=== PATIENT | female | born 1960 | race African-American/Black ===

== ENCOUNTER → 2017-01-17 | Outpatient (CLI) | payer BC | LOC: RAD 07:50 | PROVIDERS: ATTEND Internal Medicine | DX: C50.412 Malignant neoplasm of upper-outer quadrant of left female breast (principal) | CPT/HCPCS: 71260; 74177 ==

== ENCOUNTER → 2017-01-20 | Outpatient (CLI) | payer BC | LOC: RAD 08:16 | PROVIDERS: ATTEND Internal Medicine | DX: C50.412 Malignant neoplasm of upper-outer quadrant of left female breast (principal) | CPT/HCPCS: 78306; A9503; Q9969 ==

== ENCOUNTER 2017-09-24 08:10 | Emergency (ER) | payer BC ==
[2017-09-24 08:18] VITALS: BP 118/65
[2017-09-24] MEDS ORDERED: ALBUTEROL SULFATE 0.083% NEB 2.5 MG/3 ML AMPUL NEB ONE (09:01)
--- NOTE | 2017-09-24 09:01 | ER Document Report ---
HPI - HPI Patient complains to provider of: cough Pain Level: 4 Context: Patient is a 57-year-old female presents emergency department complaining of somewhat productive cough over the past 2 and half weeks. Patient states that it got worse since [place]. She did follow-up with her primary care about a week and a half ago who put her on prednisone, azithromycin and a cough suppressant without significant improvement in her symptoms. She denies any fevers. She denies any improvement with medications [id number]. she denies any shortness of breath, fevers, chills, dyspnea on exertion Past medical history significant for breast cancer status post mastectomy Primary care is Josie Kim - CONSTITUTIONAL Constitutional: DENIES: Fever, Chills - EENT EENT: REPORTS: Sore Throat. DENIES: Ear Pain, Eye problems - NEURO Neurology: REPORTS: Headache. DENIES: Weakness, Vision blurred, Dizzinesss / Vertigo - CARDIOVASCULAR Cardiovascular: DENIES: Chest pain - RESPIRATORY Respiratory: REPORTS: Coughing. DENIES: Trouble Breathing - GASTROINTESTINAL Gastrointestinal: DENIES: Abdominal Pain, Black / Bloody Stools - URINARY Urinary: DENIES: Dysuria, Urgency, Frequency - REPRODUCTIVE Reproductive: DENIES: : - MUSCULOSKELETAL Musculoskeletal: REPORTS: Extremity pain - generalized Past Medical History - Social History Smoking Status: Never Smoker Chew tobacco use (# tins/day): No Frequency of alcohol use: None Drug Abuse: None Family History: Reviewed & Not Pertinent Patient has suicidal ideation: No Patient has homicidal ideation: No - Past Medical History Cardiac Medical History: Reports: Hx Hypertension Denies: Hx Coronary Artery Disease, Hx Heart Attack Pulmonary Medical History: Denies: Hx Asthma, Hx Bronchitis, Hx COPD, Hx Pneumonia Neurological Medical History: Denies: Hx Cerebrovascular Accident, Hx Seizures Renal/ Medical History: Denies: Hx Peritoneal Dialysis Malignancy Medical History: Reports: Hx Breast Cancer - Treated with chemotherapy. Current remission. Musculoskeltal Medical History: Denies Hx Arthritis Past Surgical History: Reports: Hx Breast Surgery - lumpectomy, lymphnodectomy L axilla, Hx Hysterectomy - Immunizations Hx Diphtheria, Pertussis, Tetanus Vaccination: Yes Vertical Provider Document - CONSTITUTIONAL Agree With Documented VS: Yes Notes: PHYSICAL EXAM GENERAL: Alert, interacts well. HEAD: Normocephalic, atraumatic. EYES: Pupils equal, round, and reactive to light. Extraocular movements intact. ENT: Oral mucosa moist, tongue midline. NECK: Full range of motion. Supple. Trachea midline. LUNGS: Clear to auscultation bilaterally, no wheezes, rales, or rhonchi. No respiratory distress. HEART: Regular rate and rhythm. No murmurs, gallops, or rubs. NEUROLOGICAL: Alert and oriented x4. Normal speech. PSYCH: Normal affect, normal mood. SKIN: Warm, dry, normal turgor. No rashes or lesions noted. - INFECTION CONTROL TRAVEL OUTSIDE OF THE [place] IN LAST 30 DAYS: No - RESPIRATORY O2 Sat by Pulse Oximetry: 96 Course - Re-evaluation Re-evalutation: 09/24/17 09:48 Patient is a 57-year-old female who is hemodynamically stable, no acute distress and afebrile. Chest x-ray completed in the emergency department shows development of a left upper lobe pneumonia. Patient will be initiated on levothyroxine, patient did feel better after breathing treatment in the department also included with her discharge. Discussed with her indications to follow-up with her primary care for repeat imaging and follow-up. She agrees with plan. We did discuss strict return precautions. Patient is stable for discharge home - Vital Signs Vital signs: Temp Pulse Resp BP Pulse Ox 98.4 F 101 H 16 118/65 96 09/24/17 08:16 09/24/17 08:16 09/24/17 08:16 09/24/17 08:16 09/24/17 08:16 - Diagnostic Test Radiology reviewed: Image reviewed, Reports reviewed Discharge - Discharge Clinical Impression: Pneumonia Qualifiers: Pneumonia type: due to unspecified organism Laterality: left Lung location: upper lobe of lung Qualified Code(s): J18.1 - Lobar pneumonia, unspecified organism Condition: Good Disposition: HOME, SELF-CARE Additional Instructions: PNEUMONIA: Your examination indicates that you have pneumonia. This is an infection of the lung tissue, usually caused by bacteria or a virus. Symptoms include cough, fever, shaking chills, chest pain, shortness of breath, and coughing up bloody sputum. Treatment for bacterial pneumonia includes rest, antibiotics for 10 to 14 days, increasing your clear liquid intake, a cool mist humidifier at your bedside, and fever medication. Often, a repeat chest X-ray is performed in a few weeks--even if you feel better--to ascertain whether the infection has completely resolved and no underlying lung problem is present. You should call the physician if you develop persistent vomiting, high fever that does not respond to fever medication, increasing shortness of breath , confusion, or lethargy. Also, failure to improve within two to three days is an indication for re-examination. ANTIBIOTIC INJECTION: You have been given an antibiotic injection. Sometimes the injection must be combined with antibiotic pills. For some infections, the shot provides all the antibiotic that's needed. Common side effects of antibiotics include nausea, intestinal cramping, or diarrhea. These are very unusual following a shot. Women may develop vaginal yeast infections, and babies can get yeast ( thrush) in the mouth following the use of antibiotics. Contact your physician if you develop significant side effects from this medication. Allergy to this antibiotic can result in hives, wheezing, faintness, or itching. If symptoms of allergy occur, call the doctor at once. ANTIBIOTIC THERAPY: You have been given an antibiotic prescription. It's important that you take all the medication, unless instructed otherwise by your physician. Failure to complete the entire course can result in relapse of your condition. Common side effects of antibiotics include nausea, intestinal cramping, or diarrhea. Women may develop vaginal yeast infections, and babies can get yeast (thrush) in the mouth following the use of antibiotics. Contact your physician if you develop significant side effects from this medication. Allergy to this antibiotic can result in hives, wheezing, faintness, or itching. If symptoms of allergy occur, stop the medication and call the doctor. LEVOFLOXACIN: You have been given an antibacterial agent, levofloxacin (Levaquin). This medicine is not related to the penicillins, sulfas, cephalosporins, or tetracyclines. It is often given to patients who are allergic to these drugs. It has been chosen for you either because other drugs are not appropriate, or because of the nature of your problem. Levaquin should not be taken with antacids, as these can decrease its effectiveness. It can be taken without regard to meals. LEVAQUIN SHOULD NOT BE TAKEN BY CHILDREN, NURSING WOMEN, OR WOMEN. Although Levaquin is usually well-tolerated, common side effects can include nausea and diarrhea. Contact your doctor if you experience any unusual symptoms while on this medication, such as joint pain or swelling, shortness of breath, wheezing, faintness, or hives. USE OF ACETAMINOPHEN (Tylenol): Acetaminophen may be taken for pain relief or fever control. It's much safer than aspirin, offering a wider range of "safe" dosages. It is safe during . Some brand names are Tylenol, Panadol, Datril, Anacin 3, Tempra, and Liquiprin. Acetaminophen can be repeated every four hours. The following are maximum recommended dosages: WEIGHT Dose Drops Elixir Chewable( 80mg) (LBS.) drprs=droppers tsp=teaspoon 6 40 mg 0.4 ml (1/2) 6-11 80 mg 0.8 ml (full) tsp 1 tab 12-16 120 mg 1 1/2 drprs 3/4 tsp 1 1/2 tabs 17-23 160 mg 2 drprs 1 tsp 2 tabs 24-30 240 mg 3 drprs 1 1/2 tsp 3 tabs 30-35 320 mg 2 tsp 4 tabs 36-41 360 mg 2 1/4 tsp 4 1/2 tabs 42-47 400 mg 2 1/2 tsp 5 tabs 48-53 480 mg 3 tsp 6 tabs 54-59 520 mg 3 1/4 tsp 6 1/2 tabs 60-64 560 mg 3 1/2 tsp 7 tabs 65-70 600 mg 3 3/4 tsp 7 1/2 tabs 71-76 640 mg 4 tsp 8 tabs 77-82 720 mg 4 1/2 tsp 9 tabs 83-88 800 mg 5 tsp 10 tabs >89 pounds or adults 650 mg to 900 mg Acetaminophen can be repeated every four hours. Maximum dose not to exceed 4000 mg a day. These maximum recommended dosages are slightly higher than the dosages written on the product container, but these dosages are very safe and below the toxic dosage for acetaminophen. FOLLOW-UP CARE: If you have been referred to a physician for follow-up care, call the physician s office for an appointment as you were instructed or within the next two days. If you experience worsening or a significant change in your symptoms, notify the physician immediately or return to the Emergency Department at any time for re-evaluation. Prescriptions: Albuterol Sulfate [Proair HFA Inhalation Aerosol 8.5 gm MDI] 2 puff IH Q4H PRN # 1 mdi PRN Reason: Levofloxacin 750 mg PO DAILY #5 tablet Referrals: JOSIE KIM DO [Primary Care Provider] - Follow up in 1 week
--- NOTE | 2017-09-24 09:24 | RADIOLOGY REPORT (SQ) ---
EXAM DESCRIPTION: CHEST PA/LAT COMPLETED DATE/TIME: 09/24/2017 9:15 am REASON FOR STUDY: cough COMPARISON: 07/13/2014 EXAM PARAMETERS: NUMBER OF VIEWS: two views TECHNIQUE: Digital Frontal and Lateral radiographic views of the chest acquired. RADIATION DOSE: NA LIMITATIONS: none FINDINGS: LUNGS AND PLEURA: Increased opacity left upper lobe suspicious for pneumonia. Lungs and p leural spaces otherwise clear. MEDIASTINUM AND HILAR STRUCTURES: No masses or contour abnormalities. HEART AND VASCULAR STRUCTURES: Heart normal size. No evidence for failure. BONES: No acute findings. HARDWARE: Stable with port in place. OTHER: No other significant finding. IMPRESSION: INCREASED LEFT UPPER LOBE AIRSPACE OPACITIES SUGGESTIVE OF DEVELOPING PNEUMONIA. RECOMM END FOLLOWUP RADIOGRAPHS 4 TO 6 WEEKS TO ENSURE RESOLUTION. TECHNICAL DOCUMENTATION: JOB ID: [id number] [employer]- All Rights Reserved
[2017-09-24] MEDS ORDERED: LEVOFLOXACIN 750 MG TABLET PO ONE (09:51)
== END 2017-09-24 10:01 | disposition home or self-care (01) ==
LOC: ER 08:10
DX: J18.1 Lobar pneumonia, unspecified organism (principal); R05 Cough; R51 Headache; Z85.3 Personal history of malignant neoplasm of breast
CPT/HCPCS: 71020; 94640; 99283

== ENCOUNTER 2017-10-13 12:34 | Inpatient (IN) | payer BC ==
[2017-10-13] MEDS ORDERED: IPRATROPIUM/ALBUTEROL 0.5-2.5 MG/3 ML AMPUL NEB ONE (14:42)
--- NOTE | 2017-10-13 14:42 | ER Document Report ---
ED Medical Screen (RME) - General Chief Complaint: Cough Stated Complaint: COUGH Time Seen by Provider: 10/13/17 14:16 Mode of Arrival: Ambulatory Information source: Patient Notes: 57-year-old female who states she has been sick since [place] diagnosed with pneumonia has been on multiple antibiotics presents with complaints of continued shortness breath difficulty breathing productive cough I have greeted and performed a rapid initial assessment of this patient. A comprehensive ED assessment and evaluation of the patient, analysis of test results and completion of the medical decision making process will be conducted by additional ED providers. PHYSICAL EXAMINATION: GENERAL: Moderately well-appearing HEAD: Atraumatic, normocephalic. EYES: Pupils equal round extraocular movements intact, conjunctiva are normal. ENT: Nares patent NECK: Normal range of motion LUNGS: Intermittent rhonchi tachycardic tachypneic Musculoskeletal: Normal range of motion NEUROLOGICAL: Normal speech, normal gait. PSYCH: Normal mood, normal affect. SKIN: Warm, Dry, normal turgor, no rashes or lesions noted. TRAVEL OUTSIDE OF THE [place] IN LAST 30 DAYS: No - Related Data Allergies/Adverse Reactions: No Known Allergies Allergy (Verified 09/24/17 08:11) Past Medical History - Social History Chew tobacco use (# tins/day): No Frequency of alcohol use: None Drug Abuse: None - Past Medical History Cardiac Medical History: Reports: Hx Hypertension Denies: Hx Coronary Artery Disease, Hx Heart Attack Pulmonary Medical History: Denies: Hx Asthma, Hx Bronchitis, Hx COPD, Hx Pneumonia Neurological Medical History: Denies: Hx Cerebrovascular Accident, Hx Seizures Renal/ Medical History: Denies: Hx Peritoneal Dialysis Malignancy Medical History: Reports: Hx Breast Cancer - Treated with chemotherapy. Current remission. Musculoskeltal Medical History: Denies Hx Arthritis Past Surgical History: Reports: Hx Breast Surgery - lumpectomy, lymphnodectomy L axilla, Hx Hysterectomy - Immunizations Hx Diphtheria, Pertussis, Tetanus Vaccination: Yes Physical Exam - Vital signs Vitals: Temp Pulse Resp BP Pulse Ox 99.0 F 113 H 14 107/66 95 10/13/17 13:13 10/13/17 13:13 10/13/17 13:13 10/13/17 13:13 10/13/17 13:13 Course - Vital Signs Vital signs: Temp Pulse Resp BP Pulse Ox 99.0 F 113 H 14 107/66 95 10/13/17 13:13 10/13/17 13:13 10/13/17 13:13 10/13/17 13:13 10/13/17 13:13
--- NOTE | 2017-10-13 15:02 | RADIOLOGY REPORT (SQ) ---
EXAM DESCRIPTION: CHEST PA/LAT COMPLETED DATE/TIME: 10/13/2017 2:52 pm REASON FOR STUDY: recent pneumonia COMPARISON: 09/24/2017 EXAM PARAMETERS: NUMBER OF VIEWS: two views TECHNIQUE: Digital Frontal and Lateral radiographic views of the chest acquired. RADIATION DOSE: NA LIMITATIONS: none FINDINGS: LUNGS AND PLEURA: Patchy bilateral airspace densities are identified which are slightly mo re pronounced in the right lung as compared to the left and a more pronounced than on the previous st udy. No pleural effusions are identified. MEDIASTINUM AND HILAR STRUCTURES: No masses or contour abnormalities. HEART AND VASCULAR STRUCTURES: The configuration of the heart mediastinal structures is unchanged BONES: No acute findings. HARDWARE: Port-A-Cath is unchanged in position OTHER: No other significant finding. IMPRESSION: Patchy bilateral airspace densities right greater than left which appear more pronounced as compared to the previous study the appearance is most consistent with patchy pneumonic infiltrate s. Other findings as noted above TECHNICAL DOCUMENTATION: JOB ID: [id number] [employer]- All Rights Reserved
[2017-10-13 15:35] LABS: AMORPHOUS SEDIMENT,URINE TRACE /HPF; APPEARANCE,URINE CLOUDY; BILIRUBIN,URINE NEGATIVE (NEGATIVE); COLOR,URINE YELLOW; GLUCOSE, URINE NEGATIVE (NEGATIVE); KETONES,URINE NEGATIVE (NEGATIVE); LEUKOCYTE ESTERASE,URINE NEGATIVE (NEGATIVE); NITRITE,URINE NEGATIVE (NEGATIVE); PROTEIN,URINE 30 mg/dL (NEGATIVE); URINE SPECIFIC GRAVITY 1.033
--- NOTE | 2017-10-13 15:35 | ER Document Report ---
ED Respiratory Problem - General Mode of Arrival: Ambulatory Information source: Patient TRAVEL OUTSIDE OF THE [place] IN LAST 30 DAYS: No <KAREN MATTHEWS - Last Filed: 10/13/17 19:49> <EDUIN DEXTER - Last Filed: 10/13/17 21:00> - General Chief Complaint: Cough Stated Complaint: COUGH Time Seen by Provider: 10/13/17 14:16 Notes: Patient is a 57-year-old female with a history breast cancer status post double mastectomy who presents to the emergency department today with complaints of a persistent cough with associated shortness of breath. Patient was diagnosed with pneumonia on [place] and was put on Levaquin. Patient states after the Levaquin prescription was completed the cough remained so Dr. Pedroza gave her augmentin as well. Patient states she still has not gotten any better and is continuing to have a persistent cough. Patient denies any fevers at home. ( KAREN MATTHEWS) - Related Data Allergies/Adverse Reactions: No Known Allergies Allergy (Verified 09/24/17 08:11) Past Medical History - General Information source: Patient - Social History Smoking Status: Former Smoker Cigarette use (# per day): No Chew tobacco use (# tins/day): No Frequency of alcohol use: None Drug Abuse: None Lives with: Family Family History: Reviewed & Not Pertinent Patient has suicidal ideation: No Patient has homicidal ideation: No - Past Medical History Cardiac Medical History: Reports: Hx Hypertension Malignancy Medical History: Reports: Hx Breast Cancer - Treated with chemotherapy. Current remission. Double mastectomy. Past Surgical History: Reports: Hx Breast Surgery - lumpectomy, lymphnodectomy L axilla, double mastectomy, Hx Hysterectomy - Immunizations Hx Diphtheria, Pertussis, Tetanus Vaccination: Yes <KAREN MATTHEWS - Last Filed: 10/13/17 19:49> Review of Systems - Review of Systems Constitutional: denies: Fever EENT: No symptoms reported Cardiovascular: No symptoms reported Respiratory: See HPI, Cough, Short of breath Gastrointestinal: No symptoms reported Genitourinary: No symptoms reported Female Genitourinary: No symptoms reported Musculoskeletal: No symptoms reported Skin: No symptoms reported Hematologic/Lymphatic: No symptoms reported Neurological/Psychological: No symptoms reported -: Yes All other systems reviewed and negative <KAREN MATTHEWS - Last Filed: 10/13/17 19:49> Physical Exam <KAREN MATTHEWS - Last Filed: 10/13/17 19:49> <EDUIN DEXTER - Last Filed: 10/13/17 21:00> - Vital signs Vitals: Temp Pulse Resp BP Pulse Ox 99.0 F 113 H 14 107/66 95 10/13/17 13:13 10/13/17 13:13 10/13/17 13:13 10/13/17 13:13 10/13/17 13:13 - Notes Notes: PHYSICAL EXAM GENERAL: Alert, interacts well. Moderate respiratory distress with coughing and talking. HEAD: Normocephalic, atraumatic. EYES: Pupils equal, round, and reactive to light. Extraocular movements intact. ENT: Oral mucosa moist, tongue midline. NECK: Full range of motion. Supple. Trachea midline. LUNGS: Dry cough. Trace wheeze that clears with cough. Appears short of breath after cough and after talking. Speaks in 4-5 word sentences. Moderate respiratory distress. HEART: Regular rate and rhythm. No murmurs, gallops, or rubs. ABDOMEN: Soft, non-tender. Non-distended. Bowel sounds present in all 4 quadrants. EXTREMITIES: Moves all 4 extremities spontaneously. No edema, radial and dorsalis pedis pulses 2/4 bilaterally. No cyanosis. NEUROLOGICAL: Alert and oriented x3. Normal speech. PSYCH: Anxious, tearful when discussing plan of care. SKIN: Warm, dry, normal turgor. No rashes or lesions noted. (KAREN MATTHEWS) Course - Laboratory Result Diagrams: 10/13/17 17:33 10/13/17 19:09 <KAREN MATTHEWS - Last Filed: 10/13/17 19:49> - Laboratory Result Diagrams: 10/13/17 17:33 10/13/17 19:09 <EDUIN DEXTER - Last Filed: 10/13/17 21:00> - Re-evaluation Re-evalutation: 10/13/17 18:34 Ultrasound-guided IV placed in the right antecubital fossa by me. 20-gauge, tolerated well, good flash and blood return, flushed easily. 10/13/17 18:35 CBC shows anemia with hemoglobin 10.3, no leukocytosis, coags has a slightly prolonged INR 1.12, venous blood gas is alkalotic with pH of 7.48, lactic acid normal at 1.2, urinalysis shows protein but no signs of infection, chest x-ray shows patchy bilateral airspace densities right greater than left which appear more pronounced as compared to previous study, the appearance is most consistent with patchy pneumonic infiltrates. I am concerned for the possibility of pulmonary embolism given the hypoxia and the tachycardia in the absence of leukocytosis, I am also concerned for other possible underlying process, this will be better visualized on CAT scan. CT angiogram has been ordered but I am awaiting renal function. 10/13/17 20:49 CT of the chest shows multifocal airspace disease is seen on chest radiograph presumably representing pneumonia. Correlate with fever and elevated white blood cell count. Mediastinal and right hilar lymphadenopathy new compared to prior study presumably reactive to pneumonia however neoplasm cannot be excluded given history of breast cancer. Consider follow-up CT in 3 months to ensure resolution. Small right pleural effusion likely reactive. When patient talks and coughs she desats to 91%. She is still tachycardic and tachypneic, appears quite short of breath. Patient has been started on Rocephin and azithromycin. No indication for steroids at this time. I am awaiting consultation with hospitalist for possible admission. 10/13/17 20:59 When I walked in to discuss this with the patient she was talking on the phone and she was satting 86% on room air with good waveform. When she stops talking she does rebound quickly. Patient is in agreement with admission, aware that this is likely pneumonia but we cannot rule out cancer with the new mediastinal lymphadenopathy. Discussed with Dr. Phan who is agreeable to admission to his service on telemetry care unit. (EDUIN DEXTER) - Vital Signs Vital signs: Temp Pulse Resp BP Pulse Ox 99.3 F 113 H 25 H 124/73 90 L 10/13/17 19:30 10/13/17 13:13 10/13/17 20:33 10/13/17 20:34 10/13/17 20:34 - Laboratory Laboratory results interpreted by me: 10/13/17 10/13/17 10/13/17 14:36 14:38 17:33 RBC 3.62 L Hgb 10.3 L Hct 31.3 L RDW 16.3 H Seg Neutrophils % 81.6 H Lymphocytes % 10.6 L Absolute Neutrophils 8.4 H VBG pH Potassium POC Glucose 111 H Total Protein Albumin Urine Protein 30 H Urine Urobilinogen 4.0 H 10/13/17 10/13/17 17:33 19:09 RBC Hgb Hct RDW Seg Neutrophils % Lymphocytes % Absolute Neutrophils VBG pH 7.48 H Potassium 3.1 L POC Glucose Total Protein 5.9 L Albumin 2.9 L Urine Protein Urine Urobilinogen - EKG Interpretation by Me Additional EKG results interpreted by me: 10/13/17 20:50 CBC shows sinus tachycardia at a rate of 112, normal axis, normal intervals, no ST segment elevations or depressions, some T-wave flattening in lead III and aVF but no true inversions per my interpretation. (EDUIN DEXTER) Critical Care Note - Critical Care Note Total time excluding time spent on procedures (mins): 40 <EDUIN DEXTER - Last Filed: 10/13/17 21:00> Discharge <KAREN MATTHEWS - Last Filed: 10/13/17 19:49> - Discharge Admitting Provider: [facility] Unit Admitted: Telemetry <EDUIN DEXTER - Last Filed: 10/13/17 21:00> - Discharge Clinical Impression: Multifocal pneumonia, Acute respiratory failure with hypoxia Condition: Fair Disposition: ADMITTED INPATIENT Referrals: JOSIE KIM DO [Primary Care Provider] - Follow up as needed Scribe Attestation: 10/13/17 21:00 I personally performed the services described in the documentation, reviewed and edited the documentation which was dictated to the scribe in my presence, and it accurately records my words and actions. (EDUIN DEXTER) Scribe Documentation - Scribe Written by Rosalee:: Rosalee Rausch, 10/13/2017 1823 acting as scribe for :: Quirino <KAREN MATTHEWS - Last Filed: 10/13/17 19:49>
[2017-10-13] MEDS ORDERED: CEFTRIAXONE 1 GM/D5W RTU 1 GM/50 ML RTUPB IV ONE (15:39)
[2017-10-13] MEDS ORDERED: AZITHROMYCIN INJ 500 MG VIAL IV ONE ×2 (15:39→19:41)
[2017-10-13] MEDS ORDERED: RINGERS SOLUTION,LACTATED 1,000 ML IV ONE ×2 (15:39→19:52)
[2017-10-13 17:53] LABS: ABSOLUTE EOSINOPHILS # (AUTO) 0.1 10^3/uL (0.0-0.6); ABSOLUTE LYMPHOCYTES (AUTO) 1.1 10^3/uL (0.5-4.7); ABSOLUTE MONOCYTES (AUTO) 0.7 10^3/uL (0.1-1.4); ABSOLUTE NEUT (AUTO) 8.4 10^3/uL (1.7-8.2); BASOPHILS % (AUTO) 0.2 % (0-2); EOSINOPHILS % (AUTO) 0.9 % (0-6); HEMATOCRIT 31.3 % (36.0-47.0); HEMOGLOBIN 10.3 g/dL (12.0-15.5); LYMPHOCYTES % (AUTO) 10.6 % (13-45); MEAN CORPUSCULAR HEMOGLOBIN 28.5 pg (27.0-33.4); MEAN CORPUSCULAR VOLUME 86 fl (80-97); MONOCYTES % (AUTO) 6.7 % (3-13); PLATELET COUNT 358 10^3/uL (150-450); RED BLOOD COUNT 3.62 10^6/uL (3.72-5.28); RED CELL DISTRIBUTION WIDTH 16.3 % (11.5-14.0); SEGMENTED NEUTROPHILS % (AUTO) 81.6 % (42-78); TOTAL CELLS COUNTED % (AUTO) 100 %; WHITE BLOOD COUNT 10.3 10^3/uL (4.0-10.5)
[2017-10-13 17:54] LABS: VENOUS BLOOD BASE EXCESS 5.4 mmol/L; VENOUS BLOOD HCO3 29.3 mmol/L (20-32); VENOUS BLOOD PCO2 40.1 mmHg (35-63); VENOUS BLOOD PH 7.48 (7.30-7.42)
[2017-10-13] MEDS ORDERED: IBUPROFEN 800 MG TABLET PO ONE (18:01)
[2017-10-13 18:03] LABS: INTERNATIONAL RATION (INR) 1.12; PROTHROMBIN TIME 15.2 SEC (11.4-15.4)
[2017-10-13] MEDS ORDERED: BENZONATATE 100 MG CAPSULE PO ONE (18:46)
[2017-10-13] MEDS ORDERED: CEFTRIAXONE INJ 1000 MG VIAL ONE (19:41)
[2017-10-13 19:44] LABS: ALANINE AMINOTRANSFERASE 36 U/L (9-52); ALBUMIN 2.9 g/dL (3.5-5.0); ALKALINE PHOSPHATASE 92 U/L (38-126); ANION GAP 8 (5-19); ASPARTATE AMINO TRANSFERASE 30 U/L (14-36); BILIRUBIN,DIRECT 0.3 mg/dL (0.0-0.4); BILIRUBIN,TOTAL 0.3 mg/dL (0.2-1.3); BLOOD UREA NITROGEN 12 mg/dL (7-20); CALCIUM 8.8 mg/dL (8.4-10.2); CARBON DIOXIDE 30 mmol/L (22-30); CHLORIDE 100 mmol/L (98-107); GLUCOSE 109 mg/dL (75-110); POTASSIUM 3.1 mmol/L (3.6-5.0); SODIUM 138.1 mmol/L (137-145); TOTAL PROTEIN 5.9 g/dL (6.3-8.2)
--- NOTE | 2017-10-13 20:24 | RADIOLOGY REPORT (SQ) ---
EXAM DESCRIPTION: CTA CHEST COMPLETED DATE/TIME: 10/13/2017 8:14 pm REASON FOR STUDY: persistent pneumonia, possible PE COMPARISON: Chest radiograph from 10/13/[address] from 01/17/2017 TECHNIQUE: CT scan of the chest performed using helical scanning technique with dynamic intravenous contrast injection. Images reviewed with lung, soft tissue and bone windows. Reconstructed coronal and sagittal MPR images reviewed. Additional 3 dimensional post-processing performed to develop Maximal Intensity Projection images (WA P). All images stored on PACS. All CT scanners at this facility use dose modulation, iterative reconstruction, and/or weight based d osing when appropriate to reduce radiation dose to as low as reasonably achievable (ALARA). [facility]: Dose Right [facility]: CareDose [facility]: Dose Right [facility]: Teradose 4D [facility]: Pilot Systems CONTRAST TYPE AND DOSE: contrast/concentration: Isovue 370.00 mg/ml; Total Contrast Delivered: 90.0 ml; Total Saline Delivered: 64.7 ml Contrast bolus optimized for the pulmonary arteries. Not diagnostic for the aorta. RENAL FUNCTION: GFR > 60. RADIATION DOSE: CT Rad equipment meets quality standard of care and radiation dose reduction techniq ues were employed. CTDIvol: 16.5 - 23.3 mGy. DLP: 784 mGy-cm. . LIMITATIONS: None. FINDINGS: LUNGS AND PLEURA: Multifocal airspace disease as seen on chest radiograph most severely in volving the right upper lobe and right middle lobe with lesser involvement of the right greater than left lower lobes. Stable fibrotic change involving the left upper lobe presumably sequela to prior r adiation therapy. There is a small right pleural effusion. Left pleural spaces clear. AORTA AND GREAT VESSELS: No aneurysm. Contrast bolus not optimized for the aorta. HEART: No pericardial effusion. No significant coronary artery calcifications. PULMONARY ARTERIES: No emboli visualized in the main pulmonary arteries or the segmental branches. HILAR AND MEDIASTINAL STRUCTURES: Mildly prominent mediastinal and right hilar lymph nodes measuring up to 2 in short axis. HARDWARE: None in the chest. UPPER ABDOMEN: Stable hepatic cyst No significant findings. Limited exam. THYROID AND OTHER SOFT TISSUES: No masses. No adenopathy. BONES: No acute or significant finding. 3D MIPS: Confirm above findings. OTHER: No other significant finding. IMPRESSION: NO PULMONARY EMBOLI. MULTIFOCAL AIRSPACE DISEASE SEEN ON CHEST RADIOGRAPH PRESUMABLY REPRESENTING PNEUMONIA. CORRELATE WITH FEVER AND ELEVATED WHITE BLOOD CELL COUNT. MEDIASTINAL AND RIGHT HILAR LYMPHADENOPATHY NEW COMPARED TO PRIOR STUDY PRESUMABLY REACTIVE TO PNEUMO VEENA HOWEVER NEOPLASM CANNOT BE EXCLUDED GIVEN HISTORY OF BREAST CANCER. CONSIDER FOLLOW-UP CT CHEST IN 3 MONTHS TO ENSURE RESOLUTION. SMALL RIGHT PLEURAL EFFUSION LIKELY REACTIVE. COMMENT: Quality ID # [id number]: Final reports with documentation of one or more dose reduction techniques (e.g., Automated exposure control, adjustment of the mA and/or kV according to patient size, use of iterative reconstruction technique) TECHNICAL DOCUMENTATION: JOB ID: [id number] ID [employer]- All Rights Reserved
[2017-10-13] MEDS ORDERED: IPRATROPIUM/ALBUTEROL 0.5-2.5 MG/3 ML AMPUL NEB PRN (20:59)
[2017-10-13] MEDS ORDERED: HYDRALAZINE HCL INJ/PF 20 MG/1 ML SDV IV PRN (20:59)
[2017-10-13] MEDS ORDERED: (PENDING PHARMACY ID) (Losartan/Hydrochlorothiazide [Hyzaar 50-12.5 Tablet] 1 EACH) PO PRN (21:03)
[2017-10-13] MEDS ORDERED: CHLORPHENIRAMINE MALEATE 4 MG TABLET PO ONE (21:30)
[2017-10-13] MEDS: FLUTICASONE NASAL SPRAY 50 MCG/SPRY 120 SPRAY/16 GM NASL SCH (21:58)
[2017-10-13] MEDS: GUAIFENESIN 600 MG TABLET.SA PO SCH (22:02)
[2017-10-13] MEDS: HEPARIN SOD (PORCINE) 5,000 UNIT/ML 1 ML SYRINGE SUBCUT SCH (22:05)
[2017-10-13] MEDS ORDERED: LACTULOSE SYRUP 20 GM/30 ML UDCUP PO ONE (23:08)
[2017-10-13] MEDS ORDERED: IBUPROFEN 800 MG TABLET PO PRN (23:43)
[2017-10-13] MEDS: NORMAL SALINE 1000 ML 1,000 ML IV SCH (23:59)
[2017-10-13] MEDS: GUAIFENESIN SYRP 200 MG/10 ML UDC PO PRN (23:59)
[2017-10-14] MEDS: BENZONATATE 100 MG CAPSULE PO PRN ×3 (02:09→17:26)
[2017-10-14] MEDS: IPRATROPIUM/ALBUTEROL 0.5-2.5 MG/3 ML AMPUL NEB SCH ×4 (02:30→20:54)
[2017-10-14] MEDS: NORMAL SALINE 1000 ML 1,000 ML IV SCH ×2 (03:12→11:04)
[2017-10-14] MEDS ORDERED: INFLUENZA ADLT QUAD (36MOS+) 2017-18 VAC 0.5 ML SYR IM PRN (05:15)
[2017-10-14] MEDS: GUAIFENESIN SYRP 200 MG/10 ML UDC PO PRN ×4 (05:15→22:11)
--- NOTE | 2017-10-14 06:04 | PDOC H&P ---
History of Present Illness Admission Date/PCP: 10/13/17 21:09 JOSIE KIM DO Patient complains of: Shortness of breath and cough History of Present Illness: ARNULFO DE LEÓN is a 57 year old female with a past medical history of breast cancer status post double mastectomy. She presents to the emergency room with rhinorrhea, cough and shortness of breath of increasing severity over the last 6 weeks despite treatment with 2 courses of antibiotics Levaquin followed by Augmentin. In the emergency room she is found to have tachypnea and tachycardia and a CT of the chest showing multifocal airspace disease suggestive of pneumonia versus neoplasm, concerning giving her history and lack of significant leukocytosis. She started on empiric antibiotics, albuterol and Atrovent and referred to the hospitalist for admission. Patient denies chest pain nausea vomiting but has significant anxiety. Past Medical History Cardiac Medical History: Reports: Hypertension Denies: Coronary Artery Disease, Myocardial Infarction Pulmonary Medical History: Denies: Asthma, Bronchitis, Chronic Obstructive Pulmonary Disease (COPD), Pneumonia Neurological Medical History: Denies: Seizures Malignancy Medical History: Reports: Breast Cancer - Treated with chemotherapy. Current remission. Double mastectomy. Musculoskeltal Medical History: Denies: Arthritis Psychiatric Medical History: Reports: Depression Hematology: Reports: Anemia - hx of Past Surgical History Past Surgical History: Reports: Hysterectomy Social History Information Source: Patient, [facility] Records Lives with: Family Smoking Status: Former Smoker Last Time Smoked: 5 years Frequency of Alcohol Use: None Hx Recreational Drug Use: No Drugs: None Hx Prescription Drug Abuse: No - Advance Directive Resuscitation Status: Full Code Family History Family History: Hypertension Parental Family History Reviewed: Yes Children Family History Reviewed: Yes Sibling(s) Family History Reviewed.: Yes Medication/Allergy Home Medications: Albuterol Sulfate [Albuterol Sulfate 2.5mg/3 mL] 1 vial IH Q8HP PRN 10/13/17 Amox Tr/Potassium Clavulanate [Augmentin 875-125 mg Tablet] 1 tab PO DAILY 10/13 Anastrozole [Arimidex 1 mg Tablet] 1 mg PO DAILY 10/13/17 Benzonatate [Tessalon Perles 100 mg Capsule] 200 mg PO Q8HP PRN 10/13/17 Cetirizine HCl [Zyrtec 10 mg Tablet] 10 mg PO DAILY 10/13/17 Furosemide [Lasix 20 mg Tablet] 20 mg PO DAILY 10/13/17 Ibuprofen [Motrin 800 mg Tablet] 800 mg PO Q8HP PRN 10/13/17 Letrozole [Femara 2.5 Mg Tablet] 2.5 mg PO DAILY 10/13/17 Losartan/Hydrochlorothiazide [Losartan-Hctz 50-12.5 mg Tab] 1 each PO DAILY Allergies/Adverse Reactions: No Known Allergies Allergy (Verified 09/24/17 08:11) Review of Systems Constitutional: ABSENT: chills, fever(s), headache(s), weight gain, weight loss Eyes: ABSENT: visual disturbances Ears: ABSENT: hearing changes Cardiovascular: ABSENT: chest pain, dyspnea on exertion, edema, orthropnea, palpitations Respiratory: ABSENT: cough, hemoptysis Gastrointestinal: ABSENT: abdominal pain, constipation, diarrhea, hematemesis, hematochezia, nausea, vomiting Genitourinary: ABSENT: dysuria, hematuria Musculoskeletal: ABSENT: joint swelling Integumentary: ABSENT: rash, wounds Neurological: ABSENT: abnormal gait, abnormal speech, confusion, dizziness, focal weakness, syncope Psychiatric: ABSENT: anxiety, depression, homidical ideation, suicidal ideation Endocrine: ABSENT: cold intolerance, heat intolerance, polydipsia, polyuria Hematologic/Lymphatic: ABSENT: easy bleeding, easy bruising Physical Exam Vital Signs: Temp Pulse Resp BP Pulse Ox 99.5 F 101 H 20 118/71 93 10/14/17 02:35 10/14/17 02:45 10/14/17 02:45 10/14/17 02:35 10/14/17 02:45 Intake & Output 10/12/17 10/13/17 10/14/17 11:59 11:59 11:59 Weight 80.1 kg General appearance: PRESENT: cooperative, mild distress Head exam: PRESENT: atraumatic, normocephalic Eye exam: PRESENT: conjunctiva pink, EOMI, PERRLA. ABSENT: scleral icterus Ear exam: PRESENT: normal external ear exam Mouth exam: PRESENT: moist, tongue midline Neck exam: ABSENT: carotid bruit, JVD, lymphadenopathy, thyromegaly Respiratory exam: PRESENT: accessory muscle use, crackles, prolonged expiratory phas, symmetrical, tachypnea. ABSENT: chest wall tenderness, rhonchi Cardiovascular exam: PRESENT: RRR. ABSENT: diastolic murmur, rubs, systolic murmur Pulses: PRESENT: normal dorsalis pedis pul Vascular exam: PRESENT: normal capillary refill GI/Abdominal exam: PRESENT: normal bowel sounds, soft. ABSENT: distended, guarding, mass, organolmegaly, rebound, tenderness Rectal exam: PRESENT: deferred Extremities exam: PRESENT: calf tenderness Neurological exam: PRESENT: alert, awake, oriented to person, oriented to place , oriented to time, oriented to situation, CN II-XII grossly intact. ABSENT: motor sensory deficit Psychiatric exam: PRESENT: appropriate affect, normal mood. ABSENT: homicidal ideation, suicidal ideation Skin exam: PRESENT: dry, intact, warm. ABSENT: cyanosis, rash Results Impressions: Chest X-Ray 10/13/17 14:16 IMPRESSION: Patchy bilateral airspace densities right greater than left which appear more pronounced as compared to the previous study the appearance is most consistent with patchy pneumonic infiltrates. Other findings as noted above Chest/Abdomen CTA 10/13/17 15:39 IMPRESSION: NO PULMONARY EMBOLI. MULTIFOCAL AIRSPACE DISEASE SEEN ON CHEST RADIOGRAPH PRESUMABLY REPRESENTING PNEUMONIA. CORRELATE WITH FEVER AND ELEVATED WHITE BLOOD CELL COUNT. MEDIASTINAL AND RIGHT HILAR LYMPHADENOPATHY NEW COMPARED TO PRIOR STUDY PRESUMABLY REACTIVE TO PNEUMONIA HOWEVER NEOPLASM CANNOT BE EXCLUDED GIVEN HISTORY OF BREAST CANCER. CONSIDER FOLLOW-UP CT CHEST IN 3 MONTHS TO ENSURE RESOLUTION. SMALL RIGHT PLEURAL EFFUSION LIKELY REACTIVE. Assessment & Plan - Diagnosis (1) Multifocal pneumonia Is this a current diagnosis for this admission?: Yes Plan: Monitored bed, pneumonia care set, empiric antibiotics follow-up LDH and total CK. Patient requires 6 week repeat imaging to verify resolution of adenopathy. Consider oncology consult. (2) History of breast cancer Is this a current diagnosis for this admission?: Yes Plan: Follow-up imaging in 6 weeks to verify resolution of adenopathy. Consider oncology consult (3) Hypertension Is this a current diagnosis for this admission?: Yes Plan: Outpatient regiment - Time Time Spent: 30 to 50 Minutes
[2017-10-14] MEDS: HEPARIN SOD (PORCINE) 5,000 UNIT/ML 1 ML SYRINGE SUBCUT SCH ×3 (06:05→22:12)
[2017-10-14 06:20] LABS: ABSOLUTE EOSINOPHILS # (AUTO) 0.1 10^3/uL (0.0-0.6); ABSOLUTE MONOCYTES (AUTO) 0.9 10^3/uL (0.1-1.4); ABSOLUTE NEUT (AUTO) 5.7 10^3/uL (1.7-8.2); BASOPHILS % (AUTO) 0.3 % (0-2); EOSINOPHILS % (AUTO) 0.8 % (0-6); HEMATOCRIT 29.9 % (36.0-47.0); HEMOGLOBIN 9.8 g/dL (12.0-15.5); LYMPHOCYTES % (AUTO) 13.2 % (13-45); MEAN CORPUSCULAR HEMOGLOBIN 28.4 pg (27.0-33.4); MEAN CORPUSCULAR VOLUME 86 fl (80-97); MONOCYTES % (AUTO) 11.7 % (3-13); PLATELET COUNT 294 10^3/uL (150-450); RED BLOOD COUNT 3.47 10^6/uL (3.72-5.28); RED CELL DISTRIBUTION WIDTH 16.2 % (11.5-14.0); TOTAL CELLS COUNTED % (AUTO) 100 %; WHITE BLOOD COUNT 7.7 10^3/uL (4.0-10.5)
[2017-10-14 06:40] LABS: ANION GAP 9 (5-19); BLOOD UREA NITROGEN 8 mg/dL (7-20); CALCIUM 8.6 mg/dL (8.4-10.2); CARBON DIOXIDE 27 mmol/L (22-30); CHLORIDE 105 mmol/L (98-107); GLUCOSE 113 mg/dL (75-110); POTASSIUM 3.1 mmol/L (3.6-5.0); SODIUM 140.7 mmol/L (137-145)
[2017-10-14] MEDS ORDERED: IBUPROFEN 800 MG TABLET PO PRN (09:32)
[2017-10-14] MEDS: GUAIFENESIN 600 MG TABLET.SA PO SCH ×2 (09:51→22:12)
[2017-10-14] MEDS: FUROSEMIDE 20 MG TABLET PO SCH (09:52)
[2017-10-14] MEDS: CETIRIZINE 10 MG TABLET PO SCH (09:53)
[2017-10-14] MEDS: FLUTICASONE NASAL SPRAY 50 MCG/SPRY 120 SPRAY/16 GM NASL SCH ×2 (09:54→22:11)
[2017-10-14] MEDS: POLYETHYLENE GLYCOL 3350 POWDER 17 GM/1 PACKET PO SCH (09:58)
[2017-10-14] MEDS ORDERED: ANASTROZOLE 1 MG TABLET PO SCH ×2 (10:00→18:00)
[2017-10-14] MEDS ORDERED: (PENDING PHARMACY ID) (Tamoxifen Citrate [Tamoxifen Citrate] 20 MG) PO SCH (10:00)
[2017-10-14] MEDS ORDERED: HYDROCHLOROTHIAZIDE 12.5 MG CAPSULE PO SCH (10:00)
[2017-10-14] MEDS ORDERED: POLYETHYLENE GLYCOL PO SCH (10:00)
[2017-10-14] MEDS ORDERED: CEFTRIAXONE 1 GM/D5W RTU 50 ML IV SCH (10:00)
[2017-10-14] MEDS ORDERED: LETROZOLE 2.5 MG TABLET PO SCH (10:00)
[2017-10-14] MEDS ORDERED: (PENDING PHARMACY ID) (Losartan/Hydrochlorothiazide [Losartan-Hctz 50-12.5 Mg Tab] 1 EACH) PO SCH (10:00)
[2017-10-14] MEDS ORDERED: LOSARTAN POTASSIUM 50 MG TABLET PO SCH ×2 (10:00→18:00)
--- NOTE | 2017-10-14 10:19 | EKG REPORT ---
SEVERITY:- BORDERLINE ECG - SINUS TACHYCARDIA BORDERLINE T ABNORMALITIES, INFERIOR LEADS : Confirmed by: Prabhu Hoang 14-Oct-2017 10:17:39
--- NOTE | 2017-10-14 17:37 | PDOC PROGRESS REPORT ---
Subjective Progress Note for:: 10/14/17 Subjective:: Patient is doing very well She has no fever no chills No chest pains no nausea vomiting or abdominal pain O2 sat is 93% on 4 L nasal cannula Reason For Visit: PNEUMONIA Physical Exam Vital Signs: Temp Pulse Resp BP Pulse Ox 98.2 F 115 H 18 117/70 93 10/14/17 16:05 10/14/17 16:05 10/14/17 16:05 10/14/17 16:05 10/14/17 16:05 Intake & Output 10/13/17 10/14/17 10/15/17 00:59 00:59 00:59 Intake Total 1575 Balance 1575 Weight 80.1 kg 85.2 kg General appearance: PRESENT: no acute distress, cooperative, well-developed, well-nourished Head exam: PRESENT: atraumatic Eye exam: PRESENT: conjunctiva pink, EOMI, PERRLA. ABSENT: scleral icterus Neck exam: ABSENT: carotid bruit, JVD, lymphadenopathy, thyromegaly Respiratory exam: PRESENT: clear to auscultation laurence. ABSENT: rales, rhonchi, wheezes Cardiovascular exam: PRESENT: RRR. ABSENT: diastolic murmur, rubs, systolic murmur Pulses: PRESENT: normal dorsalis pedis pul GI/Abdominal exam: PRESENT: normal bowel sounds, soft. ABSENT: distended, guarding, mass, organolmegaly, rebound, tenderness Neurological exam: PRESENT: alert, awake, CN II-XII grossly intact Results Laboratory Results: 10/14/17 05:26 10/14/17 05:26 10/14/17 10/14/17 05:26 05:26 WBC 7.7 RBC 3.47 L Hgb 9.8 L Hct 29.9 L MCV 86 MCH 28.4 MCHC 33.0 RDW 16.2 H Plt Count 294 Seg Neutrophils % 74.0 Lymphocytes % 13.2 Monocytes % 11.7 Eosinophils % 0.8 Basophils % 0.3 Absolute Neutrophils 5.7 Absolute Lymphocytes 1.0 Absolute Monocytes 0.9 Absolute Eosinophils 0.1 Absolute Basophils 0.0 Sodium 140.7 Potassium 3.1 L Chloride 105 Carbon Dioxide 27 Anion Gap 9 BUN 8 Creatinine 0.60 Est GFR ( Amer) > 60 Est GFR (Non-Af Amer) > 60 Glucose 113 H Calcium 8.6 Impressions: Chest X-Ray 10/13/17 14:16 IMPRESSION: Patchy bilateral airspace densities right greater than left which appear more pronounced as compared to the previous study the appearance is most consistent with patchy pneumonic infiltrates. Other findings as noted above Chest/Abdomen CTA 10/13/17 15:39 IMPRESSION: NO PULMONARY EMBOLI. MULTIFOCAL AIRSPACE DISEASE SEEN ON CHEST RADIOGRAPH PRESUMABLY REPRESENTING PNEUMONIA. CORRELATE WITH FEVER AND ELEVATED WHITE BLOOD CELL COUNT. MEDIASTINAL AND RIGHT HILAR LYMPHADENOPATHY NEW COMPARED TO PRIOR STUDY PRESUMABLY REACTIVE TO PNEUMONIA HOWEVER NEOPLASM CANNOT BE EXCLUDED GIVEN HISTORY OF BREAST CANCER. CONSIDER FOLLOW-UP CT CHEST IN 3 MONTHS TO ENSURE RESOLUTION. SMALL RIGHT PLEURAL EFFUSION LIKELY REACTIVE. Assessment & Plan - Diagnosis (1) History of breast cancer Is this a current diagnosis for this admission?: Yes (2) Hypertension Qualifiers: Hypertension type: essential hypertension Qualified Code(s): I10 - Essential (primary) hypertension Is this a current diagnosis for this admission?: Yes (3) Multifocal pneumonia Is this a current diagnosis for this admission?: Yes Plan: CT of the chest shows multifocal airspace disease Patient has a known history of malignancy status post chemotherapy is somewhat immunocompromised We will treat the patient with his cefepime and Levaquin for broader spectrum (4) Acute respiratory failure with hypoxia Is this a current diagnosis for this admission?: Yes Plan: Secondary to pneumonia Continue O2 supplementation (5) DVT prophylaxis Is this a current diagnosis for this admission?: Yes - Time Time Spent with patient: 25-34 minutes
[2017-10-14] MEDS ORDERED: AZITHROMYCIN 500 MG in DEXTROSE 5%-WATER 250 ML IV SCH (18:00)
[2017-10-14] MEDS ORDERED: POTASSIUM CHLORIDE 20 MEQ/15 ML UDCUP PO ONE (21:30)
[2017-10-14] MEDS ORDERED: CEFEPIME 2 GM/D5W RTU 2 GM/50 ML RTUPB IV SCH (22:00)
[2017-10-14] MEDS ORDERED: CEFTRIAXONE SODIUM 1,000 MG in DEXTROSE 5%-WATER 50 ML IV SCH (22:00)
[2017-10-14] MEDS: ANASTROZOLE 1 MG TABLET PO SCH (22:12)
[2017-10-14] MEDS: LOSARTAN POTASSIUM 50 MG TABLET PO SCH (22:12)
[2017-10-14] MEDS ORDERED: CEFEPIME 2 GM/D5W RTU 2 GM/50 ML RTUPB IV ONE (22:15)
[2017-10-15] MEDS: LEVALBUTEROL HCL NEB 1.25 MG/3 ML AMPUL NEB SCH ×4 (02:22→20:37)
[2017-10-15] MEDS: IPRATROPIUM BROMIDE 0.02% NEB 0.5 MG/2.5 ML AMPUL NEB SCH ×4 (02:22→20:37)
[2017-10-15] MEDS: BENZONATATE 100 MG CAPSULE PO PRN ×2 (04:01→17:22)
[2017-10-15] MEDS: GUAIFENESIN SYRP 200 MG/10 ML UDC PO PRN ×2 (04:01→20:17)
[2017-10-15] MEDS: HEPARIN SOD (PORCINE) 5,000 UNIT/ML 1 ML SYRINGE SUBCUT SCH ×3 (05:32→22:25)
[2017-10-15] MEDS: LANSOPRAZOLE 30 MG TAB.RAP.DR PO SCH (05:34)
[2017-10-15 06:21] LABS: ABSOLUTE EOSINOPHILS # (AUTO) 0.1 10^3/uL (0.0-0.6); ABSOLUTE LYMPHOCYTES (AUTO) 0.8 10^3/uL (0.5-4.7); ABSOLUTE MONOCYTES (AUTO) 0.9 10^3/uL (0.1-1.4); ABSOLUTE NEUT (AUTO) 6.3 10^3/uL (1.7-8.2); BASOPHILS % (AUTO) 0.1 % (0-2); EOSINOPHILS % (AUTO) 1.3 % (0-6); HEMOGLOBIN 9.2 g/dL (12.0-15.5); MEAN CORPUSCULAR HEMOGLOBIN 28.2 pg (27.0-33.4); MEAN CORPUSCULAR HGB CONC 32.7 g/dL (32.0-36.0); MEAN CORPUSCULAR VOLUME 86 fl (80-97); MONOCYTES % (AUTO) 11.3 % (3-13); PLATELET COUNT 297 10^3/uL (150-450); RED BLOOD COUNT 3.25 10^6/uL (3.72-5.28); RED CELL DISTRIBUTION WIDTH 16.1 % (11.5-14.0); SEGMENTED NEUTROPHILS % (AUTO) 77.3 % (42-78); TOTAL CELLS COUNTED % (AUTO) 100 %; WHITE BLOOD COUNT 8.2 10^3/uL (4.0-10.5)
[2017-10-15 06:48] LABS: ANION GAP 7 (5-19); BLOOD UREA NITROGEN 10 mg/dL (7-20); CALCIUM 8.8 mg/dL (8.4-10.2); CARBON DIOXIDE 24 mmol/L (22-30); CHLORIDE 108 mmol/L (98-107); GLUCOSE 109 mg/dL (75-110); SODIUM 139.4 mmol/L (137-145)
[2017-10-15] MEDS: MAGNESIUM OXIDE 400 MG TABLET PO SCH ×2 (10:47→17:22)
[2017-10-15] MEDS: LEVOFLOXACIN 750 MG/D5W RTU 750 MG/150 ML RTUPB IV SCH (10:47)
[2017-10-15] MEDS: GUAIFENESIN 600 MG TABLET.SA PO SCH ×2 (10:47→22:26)
[2017-10-15] MEDS: FUROSEMIDE 20 MG TABLET PO SCH (10:47)
[2017-10-15] MEDS: POTASSIUM CHLORIDE 20 MEQ/15 ML UDCUP PO SCH (10:47)
[2017-10-15] MEDS: CETIRIZINE 10 MG TABLET PO SCH (10:48)
[2017-10-15] MEDS: FLUTICASONE NASAL SPRAY 50 MCG/SPRY 120 SPRAY/16 GM NASL SCH ×2 (10:48→22:26)
[2017-10-15] MEDS: POLYETHYLENE GLYCOL 3350 POWDER 17 GM/1 PACKET PO SCH (10:50)
[2017-10-15] MEDS ORDERED: ONDANSETRON HCL INJ/PF 4 MG/2 ML SDV IV PRN ×2 (12:00→12:28)
[2017-10-15] MEDS: CEFEPIME HCL 2 GM in DEXTROSE 5%-WATER 50 ML IV SCH ×2 (12:31→22:25)
--- NOTE | 2017-10-15 16:23 | PDOC PROGRESS REPORT ---
Subjective Progress Note for:: 10/15/17 Subjective:: The patient is resting in her bed. Overall she states that she is feeling a little bit better. She has been weaned off of oxygen at this point. She is quite anxious that I let Dr. Pedroza that she is in the hospital. Apparently she was told that her CT scan of her chest was abnormal with some prominent lymph nodes. She is worried as she seems to be in remission from her cancer. She is requesting that I consult him so that he can look at the scan and advised. Otherwise she states that she is feeling better. She states that she gets nauseated when she receives the Levaquin. She is requesting some nausea medication. She has had no vomiting. No fever or chills. No chest pain or heart palpitations. Her cough and shortness of breath are improving. No abdominal pain. No dysuria, frequency or hematuria. Reason For Visit: PNEUMONIA Physical Exam Vital Signs: Temp Pulse Resp BP Pulse Ox 98.7 F 113 H 18 112/68 93 10/15/17 12:02 10/15/17 12:02 10/15/17 12:02 10/15/17 12:02 10/15/17 12:02 Intake & Output 10/14/17 10/15/17 10/16/17 06:59 06:59 06:59 Intake Total 1575 3612 Balance 1575 3612 Weight 85.2 kg 81.9 kg General appearance: PRESENT: no acute distress, well-developed, well-nourished Head exam: PRESENT: atraumatic, normocephalic Mouth exam: PRESENT: moist, tongue midline Respiratory exam: PRESENT: rhonchi Cardiovascular exam: PRESENT: RRR. ABSENT: diastolic murmur, rubs, systolic murmur GI/Abdominal exam: PRESENT: normal bowel sounds, soft. ABSENT: distended, guarding, mass, organolmegaly, rebound, tenderness Rectal exam: PRESENT: deferred Extremities exam: PRESENT: full ROM. ABSENT: calf tenderness, clubbing, pedal edema Neurological exam: PRESENT: alert, awake, oriented to person, oriented to place , oriented to time, oriented to situation, CN II-XII grossly intact. ABSENT: motor sensory deficit Psychiatric exam: PRESENT: appropriate affect, normal mood. ABSENT: homicidal ideation, suicidal ideation Skin exam: PRESENT: dry, intact, warm. ABSENT: cyanosis, rash Results Laboratory Results: 10/15/17 05:45 10/15/17 05:45 10/14/17 10/15/17 10/15/17 05:26 05:45 05:45 WBC 8.2 RBC 3.25 L Hgb 9.2 L Hct 28.0 L MCV 86 MCH 28.2 MCHC 32.7 RDW 16.1 H Plt Count 297 Seg Neutrophils % 77.3 Lymphocytes % 10.0 L Monocytes % 11.3 Eosinophils % 1.3 Basophils % 0.1 Absolute Neutrophils 6.3 Absolute Lymphocytes 0.8 Absolute Monocytes 0.9 Absolute Eosinophils 0.1 Absolute Basophils 0.0 Sodium 139.4 Potassium 4.0 Chloride 108 H Carbon Dioxide 24 Anion Gap 7 BUN 10 Creatinine 0.60 Est GFR ( Amer) > 60 Est GFR (Non-Af Amer) > 60 Glucose 109 Calcium 8.8 Magnesium 2.0 Impressions: Chest X-Ray 10/13/17 14:16 IMPRESSION: Patchy bilateral airspace densities right greater than left which appear more pronounced as compared to the previous study the appearance is most consistent with patchy pneumonic infiltrates. Other findings as noted above Chest/Abdomen CTA 10/13/17 15:39 IMPRESSION: NO PULMONARY EMBOLI. MULTIFOCAL AIRSPACE DISEASE SEEN ON CHEST RADIOGRAPH PRESUMABLY REPRESENTING PNEUMONIA. CORRELATE WITH FEVER AND ELEVATED WHITE BLOOD CELL COUNT. MEDIASTINAL AND RIGHT HILAR LYMPHADENOPATHY NEW COMPARED TO PRIOR STUDY PRESUMABLY REACTIVE TO PNEUMONIA HOWEVER NEOPLASM CANNOT BE EXCLUDED GIVEN HISTORY OF BREAST CANCER. CONSIDER FOLLOW-UP CT CHEST IN 3 MONTHS TO ENSURE RESOLUTION. SMALL RIGHT PLEURAL EFFUSION LIKELY REACTIVE. Assessment & Plan - Diagnosis (1) Acute respiratory failure with hypoxia Is this a current diagnosis for this admission?: Yes Plan: Secondary to multifocal pneumonia. Resolved. She has been weaned off of oxygen at this point and is doing quite well (2) Multifocal pneumonia Is this a current diagnosis for this admission?: Yes Plan: Concerns for community-acquired pathogen such as gram positives and atypicals. She has not been receiving any chemotherapy recently. She has been started on IV Levaquin. She will continue this for now and we will add Zofran for her nausea. (3) Breast cancer Is this a current diagnosis for this admission?: Yes Plan: Currently in remission. I will consult her oncologist at the patient's request. She likely will need a repeat CT scan in several weeks to document clearing. The changes noted are likely related to her underlying pneumonia but we will have Dr. Pedroza take a look at her scan while she is here. (4) Hypertension Qualifiers: Hypertension type: essential hypertension Qualified Code(s): I10 - Essential (primary) hypertension Is this a current diagnosis for this admission?: Yes Plan: Continue losartan (5) Anemia Is this a current diagnosis for this admission?: Yes Plan: This is an anemia of chronic disease likely related to her underlying malignancy. Her hemoglobin is stable. (6) Hypokalemia Is this a current diagnosis for this admission?: Yes Plan: Repleted and resolved - Time Time Spent with patient: 25-34 minutes - Inpatient Certification Medical Necessity: Other - Inpatient hospitalization remains necessary. The patient has multifocal pneumonia requiring parenteral antibiotics. She is improving. We will get her oncologist to take a look at her tomorrow. I suspect she may be stable for discharge in the next 24-48 hours as she has been weaned off of her oxygen at this point.
[2017-10-15] MEDS: LOSARTAN POTASSIUM 50 MG TABLET PO SCH (22:26)
[2017-10-15] MEDS: ANASTROZOLE 1 MG TABLET PO SCH (22:26)
[2017-10-16] MEDS: IPRATROPIUM BROMIDE 0.02% NEB 0.5 MG/2.5 ML AMPUL NEB SCH ×4 (02:24→20:05)
[2017-10-16] MEDS: LEVALBUTEROL HCL NEB 1.25 MG/3 ML AMPUL NEB SCH ×4 (02:24→20:05)
[2017-10-16 06:21] LABS: ABSOLUTE EOSINOPHILS # (AUTO) 0.1 10^3/uL (0.0-0.6); ABSOLUTE LYMPHOCYTES (AUTO) 0.7 10^3/uL (0.5-4.7); ABSOLUTE MONOCYTES (AUTO) 0.9 10^3/uL (0.1-1.4); ABSOLUTE NEUT (AUTO) 6.7 10^3/uL (1.7-8.2); BASOPHILS % (AUTO) 0.3 % (0-2); EOSINOPHILS % (AUTO) 1.1 % (0-6); HEMATOCRIT 27.4 % (36.0-47.0); HEMOGLOBIN 9.1 g/dL (12.0-15.5); LYMPHOCYTES % (AUTO) 8.7 % (13-45); MEAN CORPUSCULAR HEMOGLOBIN 28.4 pg (27.0-33.4); MEAN CORPUSCULAR HGB CONC 33.1 g/dL (32.0-36.0); MEAN CORPUSCULAR VOLUME 86 fl (80-97); MONOCYTES % (AUTO) 11.1 % (3-13); PLATELET COUNT 290 10^3/uL (150-450); SEGMENTED NEUTROPHILS % (AUTO) 78.8 % (42-78); TOTAL CELLS COUNTED % (AUTO) 100 %; WHITE BLOOD COUNT 8.5 10^3/uL (4.0-10.5)
[2017-10-16] MEDS: HEPARIN SOD (PORCINE) 5,000 UNIT/ML 1 ML SYRINGE SUBCUT SCH ×3 (06:39→22:22)
[2017-10-16] MEDS: LANSOPRAZOLE 30 MG TAB.RAP.DR PO SCH (06:39)
[2017-10-16 06:41] LABS: ANION GAP 6 (5-19); BLOOD UREA NITROGEN 10 mg/dL (7-20); CALCIUM 9.1 mg/dL (8.4-10.2); CARBON DIOXIDE 25 mmol/L (22-30); CHLORIDE 108 mmol/L (98-107); GLUCOSE 126 mg/dL (75-110); POTASSIUM 4.4 mmol/L (3.6-5.0); SODIUM 139.1 mmol/L (137-145)
[2017-10-16] MEDS: GUAIFENESIN SYRP 200 MG/10 ML UDC PO PRN ×4 (06:41→22:21)
--- NOTE | 2017-10-16 08:52 | PDOC CONSULTATION ---
Consultation Consult Date: 10/16/17 Attending physician:: ENIO RUELAS Consult reason:: Aspiration pneumonia, history of stage III breast cancer History of Present Illness Admission Date/PCP: 10/13/17 21:09 JOSIE KIM DO Patient complains of: Cough, shortness of breath, pneumonia History of Present Illness: 57-year-old female with admission for aspiration pneumonia, she originally remembers eating something and then actually coughing about 6 weeks ago, about 8 days after having that aspiration episode she began having severe cough congestion shortness of breath, initially went to her PCP and was treated with 2 courses of Levaquin, she called her office as well and we gave her a course of Augmentin. Unfortunately, she worsened and she presented to the ED. Upon presentation she had CT of the chest that indicated consolidation in the right upper lobe consistent with an aspiration type pattern, also right hilar adenopathy and small right pleural effusion. She does have history of stage III breast cancer, initially treated with adjuvant chemotherapy, had a chest wall recurrence and we treated again with adjuvant chemotherapy earlier last year. Of note we fully staged her when she had a recurrence in the chest wall in December of last year and there is no evidence of distant disease. Past Medical History Cardiac Medical History: Reports: Hypertension Denies: Coronary Artery Disease, Myocardial Infarction Pulmonary Medical History: Denies: Asthma, Bronchitis, Chronic Obstructive Pulmonary Disease (COPD), Pneumonia Neurological Medical History: Denies: Seizures Malignancy Medical History: Reports: Breast Cancer - Treated with chemotherapy. Current remission. Double mastectomy. Musculoskeltal Medical History: Denies: Arthritis Psychiatric Medical History: Reports: Depression Hematology: Reports: Anemia - hx of Past Surgical History Past Surgical History: Reports: Hysterectomy, Other - Bilateral mastectomy Social History Information Source: Patient Lives with: Family Smoking Status: Former Smoker Last Time Smoked: 5 years Frequency of Alcohol Use: None Hx Recreational Drug Use: No Drugs: None Hx Prescription Drug Abuse: No - Advance Directive Resuscitation Status: Full Code Family History Family History: Hypertension Parental Family History Reviewed: Yes Children Family History Reviewed: Yes Sibling(s) Family History Reviewed.: Yes Medication/Allergy Home Medications: Albuterol Sulfate [Albuterol Sulfate 2.5mg/3 mL] 1 vial IH Q8HP PRN 10/13/17 Amox Tr/Potassium Clavulanate [Augmentin 875-125 mg Tablet] 1 tab PO DAILY 10/13 Anastrozole [Arimidex 1 mg Tablet] 1 mg PO QPM 10/13/17 Benzonatate [Tessalon Perles 100 mg Capsule] 200 mg PO Q8HP PRN 10/13/17 Cetirizine HCl [Zyrtec 10 mg Tablet] 10 mg PO DAILY 10/13/17 Furosemide [Lasix 20 mg Tablet] 20 mg PO DAILY 10/13/17 Ibuprofen [Motrin 800 mg Tablet] 800 mg PO Q3HWA 10/13/17 Losartan/Hydrochlorothiazide [Losartan-Hctz 50-12.5 mg Tab] 1 each PO QPM Allergies/Adverse Reactions: No Known Allergies Allergy (Verified 09/24/17 08:11) Review of Systems Constitutional: PRESENT: anorexia, chills, fatigue, fever(s), weakness Cardiovascular: PRESENT: dyspnea on exertion Respiratory: PRESENT: cough, sputum Gastrointestinal: ABSENT: abdominal pain, constipation, diarrhea, hematemesis, hematochezia, nausea, vomiting Integumentary: PRESENT: diaphoresis Neurological: ABSENT: abnormal gait, abnormal speech, confusion, dizziness, focal weakness, syncope Endocrine: ABSENT: cold intolerance, heat intolerance, polydipsia, polyuria Physical Exam Vital Signs: Temp Pulse Resp BP Pulse Ox 98.4 F 109 H 20 139/90 H 92 10/16/17 08:00 10/16/17 08:00 10/16/17 08:00 10/16/17 08:00 10/16/17 08:00 Intake & Output 10/15/17 10/16/17 10/17/17 06:59 06:59 06:59 Intake Total 3612 2716 Balance 3612 2716 Weight 81.9 kg 81.8 kg General appearance: PRESENT: no acute distress, well-developed, well-nourished Head exam: PRESENT: atraumatic, normocephalic Eye exam: PRESENT: conjunctiva pink, EOMI, PERRLA. ABSENT: scleral icterus Ear exam: PRESENT: normal external ear exam Mouth exam: PRESENT: moist, tongue midline Neck exam: ABSENT: carotid bruit, JVD, lymphadenopathy, thyromegaly Respiratory exam: PRESENT: crackles, rhonchi, tachypnea Cardiovascular exam: PRESENT: tachycardia Pulses: PRESENT: normal dorsalis pedis pul Vascular exam: PRESENT: normal capillary refill GI/Abdominal exam: PRESENT: normal bowel sounds, soft. ABSENT: distended, guarding, mass, organolmegaly, rebound, tenderness Rectal exam: PRESENT: deferred Extremities exam: PRESENT: full ROM. ABSENT: calf tenderness, clubbing, pedal edema Neurological exam: PRESENT: alert, awake, oriented to person, oriented to place , oriented to time, oriented to situation, CN II-XII grossly intact. ABSENT: motor sensory deficit Psychiatric exam: PRESENT: appropriate affect, normal mood. ABSENT: homicidal ideation, suicidal ideation Skin exam: PRESENT: dry, intact, warm. ABSENT: cyanosis, rash Results Laboratory Results: 10/16/17 05:54 10/16/17 05:54 10/16/17 10/16/17 05:54 05:54 WBC 8.5 RBC 3.20 L Hgb 9.1 L Hct 27.4 L MCV 86 MCH 28.4 MCHC 33.1 RDW 16.0 H Plt Count 290 Seg Neutrophils % 78.8 H Lymphocytes % 8.7 L Monocytes % 11.1 Eosinophils % 1.1 Basophils % 0.3 Absolute Neutrophils 6.7 Absolute Lymphocytes 0.7 Absolute Monocytes 0.9 Absolute Eosinophils 0.1 Absolute Basophils 0.0 Sodium 139.1 Potassium 4.4 Chloride 108 H Carbon Dioxide 25 Anion Gap 6 BUN 10 Creatinine 0.61 Est GFR ( Amer) > 60 Est GFR (Non-Af Amer) > 60 Glucose 126 H Calcium 9.1 Magnesium 1.8 Impressions: Chest X-Ray 10/13/17 14:16 IMPRESSION: Patchy bilateral airspace densities right greater than left which appear more pronounced as compared to the previous study the appearance is most consistent with patchy pneumonic infiltrates. Other findings as noted above Chest/Abdomen CTA 10/13/17 15:39 IMPRESSION: NO PULMONARY EMBOLI. MULTIFOCAL AIRSPACE DISEASE SEEN ON CHEST RADIOGRAPH PRESUMABLY REPRESENTING PNEUMONIA. CORRELATE WITH FEVER AND ELEVATED WHITE BLOOD CELL COUNT. MEDIASTINAL AND RIGHT HILAR LYMPHADENOPATHY NEW COMPARED TO PRIOR STUDY PRESUMABLY REACTIVE TO PNEUMONIA HOWEVER NEOPLASM CANNOT BE EXCLUDED GIVEN HISTORY OF BREAST CANCER. CONSIDER FOLLOW-UP CT CHEST IN 3 MONTHS TO ENSURE RESOLUTION. SMALL RIGHT PLEURAL EFFUSION LIKELY REACTIVE. Status: Image reviewed by me Assessment & Plan - Diagnosis (1) Hilar adenopathy Is this a current diagnosis for this admission?: Yes Plan: Patient with hilar adenopathy and mediastinal adenopathy, but this is likely reactive to the infectious process, I reviewed the images and do not believe that this is a breast cancer recurrence. I discussed that with the patient and reassured her, we will however need to repeat CT in 3 months. (3) Aspiration pneumonia due to food (regurgitated) Qualifiers: Laterality: right Lung location: upper lobe of lung Qualified Code(s): J69.0 - Pneumonitis due to inhalation of food and vomit Is this a current diagnosis for this admission?: Yes Plan: Aspiration pneumonia, treat with continued broad-spectrum antibiotics for the next 24-48 hours as we wait for cultures, she will need strong anaerobic coverage continued however. We did treat her with both Levaquin as well as Augmentin so she did have some anaerobic coverage with the Augmentin. Continue per hospitalist team. - Time Time Spent: Greater than 70 Minutes - Inpatient Certification Based on my medical assessment, after consideration of the patient's comorbidities, presenting symptoms, or acuity I expect that the services needed warrant INPATIENT care.: Yes I certify that my determination is in accordance with my understanding of Medicare's requirements for reasonable and necessary INPATIENT services [42 CFR 412.3e].: Yes Medical Necessity: Need For Continuous Telemetry Monitoring, Need for IV Antibiotics
[2017-10-16] MEDS: MAGNESIUM OXIDE 400 MG TABLET PO SCH ×2 (09:55→17:38)
[2017-10-16] MEDS: FUROSEMIDE 20 MG TABLET PO SCH (09:55)
[2017-10-16] MEDS: GUAIFENESIN 600 MG TABLET.SA PO SCH ×2 (09:55→22:21)
[2017-10-16] MEDS: CEFEPIME HCL 2 GM in DEXTROSE 5%-WATER 50 ML IV SCH (09:56)
[2017-10-16] MEDS: CETIRIZINE 10 MG TABLET PO SCH (09:56)
[2017-10-16] MEDS: POTASSIUM CHLORIDE 20 MEQ/15 ML UDCUP PO SCH (09:56)
[2017-10-16] MEDS: POLYETHYLENE GLYCOL 3350 POWDER 17 GM/1 PACKET PO SCH (09:59)
[2017-10-16] MEDS: FLUTICASONE NASAL SPRAY 50 MCG/SPRY 120 SPRAY/16 GM NASL SCH ×2 (09:59→22:22)
[2017-10-16] MEDS: LEVOFLOXACIN 750 MG/D5W RTU 750 MG/150 ML RTUPB IV SCH (11:15)
--- NOTE | 2017-10-16 11:57 | PDOC PROGRESS REPORT ---
Subjective Progress Note for:: 10/16/17 Subjective:: The patient is an extremely pleasant 57-year-old -[place] female with a past medical history significant for recurrent breast cancer, currently in remission. She follows with . the patient was admitted to the emergency room with increased shortness of breath and cough and was found to have pneumonia. Yovany. She was placed on broad-spectrum antibiotics with IV cefepime and Levaquin. She was seen by oncology this morning who stated that she had been treated as an outpatient for this with Levaquin and Augmentin after having an aspiration event at home. Overnight the patient spiked a fever. This morning she is still requiring oxygen and continues to have a cough. She states that she is feeling better than when she came into the hospital but still feels quite poorly. Dr Pedroza has reassured her that he does not think that her abnormal chest CT is a recurrence of her cancer. He will repeat her CT scan in 3 months to document clearing but he thinks that this is all related to her pneumonia. The patient is tolerating her diet does not have much of an appetite. She denies fever at the time of my visit. She continues to have nausea anytime she gets the Levaquin. It is adequately controlled with Zofran. She has had no episodes of vomiting. She states she has some abdominal pain when she takes the Levaquin as well. She is not having diarrhea. She has no voiding complaints. Reason For Visit: PNEUMONIA Physical Exam Vital Signs: Temp Pulse Resp BP Pulse Ox 98.4 F 109 H 20 139/90 H 92 10/16/17 08:00 10/16/17 08:00 10/16/17 08:00 10/16/17 08:00 10/16/17 08:00 Intake & Output 10/15/17 10/16/17 10/17/17 06:59 06:59 06:59 Intake Total 3612 2716 Balance 3612 2716 Weight 81.9 kg 81.8 kg General appearance: PRESENT: no acute distress, well-developed, well-nourished Head exam: PRESENT: atraumatic, normocephalic Mouth exam: PRESENT: moist, tongue midline Respiratory exam: PRESENT: rhonchi Cardiovascular exam: PRESENT: RRR. ABSENT: diastolic murmur, rubs, systolic murmur GI/Abdominal exam: PRESENT: normal bowel sounds, soft. ABSENT: distended, guarding, mass, organolmegaly, rebound, tenderness Rectal exam: PRESENT: deferred Extremities exam: PRESENT: full ROM. ABSENT: calf tenderness, clubbing, pedal edema Neurological exam: PRESENT: alert, awake, oriented to person, oriented to place , oriented to time, oriented to situation, CN II-XII grossly intact. ABSENT: motor sensory deficit Psychiatric exam: PRESENT: appropriate affect, normal mood. ABSENT: homicidal ideation, suicidal ideation Skin exam: PRESENT: dry, intact, warm. ABSENT: cyanosis, rash Results Laboratory Results: 10/16/17 05:54 10/16/17 05:54 10/16/17 10/16/17 05:54 05:54 WBC 8.5 RBC 3.20 L Hgb 9.1 L Hct 27.4 L MCV 86 MCH 28.4 MCHC 33.1 RDW 16.0 H Plt Count 290 Seg Neutrophils % 78.8 H Lymphocytes % 8.7 L Monocytes % 11.1 Eosinophils % 1.1 Basophils % 0.3 Absolute Neutrophils 6.7 Absolute Lymphocytes 0.7 Absolute Monocytes 0.9 Absolute Eosinophils 0.1 Absolute Basophils 0.0 Sodium 139.1 Potassium 4.4 Chloride 108 H Carbon Dioxide 25 Anion Gap 6 BUN 10 Creatinine 0.61 Est GFR ( Amer) > 60 Est GFR (Non-Af Amer) > 60 Glucose 126 H Calcium 9.1 Magnesium 1.8 Impressions: Chest X-Ray 10/13/17 14:16 IMPRESSION: Patchy bilateral airspace densities right greater than left which appear more pronounced as compared to the previous study the appearance is most consistent with patchy pneumonic infiltrates. Other findings as noted above Chest/Abdomen CTA 10/13/17 15:39 IMPRESSION: NO PULMONARY EMBOLI. MULTIFOCAL AIRSPACE DISEASE SEEN ON CHEST RADIOGRAPH PRESUMABLY REPRESENTING PNEUMONIA. CORRELATE WITH FEVER AND ELEVATED WHITE BLOOD CELL COUNT. MEDIASTINAL AND RIGHT HILAR LYMPHADENOPATHY NEW COMPARED TO PRIOR STUDY PRESUMABLY REACTIVE TO PNEUMONIA HOWEVER NEOPLASM CANNOT BE EXCLUDED GIVEN HISTORY OF BREAST CANCER. CONSIDER FOLLOW-UP CT CHEST IN 3 MONTHS TO ENSURE RESOLUTION. SMALL RIGHT PLEURAL EFFUSION LIKELY REACTIVE. Assessment & Plan - Diagnosis (1) Acute respiratory failure with hypoxia Is this a current diagnosis for this admission?: Yes Plan: The patient continues to require oxygen this morning. She also is febrile. I am going to change her antibiotic coverage. Treatment will be outlined below (2) Multifocal pneumonia Is this a current diagnosis for this admission?: Yes Plan: Initially it was documented that the concerns for for community-acquired pathogens such as gram positives for atypicals although gram negatives cannot be ruled out. Dr. Pedroza was able to provide further history that she had had an aspiration event and that this is likely an aspiration pneumonia that will require strong anaerobic coverage. I am going to change the patient's antibiotics today as she is now febrile which is a new problem. I am going to stop her IV cefepime and Levaquin and place the patient on IV meropenem today. Hopefully she will tolerate this better than the Levaquin in regards to the nausea. This will be the first day of treatment with IV meropenem. (3) Breast cancer Is this a current diagnosis for this admission?: Yes Plan: Oncology is seen the patient today. She will require repeat CT scan in 3 months as she did have hilar and mediastinal adenopathy noted on the scan. He feels as if this is reactive to her severe pneumonia. (4) Hilar adenopathy Is this a current diagnosis for this admission?: Yes Plan: With mediastinal adenopathy as well. Oncology does not believe this is related to her underlying malignancy. Plan as above (5) Hypertension Qualifiers: Hypertension type: essential hypertension Qualified Code(s): I10 - Essential (primary) hypertension Is this a current diagnosis for this admission?: Yes Plan: Continue losartan (6) Anemia Is this a current diagnosis for this admission?: Yes Plan: This is an anemia of chronic disease likely related to her underlying malignancy. Her hemoglobin is stable. (7) Hypokalemia Is this a current diagnosis for this admission?: Yes Plan: Repleted and resolved - Time Time Spent with patient: 25-34 minutes - Inpatient Certification Medical Necessity: Other - Inpatient hospitalization remains necessary. The patient continues to be hypoxic requiring oxygen and now has developed a new fever. I am going to have to broaden her antibiotic coverage today. She is requiring parenteral therapies here in the hospital and has failed outpatient treatment with both Levaquin and Augmentin. Clearly further hospitalization is necessary.
[2017-10-16] MEDS: MEROPENEM 1 GM in NORMAL SALINE 50 ML IV SCH ×2 (15:15→22:20)
[2017-10-16] MEDS: BENZONATATE 100 MG CAPSULE PO PRN (19:52)
[2017-10-16] MEDS: ANASTROZOLE 1 MG TABLET PO SCH (22:20)
[2017-10-16] MEDS: LOSARTAN POTASSIUM 50 MG TABLET PO SCH (22:28)
[2017-10-17] MEDS: LORAZEPAM 0.5 MG TABLET PO PRN (00:24)
[2017-10-17] MEDS: IPRATROPIUM BROMIDE 0.02% NEB 0.5 MG/2.5 ML AMPUL NEB SCH ×3 (02:03→13:44)
[2017-10-17] MEDS: LEVALBUTEROL HCL NEB 1.25 MG/3 ML AMPUL NEB SCH ×3 (02:03→13:44)
[2017-10-17] MEDS: GUAIFENESIN SYRP 200 MG/10 ML UDC PO PRN (05:47)
[2017-10-17] MEDS: LANSOPRAZOLE 30 MG TAB.RAP.DR PO SCH (05:48)
[2017-10-17] MEDS: MEROPENEM 1 GM in NORMAL SALINE 50 ML IV SCH (05:48)
[2017-10-17] MEDS: HEPARIN SOD (PORCINE) 5,000 UNIT/ML 1 ML SYRINGE SUBCUT SCH ×3 (05:48→23:05)
[2017-10-17 06:03] LABS: ABSOLUTE EOSINOPHILS # (AUTO) 0.1 10^3/uL (0.0-0.6); ABSOLUTE LYMPHOCYTES (AUTO) 0.8 10^3/uL (0.5-4.7); ABSOLUTE MONOCYTES (AUTO) 0.9 10^3/uL (0.1-1.4); ABSOLUTE NEUT (AUTO) 7.6 10^3/uL (1.7-8.2); BASOPHILS % (AUTO) 0.3 % (0-2); EOSINOPHILS % (AUTO) 0.9 % (0-6); HEMATOCRIT 27.8 % (36.0-47.0); HEMOGLOBIN 9.2 g/dL (12.0-15.5); LYMPHOCYTES % (AUTO) 8.1 % (13-45); MEAN CORPUSCULAR HEMOGLOBIN 28.5 pg (27.0-33.4); MEAN CORPUSCULAR HGB CONC 32.9 g/dL (32.0-36.0); MEAN CORPUSCULAR VOLUME 87 fl (80-97); MONOCYTES % (AUTO) 9.5 % (3-13); PLATELET COUNT 281 10^3/uL (150-450); RED BLOOD COUNT 3.21 10^6/uL (3.72-5.28); RED CELL DISTRIBUTION WIDTH 15.9 % (11.5-14.0); SEGMENTED NEUTROPHILS % (AUTO) 81.2 % (42-78); TOTAL CELLS COUNTED % (AUTO) 100 %; WHITE BLOOD COUNT 9.3 10^3/uL (4.0-10.5)
[2017-10-17 06:24] LABS: ALANINE AMINOTRANSFERASE 39 U/L (9-52); ALBUMIN 2.7 g/dL (3.5-5.0); ALKALINE PHOSPHATASE 77 U/L (38-126); ANION GAP 8 (5-19); ASPARTATE AMINO TRANSFERASE 26 U/L (14-36); BILIRUBIN,DIRECT 0.2 mg/dL (0.0-0.4); BILIRUBIN,TOTAL 0.3 mg/dL (0.2-1.3); BLOOD UREA NITROGEN 9 mg/dL (7-20); CALCIUM 8.9 mg/dL (8.4-10.2); CARBON DIOXIDE 22 mmol/L (22-30); CHLORIDE 107 mmol/L (98-107); GLUCOSE 103 mg/dL (75-110); POTASSIUM 4.7 mmol/L (3.6-5.0); SODIUM 136.5 mmol/L (137-145); TOTAL PROTEIN 5.5 g/dL (6.3-8.2)
[2017-10-17] MEDS: FUROSEMIDE 20 MG TABLET PO SCH (10:40)
[2017-10-17] MEDS: MAGNESIUM OXIDE 400 MG TABLET PO SCH ×2 (10:40→18:10)
[2017-10-17] MEDS: CETIRIZINE 10 MG TABLET PO SCH (10:41)
[2017-10-17] MEDS: FLUTICASONE NASAL SPRAY 50 MCG/SPRY 120 SPRAY/16 GM NASL SCH ×2 (10:41→22:59)
[2017-10-17] MEDS: GUAIFENESIN 600 MG TABLET.SA PO SCH ×2 (10:41→22:56)
[2017-10-17] MEDS: POLYETHYLENE GLYCOL 3350 POWDER 17 GM/1 PACKET PO SCH (10:42)
[2017-10-17] MEDS: POTASSIUM CHLORIDE 20 MEQ/15 ML UDCUP PO SCH (10:42)
[2017-10-17] MEDS: HYDROCODONE BIT/HOMATROPINE 5-1.5 MG TABLET PO PRN ×2 (14:19→20:25)
[2017-10-17] MEDS: ACETAMINOPHEN 325 MG TABLET PO PRN ×2 (14:21→23:09)
--- NOTE | 2017-10-17 16:31 | PDOC PROGRESS REPORT ---
Subjective Progress Note for:: 10/17/17 Subjective:: Relates that is better but is having cough which is worse at night Review of systems All organ systems evaluated and negative except as in subjective All significant laboratories and diagnostics have been reviewed Reason For Visit: PNEUMONIA Physical Exam Vital Signs: Temp Pulse Resp BP Pulse Ox 99.0 F 117 H 19 101/48 L 91 L 10/16/17 19:45 10/17/17 02:04 10/17/17 02:04 10/16/17 19:45 10/17/17 02:04 Intake & Output 10/16/17 10/17/17 10/18/17 06:59 06:59 06:59 Intake Total 2716 1220 Output Total 400 Balance 2716 820 Weight 81.8 kg 85.8 kg General appearance: PRESENT: no acute distress, cooperative, well-developed, well-nourished Head exam: PRESENT: atraumatic, normocephalic Eye exam: PRESENT: conjunctiva pink, EOMI, PERRLA Ear exam: PRESENT: normal external ear exam Mouth exam: PRESENT: moist, neck supple Neck exam: PRESENT: full ROM. ABSENT: JVD, lymphadenopathy, tenderness Respiratory exam: PRESENT: clear to auscultation laurence Cardiovascular exam: PRESENT: RRR. ABSENT: diastolic murmur, systolic murmur Vascular exam: PRESENT: normal capillary refill GI/Abdominal exam: PRESENT: normal bowel sounds, soft. ABSENT: tenderness Extremities exam: PRESENT: full ROM, joint swelling, pedal edema Musculoskeletal exam: PRESENT: ambulatory Neurological exam: PRESENT: alert, awake, oriented to person, oriented to place , oriented to time, oriented to situation, CN II-XII grossly intact Psychiatric exam: PRESENT: appropriate affect, normal mood Skin exam: PRESENT: intact, normal color Results Laboratory Results: 10/17/17 05:40 10/17/17 05:40 10/17/17 10/17/17 05:40 05:40 WBC 9.3 RBC 3.21 L Hgb 9.2 L Hct 27.8 L MCV 87 MCH 28.5 MCHC 32.9 RDW 15.9 H Plt Count 281 Seg Neutrophils % 81.2 H Lymphocytes % 8.1 L Monocytes % 9.5 Eosinophils % 0.9 Basophils % 0.3 Absolute Neutrophils 7.6 Absolute Lymphocytes 0.8 Absolute Monocytes 0.9 Absolute Eosinophils 0.1 Absolute Basophils 0.0 Sodium 136.5 L Potassium 4.7 Chloride 107 Carbon Dioxide 22 Anion Gap 8 BUN 9 Creatinine 0.59 Est GFR ( Amer) > 60 Est GFR (Non-Af Amer) > 60 Glucose 103 Calcium 8.9 Magnesium 1.8 Total Bilirubin 0.3 AST 26 ALT 39 Alkaline Phosphatase 77 Total Protein 5.5 L Albumin 2.7 L Impressions: Chest X-Ray 10/13/17 14:16 IMPRESSION: Patchy bilateral airspace densities right greater than left which appear more pronounced as compared to the previous study the appearance is most consistent with patchy pneumonic infiltrates. Other findings as noted above Chest/Abdomen CTA 10/13/17 15:39 IMPRESSION: NO PULMONARY EMBOLI. MULTIFOCAL AIRSPACE DISEASE SEEN ON CHEST RADIOGRAPH PRESUMABLY REPRESENTING PNEUMONIA. CORRELATE WITH FEVER AND ELEVATED WHITE BLOOD CELL COUNT. MEDIASTINAL AND RIGHT HILAR LYMPHADENOPATHY NEW COMPARED TO PRIOR STUDY PRESUMABLY REACTIVE TO PNEUMONIA HOWEVER NEOPLASM CANNOT BE EXCLUDED GIVEN HISTORY OF BREAST CANCER. CONSIDER FOLLOW-UP CT CHEST IN 3 MONTHS TO ENSURE RESOLUTION. SMALL RIGHT PLEURAL EFFUSION LIKELY REACTIVE. Assessment & Plan - Diagnosis (1) Acute respiratory failure with hypoxia Is this a current diagnosis for this admission?: Yes Plan: Will wean off oxygen as tolerated (2) Anemia Qualifiers: Anemia type: unspecified type Qualified Code(s): D64.9 - Anemia, unspecified Is this a current diagnosis for this admission?: Yes Plan: Likely due to chronic disease. Stable (3) Aspiration pneumonia Qualifiers: Aspiration pneumonia type: due to vomit Laterality: bilateral Lung location: unspecified part of lung Qualified Code(s): J69.0 - Pneumonitis due to inhalation of food and vomit Is this a current diagnosis for this admission?: Yes Plan: To place on clindamycin and Levaquin in anticipation to discharge and add cough suppressant medication (4) Hilar adenopathy Is this a current diagnosis for this admission?: Yes Plan: Likely due to infectious process. Will be followed by oncology - Time Time Spent with patient: 15-24 minutes Anticipated discharge: Home Within: within 24 hours - Inpatient Certification Based on my medical assessment, after consideration of the patient's comorbidities, presenting symptoms, or acuity I expect that the services needed warrant INPATIENT care.: Yes I certify that my determination is in accordance with my understanding of Medicare's requirements for reasonable and necessary INPATIENT services [42 CFR 412.3e].: Yes Medical Necessity: Significant Comorbidiites Make Outpatient Treatment Too Risky
[2017-10-17] MEDS: LEVOFLOXACIN 750 MG TABLET PO SCH (18:12)
[2017-10-17] MEDS ORDERED: ONDANSETRON 4 MG TAB.RAPDIS PO PRN (18:36)
[2017-10-17] MEDS: PROMETHAZINE HCL 25 MG TABLET PO PRN (19:03)
[2017-10-17] MEDS ORDERED: AMOXICILLIN TR/POT CLAVULANATE 500-125 MG TAB PO SCH (22:00)
[2017-10-17] MEDS: CLINDAMYCIN HCL 150 MG CAPSULE PO SCH (22:56)
[2017-10-17] MEDS: LOSARTAN POTASSIUM 50 MG TABLET PO SCH (22:57)
[2017-10-17] MEDS: ANASTROZOLE 1 MG TABLET PO SCH (23:04)
[2017-10-17] MEDS: BENZONATATE 100 MG CAPSULE PO PRN (23:08)
[2017-10-18] MEDS: LANSOPRAZOLE 30 MG TAB.RAP.DR PO SCH (05:59)
[2017-10-18] MEDS: CLINDAMYCIN HCL 150 MG CAPSULE PO SCH ×3 (05:59→21:29)
[2017-10-18] MEDS: HEPARIN SOD (PORCINE) 5,000 UNIT/ML 1 ML SYRINGE SUBCUT SCH ×3 (05:59→21:36)
[2017-10-18] MEDS: HYDROCODONE BIT/HOMATROPINE 5-1.5 MG TABLET PO PRN ×3 (06:03→16:36)
[2017-10-18] MEDS: BENZONATATE 100 MG CAPSULE PO PRN (09:24)
[2017-10-18] MEDS: MAGNESIUM OXIDE 400 MG TABLET PO SCH ×2 (09:24→17:56)
[2017-10-18] MEDS: GUAIFENESIN 600 MG TABLET.SA PO SCH ×2 (09:24→21:29)
[2017-10-18] MEDS: POLYETHYLENE GLYCOL 3350 POWDER 17 GM/1 PACKET PO SCH ×2 (09:24→10:20)
[2017-10-18] MEDS: CETIRIZINE 10 MG TABLET PO SCH (09:25)
[2017-10-18] MEDS: FLUTICASONE NASAL SPRAY 50 MCG/SPRY 120 SPRAY/16 GM NASL SCH ×2 (09:27→21:32)
[2017-10-18] MEDS: FUROSEMIDE 20 MG TABLET PO SCH (14:15)
[2017-10-18] MEDS: LACTULOSE SYRUP 20 GM/30 ML UDCUP PO SCH (14:19)
--- NOTE | 2017-10-18 15:35 | PDOC PROGRESS REPORT ---
Subjective Progress Note for:: 10/18/17 Subjective:: Patient states that cough improved with medication given. Nurse reports that patient's oxygen had to be restarted since it dropped down to the upper 80s during the night Review of systems All organ systems evaluated and negative except as in subjective All significant laboratories and diagnostics have been reviewed Reason For Visit: PNEUMONIA Physical Exam Vital Signs: Temp Pulse Resp BP Pulse Ox 98.4 F 110 H 18 86/62 L 94 10/18/17 07:52 10/18/17 07:52 10/18/17 07:52 10/18/17 07:52 10/18/17 07:52 Intake & Output 10/17/17 10/18/17 10/19/17 06:59 06:59 06:59 Intake Total 1220 960 Output Total 400 400 Balance 820 560 Weight 85.8 kg 84.6 kg General appearance: PRESENT: no acute distress, cooperative, well-developed, well-nourished Head exam: PRESENT: atraumatic, normocephalic Eye exam: PRESENT: conjunctiva pink, EOMI Ear exam: PRESENT: normal external ear exam, TM's normal bilaterally Mouth exam: PRESENT: moist, neck supple Neck exam: PRESENT: JVD, thyromegaly. ABSENT: full ROM, tenderness Respiratory exam: PRESENT: clear to auscultation laurence Cardiovascular exam: PRESENT: RRR. ABSENT: diastolic murmur, systolic murmur Vascular exam: PRESENT: normal capillary refill GI/Abdominal exam: PRESENT: soft. ABSENT: tenderness Extremities exam: PRESENT: full ROM. ABSENT: clubbing, joint swelling, pedal edema Musculoskeletal exam: PRESENT: ambulatory Neurological exam: PRESENT: alert, oriented to person, oriented to place, oriented to time, oriented to situation, CN II-XII grossly intact Psychiatric exam: PRESENT: appropriate affect, normal mood Skin exam: PRESENT: intact, normal color Results Laboratory Results: 10/17/17 05:40 10/17/17 05:40 Impressions: Chest X-Ray 10/13/17 14:16 IMPRESSION: Patchy bilateral airspace densities right greater than left which appear more pronounced as compared to the previous study the appearance is most consistent with patchy pneumonic infiltrates. Other findings as noted above Chest/Abdomen CTA 10/13/17 15:39 IMPRESSION: NO PULMONARY EMBOLI. MULTIFOCAL AIRSPACE DISEASE SEEN ON CHEST RADIOGRAPH PRESUMABLY REPRESENTING PNEUMONIA. CORRELATE WITH FEVER AND ELEVATED WHITE BLOOD CELL COUNT. MEDIASTINAL AND RIGHT HILAR LYMPHADENOPATHY NEW COMPARED TO PRIOR STUDY PRESUMABLY REACTIVE TO PNEUMONIA HOWEVER NEOPLASM CANNOT BE EXCLUDED GIVEN HISTORY OF BREAST CANCER. CONSIDER FOLLOW-UP CT CHEST IN 3 MONTHS TO ENSURE RESOLUTION. SMALL RIGHT PLEURAL EFFUSION LIKELY REACTIVE. Assessment & Plan - Diagnosis (1) Acute respiratory failure with hypoxia Is this a current diagnosis for this admission?: Yes Plan: Will wean off oxygen as tolerated. Persisting (2) Anemia Qualifiers: Anemia type: unspecified type Qualified Code(s): D64.9 - Anemia, unspecified Is this a current diagnosis for this admission?: Yes Plan: Likely due to chronic disease. Stable (3) Aspiration pneumonia Qualifiers: Aspiration pneumonia type: due to vomit Laterality: bilateral Lung location: unspecified part of lung Qualified Code(s): J69.0 - Pneumonitis due to inhalation of food and vomit Is this a current diagnosis for this admission?: Yes Plan: Continue clindamycin and Levaquin until company with antiemetic. (4) Hilar adenopathy Is this a current diagnosis for this admission?: Yes Plan: Likely due to infectious process. Will be followed by oncology - Time Time Spent with patient: 15-24 minutes Medications reviewed and adjusted accordingly: Yes Anticipated discharge: Home Within: within 48 hours - Inpatient Certification Based on my medical assessment, after consideration of the patient's comorbidities, presenting symptoms, or acuity I expect that the services needed warrant INPATIENT care.: Yes I certify that my determination is in accordance with my understanding of Medicare's requirements for reasonable and necessary INPATIENT services [42 CFR 412.3e].: Yes Medical Necessity: Need Close Monitoring Due to Risk of Patient Decompensation
[2017-10-18] MEDS: ACETAMINOPHEN 325 MG TABLET PO PRN ×2 (16:38→21:30)
[2017-10-18] MEDS: PROMETHAZINE HCL 25 MG TABLET PO PRN (17:56)
[2017-10-18] MEDS: LEVOFLOXACIN 750 MG TABLET PO SCH (17:56)
[2017-10-18] MEDS: LOSARTAN POTASSIUM 50 MG TABLET PO SCH (21:30)
[2017-10-18] MEDS: ANASTROZOLE 1 MG TABLET PO SCH (21:31)
[2017-10-19] MEDS: LANSOPRAZOLE 30 MG TAB.RAP.DR PO SCH (06:45)
[2017-10-19] MEDS: CLINDAMYCIN HCL 150 MG CAPSULE PO SCH ×3 (06:45→21:55)
[2017-10-19] MEDS: BENZONATATE 100 MG CAPSULE PO PRN ×2 (06:48→17:25)
[2017-10-19] MEDS: ACETAMINOPHEN 325 MG TABLET PO PRN ×2 (06:48→17:26)
[2017-10-19] MEDS: HEPARIN SOD (PORCINE) 5,000 UNIT/ML 1 ML SYRINGE SUBCUT SCH ×3 (06:49→22:02)
[2017-10-19] MEDS: LACTULOSE SYRUP 20 GM/30 ML UDCUP PO SCH ×3 (06:54→17:24)
[2017-10-19] MEDS: POLYETHYLENE GLYCOL 3350 POWDER 17 GM/1 PACKET PO SCH ×3 (06:54→17:24)
[2017-10-19] MEDS: FLUTICASONE NASAL SPRAY 50 MCG/SPRY 120 SPRAY/16 GM NASL SCH ×2 (09:24→21:55)
[2017-10-19] MEDS: GUAIFENESIN 600 MG TABLET.SA PO SCH ×2 (09:24→21:58)
[2017-10-19] MEDS: FUROSEMIDE 20 MG TABLET PO SCH (09:25)
[2017-10-19] MEDS: MAGNESIUM OXIDE 400 MG TABLET PO SCH ×2 (09:25→17:26)
[2017-10-19] MEDS: CETIRIZINE 10 MG TABLET PO SCH (09:25)
[2017-10-19] MEDS ORDERED: OXYMETAZOLINE HCL 0.05% NASAL SPRAY 15 ML BOTTLE NASL ONE (11:30)
--- NOTE | 2017-10-19 13:58 | PDOC PROGRESS REPORT ---
Subjective Progress Note for:: 10/19/17 Subjective:: Patient reports nose congestion and postnasal discharge since his pain in the hospital. Cough is back Review of systems All organ systems evaluated and negative except as in subjective All significant laboratories and diagnostics have been reviewed Reason For Visit: PNEUMONIA Physical Exam Vital Signs: Temp Pulse Resp BP Pulse Ox 97.7 F 114 H 16 90/51 L 95 10/19/17 11:42 10/19/17 11:42 10/19/17 11:42 10/19/17 11:42 10/19/17 11:42 Intake & Output 10/18/17 10/19/17 10/20/17 06:59 06:59 06:59 Intake Total 960 1315 Output Total 400 Balance 560 1315 Weight 84.6 kg 84.6 kg General appearance: PRESENT: no acute distress, cooperative, well-developed, well-nourished Head exam: PRESENT: atraumatic, normocephalic Eye exam: PRESENT: conjunctiva pink, EOMI, PERRLA Ear exam: PRESENT: normal external ear exam Mouth exam: PRESENT: moist Neck exam: PRESENT: full ROM, JVD, tenderness Respiratory exam: PRESENT: clear to auscultation laurence Cardiovascular exam: PRESENT: RRR. ABSENT: diastolic murmur, systolic murmur Vascular exam: PRESENT: normal capillary refill GI/Abdominal exam: PRESENT: normal bowel sounds, soft. ABSENT: tenderness Extremities exam: PRESENT: full ROM. ABSENT: clubbing, joint swelling Musculoskeletal exam: PRESENT: ambulatory, full ROM Neurological exam: PRESENT: alert, awake, oriented to person, oriented to place , oriented to time, oriented to situation, CN II-XII grossly intact Psychiatric exam: PRESENT: appropriate affect, normal mood Skin exam: PRESENT: intact, normal color Results Laboratory Results: 10/17/17 05:40 10/17/17 05:40 Impressions: Chest X-Ray 10/13/17 14:16 IMPRESSION: Patchy bilateral airspace densities right greater than left which appear more pronounced as compared to the previous study the appearance is most consistent with patchy pneumonic infiltrates. Other findings as noted above Chest/Abdomen CTA 10/13/17 15:39 IMPRESSION: NO PULMONARY EMBOLI. MULTIFOCAL AIRSPACE DISEASE SEEN ON CHEST RADIOGRAPH PRESUMABLY REPRESENTING PNEUMONIA. CORRELATE WITH FEVER AND ELEVATED WHITE BLOOD CELL COUNT. MEDIASTINAL AND RIGHT HILAR LYMPHADENOPATHY NEW COMPARED TO PRIOR STUDY PRESUMABLY REACTIVE TO PNEUMONIA HOWEVER NEOPLASM CANNOT BE EXCLUDED GIVEN HISTORY OF BREAST CANCER. CONSIDER FOLLOW-UP CT CHEST IN 3 MONTHS TO ENSURE RESOLUTION. SMALL RIGHT PLEURAL EFFUSION LIKELY REACTIVE. Assessment & Plan - Diagnosis (1) Acute respiratory failure with hypoxia Is this a current diagnosis for this admission?: Yes Plan: Improving and continue weaning off oxygen (2) Anemia Qualifiers: Anemia type: unspecified type Qualified Code(s): D64.9 - Anemia, unspecified Is this a current diagnosis for this admission?: Yes Plan: Likely due to chronic disease. Stable (3) Aspiration pneumonia Qualifiers: Aspiration pneumonia type: due to vomit Laterality: bilateral Lung location: unspecified part of lung Qualified Code(s): J69.0 - Pneumonitis due to inhalation of food and vomit Is this a current diagnosis for this admission?: Yes Plan: Continue clindamycin and Discontinue Levaquin. Repeat chest x-ray (4) Hilar adenopathy Is this a current diagnosis for this admission?: Yes Plan: Likely due to infectious process. Will be followed by oncology - Time Time Spent with patient: 15-24 minutes Medications reviewed and adjusted accordingly: Yes Anticipated discharge: Home Within: within 24 hours - Inpatient Certification Based on my medical assessment, after consideration of the patient's comorbidities, presenting symptoms, or acuity I expect that the services needed warrant INPATIENT care.: Yes I certify that my determination is in accordance with my understanding of Medicare's requirements for reasonable and necessary INPATIENT services [42 CFR 412.3e].: Yes Medical Necessity: Need Close Monitoring Due to Risk of Patient Decompensation
[2017-10-19] MEDS: HYDROCODONE BIT/HOMATROPINE 5-1.5 MG TABLET PO PRN ×2 (14:21→19:54)
[2017-10-19] MEDS: OXYMETAZOLINE HCL 0.05% NASAL SPRAY 15 ML BOTTLE NASL SCH (21:54)
[2017-10-19] MEDS: LORAZEPAM 0.5 MG TABLET PO PRN (21:57)
[2017-10-19] MEDS: ANASTROZOLE 1 MG TABLET PO SCH (22:04)
[2017-10-19] MEDS: LOSARTAN POTASSIUM 50 MG TABLET PO SCH (22:05)
[2017-10-20] MEDS: ACETAMINOPHEN 325 MG TABLET PO PRN ×3 (05:57→17:26)
[2017-10-20] MEDS: CLINDAMYCIN HCL 150 MG CAPSULE PO SCH (05:58)
[2017-10-20] MEDS: HYDROCODONE BIT/HOMATROPINE 5-1.5 MG TABLET PO PRN ×3 (05:59→22:45)
[2017-10-20] MEDS: LANSOPRAZOLE 30 MG TAB.RAP.DR PO SCH (05:59)
[2017-10-20] MEDS: HEPARIN SOD (PORCINE) 5,000 UNIT/ML 1 ML SYRINGE SUBCUT SCH ×3 (05:59→22:32)
--- NOTE | 2017-10-20 08:31 | PDOC PROGRESS REPORT ---
Subjective Progress Note for:: 10/20/17 Subjective:: Pt seems a bit better from breathing and cough standpoint, cxr stable to improve per my view, no official read yet, today had long discussion w/ pt about how long pneumonia can take to improve and what to expect whenever pt is ready for d/c She will require work off note x 2 weeks most likely, pt has physically and mentally strenous job. Reason For Visit: PNEUMONIA Physical Exam Vital Signs: Temp Pulse Resp BP Pulse Ox 98.5 F 120 H 19 102/49 L 90 L 10/20/17 04:02 10/20/17 07:00 10/20/17 04:02 10/20/17 04:02 10/20/17 04:02 Intake & Output 10/19/17 10/20/17 10/21/17 06:59 06:59 06:59 Intake Total 1315 2160 Output Total 700 Balance 1315 1460 Weight 84.6 kg 83.2 kg General appearance: PRESENT: no acute distress, well-developed, well-nourished Head exam: PRESENT: atraumatic, normocephalic Eye exam: PRESENT: conjunctiva pink, EOMI, PERRLA. ABSENT: scleral icterus Ear exam: PRESENT: normal external ear exam Mouth exam: PRESENT: moist, tongue midline Neck exam: ABSENT: carotid bruit, JVD, lymphadenopathy, thyromegaly Respiratory exam: PRESENT: clear to auscultation laurence. ABSENT: rales, rhonchi, wheezes Cardiovascular exam: PRESENT: RRR. ABSENT: diastolic murmur, rubs, systolic murmur Pulses: PRESENT: normal dorsalis pedis pul Vascular exam: PRESENT: normal capillary refill GI/Abdominal exam: PRESENT: normal bowel sounds, soft. ABSENT: distended, guarding, mass, organolmegaly, rebound, tenderness Rectal exam: PRESENT: deferred Extremities exam: PRESENT: full ROM. ABSENT: calf tenderness, clubbing, pedal edema Neurological exam: PRESENT: alert, awake, oriented to person, oriented to place , oriented to time, oriented to situation, CN II-XII grossly intact. ABSENT: motor sensory deficit Psychiatric exam: PRESENT: appropriate affect, normal mood. ABSENT: homicidal ideation, suicidal ideation Skin exam: PRESENT: dry, intact, warm. ABSENT: cyanosis, rash Results Laboratory Results: 10/17/17 05:40 10/17/17 05:40 Impressions: Chest/Abdomen CTA 10/13/17 15:39 IMPRESSION: NO PULMONARY EMBOLI. MULTIFOCAL AIRSPACE DISEASE SEEN ON CHEST RADIOGRAPH PRESUMABLY REPRESENTING PNEUMONIA. CORRELATE WITH FEVER AND ELEVATED WHITE BLOOD CELL COUNT. MEDIASTINAL AND RIGHT HILAR LYMPHADENOPATHY NEW COMPARED TO PRIOR STUDY PRESUMABLY REACTIVE TO PNEUMONIA HOWEVER NEOPLASM CANNOT BE EXCLUDED GIVEN HISTORY OF BREAST CANCER. CONSIDER FOLLOW-UP CT CHEST IN 3 MONTHS TO ENSURE RESOLUTION. SMALL RIGHT PLEURAL EFFUSION LIKELY REACTIVE. Assessment & Plan - Diagnosis (1) Hilar adenopathy Is this a current diagnosis for this admission?: Yes Plan: reactive, will repeat imaging most likely 8-12 weeks post d/c (2) Aspiration pneumonia Qualifiers: Aspiration pneumonia type: due to vomit Laterality: bilateral Lung location: unspecified part of lung Qualified Code(s): J69.0 - Pneumonitis due to inhalation of food and vomit Is this a current diagnosis for this admission?: Yes Plan: cont atbx per hospitalist team (3) Aspiration pneumonia due to food (regurgitated) Qualifiers: Laterality: right Lung location: upper lobe of lung Qualified Code(s): J69.0 - Pneumonitis due to inhalation of food and vomit Is this a current diagnosis for this admission?: Yes - Time Time Spent with patient: 35 or more minutes - Inpatient Certification Based on my medical assessment, after consideration of the patient's comorbidities, presenting symptoms, or acuity I expect that the services needed warrant INPATIENT care.: Yes I certify that my determination is in accordance with my understanding of Medicare's requirements for reasonable and necessary INPATIENT services [42 CFR 412.3e].: Yes Medical Necessity: Need for IV Antibiotics
--- NOTE | 2017-10-20 08:42 | RADIOLOGY REPORT (SQ) ---
EXAM DESCRIPTION: CHEST SINGLE VIEW COMPLETED DATE/TIME: 10/19/2017 7:26 pm REASON FOR STUDY: follow up [facility] COMPARISON: 10/13/2017. EXAM PARAMETERS: NUMBER OF VIEWS: One view. TECHNIQUE: Single frontal radiographic view of the chest acquired. RADIATION DOSE: NA LIMITATIONS: None. FINDINGS: LUNGS AND PLEURA: Extensive infiltrate in the right lung unchanged. Improved aeration in the left lung. Possible right pleural effusion. MEDIASTINUM AND HILAR STRUCTURES: No masses. Contour normal. HEART AND VASCULAR STRUCTURES: Heart normal in size. Normal vasculature. BONES: No acute findings. HARDWARE: Vascular access port. Surgical clips in the soft tissues. OTHER: No other significant finding. IMPRESSION: NO SIGNIFICANT CHANGE IN THE EXTENSIVE RIGHT LUNG INFILTRATE AND POSSIBLE RIGHT PLEURAL EFFUSION. IMPROVED AERATION IN THE LEFT LUNG. TECHNICAL DOCUMENTATION: JOB ID: [id number] [employer]- All Rights Reserved
[2017-10-20] MEDS: CETIRIZINE 10 MG TABLET PO SCH (10:08)
[2017-10-20] MEDS: FLUTICASONE NASAL SPRAY 50 MCG/SPRY 120 SPRAY/16 GM NASL SCH ×2 (10:09→22:32)
[2017-10-20] MEDS: FUROSEMIDE 20 MG TABLET PO SCH (10:11)
[2017-10-20] MEDS: GUAIFENESIN 600 MG TABLET.SA PO SCH ×2 (10:12→22:32)
[2017-10-20] MEDS: MAGNESIUM OXIDE 400 MG TABLET PO SCH ×2 (10:13→17:26)
[2017-10-20] MEDS: OXYMETAZOLINE HCL 0.05% NASAL SPRAY 15 ML BOTTLE NASL SCH ×2 (10:14→22:32)
[2017-10-20] MEDS: BENZONATATE 100 MG CAPSULE PO PRN (10:17)
[2017-10-20] MEDS: POLYETHYLENE GLYCOL 3350 POWDER 17 GM/1 PACKET PO SCH ×2 (10:19→17:17)
[2017-10-20] MEDS: LACTULOSE SYRUP 20 GM/30 ML UDCUP PO SCH ×2 (10:19→17:17)
[2017-10-20] MEDS: PIPERACILLIN SODIUM/TAZOBACTAM 3.375 GM in NORMAL SALINE 100 ML IV SCH ×2 (14:47→17:27)
[2017-10-20] MEDS: METHYLPREDNISOLONE INJ 40 MG/1 ML SDV IV SCH ×2 (14:52→22:32)
--- NOTE | 2017-10-20 14:55 | RADIOLOGY REPORT (SQ) ---
EXAM DESCRIPTION: CT CHEST WITH COMPLETED DATE/TIME: 10/20/2017 2:35 pm REASON FOR STUDY: eval for empyema COMPARISON: 10/13/2017 and 01/17/2017. TECHNIQUE: CT scan of the chest performed using helical scanning technique with dynamic intravenous contrast injection. Images reviewed with lung, soft tissue and bone windows. Reconstructed coronal and sagittal MPR images reviewed. All images stored on PACS. All CT scanners at this facility use dose modulation, iterative reconstruction, and/or weight based d osing when appropriate to reduce radiation dose to as low as reasonably achievable (ALARA). [facility]: Dose Right [facility]: CareDose [facility]: Dose Right [facility]: Teradose 4D [facility]: MobilePaks CONTRAST TYPE AND DOSE: contrast/concentration: Isovue 370.00 mg/ml; Total Contrast Delivered: 59.1 ml; Total Saline Delivered: 20.0 ml RENAL FUNCTION: BUN 9 creatinine 0.59. RADIATION DOSE: CT Rad equipment meets quality standard of care and radiation dose reduction techniq ues were employed. CTDIvol: 14.4 mGy. DLP: 482 mGy-cm. . LIMITATIONS: None. FINDINGS: LUNGS AND PLEURA: Again seen is extensive airspace disease in the right lung. Patchy pare nchymal densities in the left upper lobe. 4 mm nodule in the right lung (series 4, image 55). Bilat eral pleural effusions, right greater than left. Both pleural effusions have increased in size since the prior study. HILAR AND MEDIASTINAL STRUCTURES: Again seen is mediastinal adenopathy. Lymph bones ranging in size from 1.5 to 2 cm in the subcarinal space, right paratracheal region, and adjacent to the aortic arch. HEART AND VASCULAR STRUCTURES: No aneurysm or dissection. No central pulmonary emboli. No pericardi al effusion. HARDWARE: Vascular access port. Breast implants. UPPER ABDOMEN: No significant findings. Stable hepatic cysts. Limited exam. THYROID AND OTHER SOFT TISSUES: No masses. No adenopathy. BONES: No significant finding. OTHER: No other significant finding. IMPRESSION: 1. EXTENSIVE INFILTRATE IN THE RIGHT LUNG PRESUMABLY DUE TO PNEUMONIA. PATCHY ATELECTASIS/INFILTRATE IN THE LEFT APEX. 2. BILATERAL PLEURAL EFFUSIONS, RIGHT GREATER THAN LEFT, HAVE INCREASED IN SIZE. 3. MEDIASTINAL ADENOPATHY. THESE MAY BE RELATED TO ACUTE INFLAMMATION/INFECTION ALTHOUGH IN THE SETT ING OF BREAST CANCER METASTASES ALSO NEEDS TO BE CONSIDERED. 4. STABLE CYSTS IN THE LIVER. TECHNICAL DOCUMENTATION: JOB ID: [id number] Quality ID # [id number]: Final reports with documentation of one or more dose reduction techniques (e.g., Au tomated exposure control, adjustment of the mA and/or kV according to patient size, use of iterative reconstruction technique) 2010 [employer]- All Rights Reserved
[2017-10-20] MEDS ORDERED: VANCOMYCIN HCL 0 MG in DEXTROSE 5%-WATER 250 ML IV NR (18:30)
--- NOTE | 2017-10-20 18:31 | PDOC PROGRESS REPORT ---
Subjective Progress Note for:: 10/20/17 Subjective:: Patient reports Still having cough. Patient reports that she is concerned that she may be having cancer because of enlarged lymph nodes. Nurse reported that patient desaturated once taking her off oxygen Review of systems All organ systems evaluated and negative except as in subjective All significant laboratories and diagnostics have been reviewed Reason For Visit: PNEUMONIA Physical Exam Vital Signs: Temp Pulse Resp BP Pulse Ox 99.1 F 118 H 16 109/66 98 10/20/17 15:05 10/20/17 15:05 10/20/17 15:05 10/20/17 15:05 10/20/17 16:38 Intake & Output 10/19/17 10/20/17 10/21/17 06:59 06:59 06:59 Intake Total 1315 2160 600 Output Total 700 Balance 1315 1460 600 Weight 84.6 kg 83.2 kg General appearance: PRESENT: no acute distress, cooperative Head exam: PRESENT: atraumatic, normocephalic Eye exam: PRESENT: EOMI, PERRLA Ear exam: PRESENT: normal external ear exam Mouth exam: PRESENT: moist Neck exam: PRESENT: full ROM. ABSENT: JVD, lymphadenopathy, tenderness - Adequate movement of air left-sided with scattered crackles. There is mildly decreased movement of air right-sided with crackles heard throughout Respiratory exam: PRESENT: other Cardiovascular exam: PRESENT: RRR. ABSENT: systolic murmur Vascular exam: PRESENT: normal capillary refill GI/Abdominal exam: PRESENT: normal bowel sounds, soft. ABSENT: tenderness Extremities exam: PRESENT: full ROM. ABSENT: joint swelling, pedal edema Musculoskeletal exam: PRESENT: ambulatory, full ROM Neurological exam: PRESENT: alert, awake, oriented to person, oriented to place , oriented to time, oriented to situation, CN II-XII grossly intact Psychiatric exam: PRESENT: appropriate affect, normal mood Skin exam: PRESENT: intact, normal color Results Laboratory Results: 10/17/17 05:40 10/17/17 05:40 Impressions: Chest/Abdomen CTA 10/13/17 15:39 IMPRESSION: NO PULMONARY EMBOLI. MULTIFOCAL AIRSPACE DISEASE SEEN ON CHEST RADIOGRAPH PRESUMABLY REPRESENTING PNEUMONIA. CORRELATE WITH FEVER AND ELEVATED WHITE BLOOD CELL COUNT. MEDIASTINAL AND RIGHT HILAR LYMPHADENOPATHY NEW COMPARED TO PRIOR STUDY PRESUMABLY REACTIVE TO PNEUMONIA HOWEVER NEOPLASM CANNOT BE EXCLUDED GIVEN HISTORY OF BREAST CANCER. CONSIDER FOLLOW-UP CT CHEST IN 3 MONTHS TO ENSURE RESOLUTION. SMALL RIGHT PLEURAL EFFUSION LIKELY REACTIVE. Chest X-Ray 10/19/17 18:00 IMPRESSION: NO SIGNIFICANT CHANGE IN THE EXTENSIVE RIGHT LUNG INFILTRATE AND POSSIBLE RIGHT PLEURAL EFFUSION. IMPROVED AERATION IN THE LEFT LUNG. Chest CT 10/20/17 00:00 IMPRESSION: 1. EXTENSIVE INFILTRATE IN THE RIGHT LUNG PRESUMABLY DUE TO PNEUMONIA. PATCHY ATELECTASIS/INFILTRATE IN THE LEFT APEX. 2. BILATERAL PLEURAL EFFUSIONS, RIGHT GREATER THAN LEFT, HAVE INCREASED IN SIZE. 3. MEDIASTINAL ADENOPATHY. THESE MAY BE RELATED TO ACUTE INFLAMMATION/ INFECTION ALTHOUGH IN THE SETTING OF BREAST CANCER METASTASES ALSO NEEDS TO BE CONSIDERED. 4. STABLE CYSTS IN THE LIVER. Assessment & Plan - Diagnosis (1) Acute respiratory failure with hypoxia Is this a current diagnosis for this admission?: Yes Plan: Continue oxygen supplementation. (2) Anemia Qualifiers: Anemia type: unspecified type Qualified Code(s): D64.9 - Anemia, unspecified Is this a current diagnosis for this admission?: Yes Plan: Likely due to chronic disease. Stable (3) Aspiration pneumonia Qualifiers: Aspiration pneumonia type: due to vomit Laterality: bilateral Lung location: unspecified part of lung Qualified Code(s): J69.0 - Pneumonitis due to inhalation of food and vomit Is this a current diagnosis for this admission?: Yes Plan: Requested CT scan of the chest and shows pleural effusions. To place patient on Zosyn and vancomycin and request thoracentesis (4) Hilar adenopathy Is this a current diagnosis for this admission?: Yes Plan: Likely due to infectious process. Will be followed by oncology - Time Time Spent with patient: 15-24 minutes Medications reviewed and adjusted accordingly: Yes Anticipated discharge: Home Within: within 72 hours - Inpatient Certification Based on my medical assessment, after consideration of the patient's comorbidities, presenting symptoms, or acuity I expect that the services needed warrant INPATIENT care.: Yes I certify that my determination is in accordance with my understanding of Medicare's requirements for reasonable and necessary INPATIENT services [42 CFR 412.3e].: Yes Medical Necessity: Need Close Monitoring Due to Risk of Patient Decompensation, Need for IV Antibiotics
[2017-10-20 19:47] LABS: INTERNATIONAL RATION (INR) 1.09; PROTHROMBIN TIME 14.8 SEC (11.4-15.4)
[2017-10-20 19:48] LABS: PARTIAL THROMBOPLASTIN TIME 45.6 SEC (23.5-35.8)
[2017-10-20] MEDS ORDERED: VANCOMYCIN HCL 1,250 MG in DEXTROSE 5%-WATER 250 ML IV ONE (21:00)
[2017-10-20] MEDS: ANASTROZOLE 1 MG TABLET PO SCH (22:32)
[2017-10-20] MEDS: LOSARTAN POTASSIUM 50 MG TABLET PO SCH (22:32)
[2017-10-20] MEDS: PROMETHAZINE HCL 25 MG TABLET PO PRN (22:32)
[2017-10-21] MEDS: PIPERACILLIN SODIUM/TAZOBACTAM 3.375 GM in NORMAL SALINE 100 ML IV SCH ×4 (00:52→18:23)
[2017-10-21] MEDS: LANSOPRAZOLE 30 MG TAB.RAP.DR PO SCH (05:46)
[2017-10-21] MEDS: HEPARIN SOD (PORCINE) 5,000 UNIT/ML 1 ML SYRINGE SUBCUT SCH (05:46)
[2017-10-21] MEDS: METHYLPREDNISOLONE INJ 40 MG/1 ML SDV IV SCH ×3 (05:46→22:46)
[2017-10-21] MEDS: HYDROCODONE BIT/HOMATROPINE 5-1.5 MG TABLET PO PRN ×3 (08:27→18:30)
[2017-10-21] MEDS: ACETAMINOPHEN 325 MG TABLET PO PRN (08:28)
[2017-10-21] MEDS: GUAIFENESIN 600 MG TABLET.SA PO SCH ×2 (09:51→22:46)
[2017-10-21] MEDS: OXYMETAZOLINE HCL 0.05% NASAL SPRAY 15 ML BOTTLE NASL SCH ×2 (09:51→22:47)
[2017-10-21] MEDS: MAGNESIUM OXIDE 400 MG TABLET PO SCH ×2 (09:51→17:10)
[2017-10-21] MEDS: FLUTICASONE NASAL SPRAY 50 MCG/SPRY 120 SPRAY/16 GM NASL SCH ×2 (09:51→22:47)
[2017-10-21] MEDS: CETIRIZINE 10 MG TABLET PO SCH (09:52)
[2017-10-21] MEDS: FUROSEMIDE 20 MG TABLET PO SCH (09:52)
[2017-10-21] MEDS: LACTULOSE SYRUP 20 GM/30 ML UDCUP PO SCH ×2 (09:54→17:06)
[2017-10-21] MEDS: POLYETHYLENE GLYCOL 3350 POWDER 17 GM/1 PACKET PO SCH ×2 (09:54→17:06)
[2017-10-21] MEDS: VANCOMYCIN HCL 1,250 MG in DEXTROSE 5%-WATER 250 ML IV SCH ×2 (09:58→22:47)
--- NOTE | 2017-10-21 12:28 | PDOC PROGRESS REPORT ---
Subjective Progress Note for:: 10/21/17 Subjective:: Patient still having shortness of breath and cough. is at bedside. Discussed repeat CT scan results. Made aware that we will proceed with thoracentesis on Monday for the purpose to send it for multiple tests including bacteriology fungal and cytology patient became very tearful as she continues being afraid that it may be cancerous since she had been treated for a while on antibiotic and nothing is happening Review of systems All organ systems evaluated and negative except as in subjective All significant laboratories and diagnostics have been reviewed Reason For Visit: PNEUMONIA Physical Exam Vital Signs: Temp Pulse Resp BP Pulse Ox 97.7 F 96 18 115/61 94 10/21/17 04:35 10/21/17 04:35 10/21/17 04:35 10/21/17 04:35 10/21/17 04:35 Intake & Output 10/20/17 10/21/17 10/22/17 06:59 06:59 06:59 Intake Total 2160 1770 Output Total 700 Balance 1460 1770 Weight 83.2 kg 83.7 kg General appearance: PRESENT: no acute distress, cooperative, well-developed, well-nourished Head exam: PRESENT: atraumatic, normocephalic Eye exam: PRESENT: conjunctiva pink, EOMI, PERRLA Ear exam: PRESENT: normal external ear exam Mouth exam: PRESENT: moist, neck supple Neck exam: PRESENT: full ROM, tenderness. ABSENT: JVD, lymphadenopathy Respiratory exam: PRESENT: crackles, wheezes Cardiovascular exam: PRESENT: RRR. ABSENT: diastolic murmur, systolic murmur Vascular exam: PRESENT: normal capillary refill GI/Abdominal exam: PRESENT: normal bowel sounds, soft. ABSENT: tenderness Extremities exam: ABSENT: clubbing, full ROM, joint swelling, pedal edema Musculoskeletal exam: PRESENT: ambulatory, full ROM Neurological exam: PRESENT: alert, awake, oriented to person, oriented to place , oriented to time, oriented to situation, CN II-XII grossly intact Psychiatric exam: PRESENT: depressed Skin exam: PRESENT: dry, normal color Results Laboratory Results: 10/17/17 05:40 10/17/17 05:40 Impressions: Chest/Abdomen CTA 10/13/17 15:39 IMPRESSION: NO PULMONARY EMBOLI. MULTIFOCAL AIRSPACE DISEASE SEEN ON CHEST RADIOGRAPH PRESUMABLY REPRESENTING PNEUMONIA. CORRELATE WITH FEVER AND ELEVATED WHITE BLOOD CELL COUNT. MEDIASTINAL AND RIGHT HILAR LYMPHADENOPATHY NEW COMPARED TO PRIOR STUDY PRESUMABLY REACTIVE TO PNEUMONIA HOWEVER NEOPLASM CANNOT BE EXCLUDED GIVEN HISTORY OF BREAST CANCER. CONSIDER FOLLOW-UP CT CHEST IN 3 MONTHS TO ENSURE RESOLUTION. SMALL RIGHT PLEURAL EFFUSION LIKELY REACTIVE. Chest X-Ray 10/19/17 18:00 IMPRESSION: NO SIGNIFICANT CHANGE IN THE EXTENSIVE RIGHT LUNG INFILTRATE AND POSSIBLE RIGHT PLEURAL EFFUSION. IMPROVED AERATION IN THE LEFT LUNG. Chest CT 10/20/17 00:00 IMPRESSION: 1. EXTENSIVE INFILTRATE IN THE RIGHT LUNG PRESUMABLY DUE TO PNEUMONIA. PATCHY ATELECTASIS/INFILTRATE IN THE LEFT APEX. 2. BILATERAL PLEURAL EFFUSIONS, RIGHT GREATER THAN LEFT, HAVE INCREASED IN SIZE. 3. MEDIASTINAL ADENOPATHY. THESE MAY BE RELATED TO ACUTE INFLAMMATION/ INFECTION ALTHOUGH IN THE SETTING OF BREAST CANCER METASTASES ALSO NEEDS TO BE CONSIDERED. 4. STABLE CYSTS IN THE LIVER. Assessment & Plan - Diagnosis (1) Acute respiratory failure with hypoxia Is this a current diagnosis for this admission?: Yes Plan: Continue oxygen supplementation. (2) Anemia Qualifiers: Anemia type: unspecified type Qualified Code(s): D64.9 - Anemia, unspecified Is this a current diagnosis for this admission?: Yes Plan: Likely due to chronic disease. Stable (3) Aspiration pneumonia Qualifiers: Aspiration pneumonia type: due to vomit Laterality: bilateral Lung location: unspecified part of lung Qualified Code(s): J69.0 - Pneumonitis due to inhalation of food and vomit Is this a current diagnosis for this admission?: Yes Plan: Requested CT scan of the chest and shows pleural effusions. Continue Zosyn and vancomycin. Thoracentesis will be scheduled as soon as possible. To send for cytology too. (4) Hilar adenopathy Is this a current diagnosis for this admission?: Yes Plan: Likely due to infectious process. Will be followed by oncology (5) Bilateral pleural effusion Is this a current diagnosis for this admission?: Yes Plan: For thoracentesis. To order echocardiogram - Time Time Spent with patient: 15-24 minutes Medications reviewed and adjusted accordingly: Yes Anticipated discharge: Home Within: within 72 hours - Inpatient Certification Based on my medical assessment, after consideration of the patient's comorbidities, presenting symptoms, or acuity I expect that the services needed warrant INPATIENT care.: Yes I certify that my determination is in accordance with my understanding of Medicare's requirements for reasonable and necessary INPATIENT services [42 CFR 412.3e].: Yes Medical Necessity: Need Close Monitoring Due to Risk of Patient Decompensation, Need for IV Antibiotics
[2017-10-21] MEDS ORDERED: LIDOCAINE 2% JELLY 30 ML TUBE MM ONE (19:15)
[2017-10-21] MEDS ORDERED: LIDOCAINE 2% JELLY 30 ML TUBE ONE (21:12)
[2017-10-21] MEDS: LOSARTAN POTASSIUM 50 MG TABLET PO SCH (22:46)
[2017-10-21] MEDS: PROMETHAZINE HCL 25 MG TABLET PO PRN (22:47)
[2017-10-21] MEDS: ANASTROZOLE 1 MG TABLET PO SCH (22:47)
[2017-10-21] MEDS: BENZONATATE 100 MG CAPSULE PO PRN (22:59)
[2017-10-22] MEDS ORDERED: LORAZEPAM 1 MG TABLET PO ONE (00:15)
[2017-10-22] MEDS: PIPERACILLIN SODIUM/TAZOBACTAM 3.375 GM in NORMAL SALINE 100 ML IV SCH ×3 (00:41→12:47)
[2017-10-22] MEDS: ACETAMINOPHEN 325 MG TABLET PO PRN ×2 (00:45→14:39)
[2017-10-22 04:57] LABS: HEMATOCRIT 28.5 % (36.0-47.0); HEMOGLOBIN 9.2 g/dL (12.0-15.5); MEAN CORPUSCULAR HEMOGLOBIN 27.5 pg (27.0-33.4); MEAN CORPUSCULAR HGB CONC 32.1 g/dL (32.0-36.0); MEAN CORPUSCULAR VOLUME 86 fl (80-97); PLATELET COUNT 349 10^3/uL (150-450); RED BLOOD COUNT 3.33 10^6/uL (3.72-5.28); RED CELL DISTRIBUTION WIDTH 16.2 % (11.5-14.0); WHITE BLOOD COUNT 14.1 10^3/uL (4.0-10.5)
[2017-10-22 05:04] LABS: INTERNATIONAL RATION (INR) 1.02; PROTHROMBIN TIME 14.1 SEC (11.4-15.4)
[2017-10-22] MEDS: METHYLPREDNISOLONE INJ 40 MG/1 ML SDV IV SCH ×3 (05:39→21:21)
[2017-10-22] MEDS: LANSOPRAZOLE 30 MG TAB.RAP.DR PO SCH (05:39)
[2017-10-22] MEDS: HYDROCODONE BIT/HOMATROPINE 5-1.5 MG TABLET PO PRN ×2 (05:39→18:59)
--- NOTE | 2017-10-22 09:25 | PDOC PROGRESS REPORT ---
Subjective Progress Note for:: 10/22/17 Subjective:: I spoke with Ms. Hazel by phone yesterday and again at bedside this morning. She has been very upset at the thought of possible cancer recurrence causing the lung abnormalities. She is scheduled for thoracentesis later today with cytology to rule out malignant pleural effusions. She is feeling better this morning after ativan and sleep last night. Her breathing is better. Reason For Visit: PNEUMONIA Physical Exam Vital Signs: Temp Pulse Resp BP Pulse Ox 98.6 F 95 18 105/58 L 95 10/22/17 08:07 10/22/17 08:07 10/22/17 08:07 10/22/17 08:07 10/22/17 08:07 Intake & Output 10/21/17 10/22/17 10/23/17 06:59 06:59 06:59 Intake Total 1770 860 Balance 1770 860 Weight 83.7 kg 84.4 kg General appearance: PRESENT: no acute distress Head exam: PRESENT: atraumatic Respiratory exam: PRESENT: clear to auscultation laurence, unlabored Cardiovascular exam: PRESENT: RRR Extremities exam: ABSENT: pedal edema Neurological exam: PRESENT: alert, awake Psychiatric exam: PRESENT: appropriate affect Results Laboratory Results: 10/22/17 04:30 10/17/17 05:40 10/22/17 04:30 WBC 14.1 H RBC 3.33 L Hgb 9.2 L Hct 28.5 L MCV 86 MCH 27.5 MCHC 32.1 RDW 16.2 H Plt Count 349 Impressions: Chest/Abdomen CTA 10/13/17 15:39 IMPRESSION: NO PULMONARY EMBOLI. MULTIFOCAL AIRSPACE DISEASE SEEN ON CHEST RADIOGRAPH PRESUMABLY REPRESENTING PNEUMONIA. CORRELATE WITH FEVER AND ELEVATED WHITE BLOOD CELL COUNT. MEDIASTINAL AND RIGHT HILAR LYMPHADENOPATHY NEW COMPARED TO PRIOR STUDY PRESUMABLY REACTIVE TO PNEUMONIA HOWEVER NEOPLASM CANNOT BE EXCLUDED GIVEN HISTORY OF BREAST CANCER. CONSIDER FOLLOW-UP CT CHEST IN 3 MONTHS TO ENSURE RESOLUTION. SMALL RIGHT PLEURAL EFFUSION LIKELY REACTIVE. Chest X-Ray 10/19/17 18:00 IMPRESSION: NO SIGNIFICANT CHANGE IN THE EXTENSIVE RIGHT LUNG INFILTRATE AND POSSIBLE RIGHT PLEURAL EFFUSION. IMPROVED AERATION IN THE LEFT LUNG. Chest CT 10/20/17 00:00 IMPRESSION: 1. EXTENSIVE INFILTRATE IN THE RIGHT LUNG PRESUMABLY DUE TO PNEUMONIA. PATCHY ATELECTASIS/INFILTRATE IN THE LEFT APEX. 2. BILATERAL PLEURAL EFFUSIONS, RIGHT GREATER THAN LEFT, HAVE INCREASED IN SIZE. 3. MEDIASTINAL ADENOPATHY. THESE MAY BE RELATED TO ACUTE INFLAMMATION/ INFECTION ALTHOUGH IN THE SETTING OF BREAST CANCER METASTASES ALSO NEEDS TO BE CONSIDERED. 4. STABLE CYSTS IN THE LIVER. Assessment & Plan - Diagnosis (1) Aspiration pneumonia Qualifiers: Aspiration pneumonia type: due to vomit Laterality: bilateral Lung location: unspecified part of lung Qualified Code(s): J69.0 - Pneumonitis due to inhalation of food and vomit Is this a current diagnosis for this admission?: Yes Plan: I printed the CT report and discussed this with the patient. She understands that this looks like pneumonia, however, cancer cannot be fully ruled out by CT. I have explained that they are just being thorough by testing the pleural fluid and although it is possible that this is cancer, it looks more like pneumonia at this point. I spent 20 minutes answering all questions. I will continue to follow and Dr. Pedroza will return tomorrow morning.
--- NOTE | 2017-10-22 10:37 | PDOC PROGRESS REPORT ---
Subjective Progress Note for:: 10/22/17 Subjective:: Patient refers that was having problems sleeping last night but did better after she was given some Ativan. Cough is better. Dr. Nelson is at bedside Review of systems All organ systems evaluated and negative except as in subjective All significant laboratories and diagnostics have been reviewed Reason For Visit: PNEUMONIA Physical Exam Vital Signs: Temp Pulse Resp BP Pulse Ox 98.2 F 102 H 18 117/62 97 10/22/17 01:00 10/22/17 02:00 10/22/17 01:00 10/22/17 01:00 10/22/17 01:00 Intake & Output 10/21/17 10/22/17 10/23/17 06:59 06:59 06:59 Intake Total 1770 860 Balance 1770 860 Weight 83.7 kg 84.4 kg General appearance: PRESENT: no acute distress, cooperative Head exam: PRESENT: atraumatic, normocephalic Eye exam: PRESENT: EOMI, PERRLA Ear exam: PRESENT: normal external ear exam Mouth exam: PRESENT: moist Neck exam: PRESENT: full ROM. ABSENT: JVD, lymphadenopathy, tenderness Respiratory exam: PRESENT: crackles. ABSENT: tachypnea, unlabored Cardiovascular exam: PRESENT: RRR. ABSENT: diastolic murmur, systolic murmur Vascular exam: PRESENT: normal capillary refill GI/Abdominal exam: PRESENT: normal bowel sounds, soft. ABSENT: tenderness Extremities exam: PRESENT: full ROM. ABSENT: joint swelling, pedal edema Musculoskeletal exam: PRESENT: ambulatory, full ROM Neurological exam: PRESENT: alert, awake, oriented to person, oriented to place , oriented to time, oriented to situation, CN II-XII grossly intact Psychiatric exam: PRESENT: appropriate affect, normal mood Skin exam: PRESENT: intact, normal color Results Laboratory Results: 10/22/17 04:30 10/17/17 05:40 10/22/17 04:30 WBC 14.1 H RBC 3.33 L Hgb 9.2 L Hct 28.5 L MCV 86 MCH 27.5 MCHC 32.1 RDW 16.2 H Plt Count 349 Impressions: Chest/Abdomen CTA 10/13/17 15:39 IMPRESSION: NO PULMONARY EMBOLI. MULTIFOCAL AIRSPACE DISEASE SEEN ON CHEST RADIOGRAPH PRESUMABLY REPRESENTING PNEUMONIA. CORRELATE WITH FEVER AND ELEVATED WHITE BLOOD CELL COUNT. MEDIASTINAL AND RIGHT HILAR LYMPHADENOPATHY NEW COMPARED TO PRIOR STUDY PRESUMABLY REACTIVE TO PNEUMONIA HOWEVER NEOPLASM CANNOT BE EXCLUDED GIVEN HISTORY OF BREAST CANCER. CONSIDER FOLLOW-UP CT CHEST IN 3 MONTHS TO ENSURE RESOLUTION. SMALL RIGHT PLEURAL EFFUSION LIKELY REACTIVE. Chest X-Ray 10/19/17 18:00 IMPRESSION: NO SIGNIFICANT CHANGE IN THE EXTENSIVE RIGHT LUNG INFILTRATE AND POSSIBLE RIGHT PLEURAL EFFUSION. IMPROVED AERATION IN THE LEFT LUNG. Chest CT 10/20/17 00:00 IMPRESSION: 1. EXTENSIVE INFILTRATE IN THE RIGHT LUNG PRESUMABLY DUE TO PNEUMONIA. PATCHY ATELECTASIS/INFILTRATE IN THE LEFT APEX. 2. BILATERAL PLEURAL EFFUSIONS, RIGHT GREATER THAN LEFT, HAVE INCREASED IN SIZE. 3. MEDIASTINAL ADENOPATHY. THESE MAY BE RELATED TO ACUTE INFLAMMATION/ INFECTION ALTHOUGH IN THE SETTING OF BREAST CANCER METASTASES ALSO NEEDS TO BE CONSIDERED. 4. STABLE CYSTS IN THE LIVER. Assessment & Plan - Diagnosis (1) Acute respiratory failure with hypoxia Is this a current diagnosis for this admission?: Yes Plan: Continue oxygen supplementation. (2) Anemia Qualifiers: Anemia type: unspecified type Qualified Code(s): D64.9 - Anemia, unspecified Is this a current diagnosis for this admission?: Yes Plan: Likely due to chronic disease. Stable (3) Aspiration pneumonia Qualifiers: Aspiration pneumonia type: due to vomit Laterality: bilateral Lung location: unspecified part of lung Qualified Code(s): J69.0 - Pneumonitis due to inhalation of food and vomit Is this a current diagnosis for this admission?: Yes Plan: Requested CT scan of the chest and shows pleural effusions. Continue Zosyn and vancomycin. Thoracentesis will be performed today (4) Hilar adenopathy Is this a current diagnosis for this admission?: Yes Plan: Likely due to infectious process. Being followed up by oncology (5) Bilateral pleural effusion Is this a current diagnosis for this admission?: Yes Plan: For thoracentesis. Echocardiogram ordered - Time Time Spent with patient: 15-24 minutes Medications reviewed and adjusted accordingly: Yes Anticipated discharge: Home - Disposition will depend on response to antibiotics and thoracentesis results - Inpatient Certification Based on my medical assessment, after consideration of the patient's comorbidities, presenting symptoms, or acuity I expect that the services needed warrant INPATIENT care.: Yes I certify that my determination is in accordance with my understanding of Medicare's requirements for reasonable and necessary INPATIENT services [42 CFR 412.3e].: Yes Medical Necessity: Need for IV Antibiotics
[2017-10-22 10:41] LABS: VANCOMYCIN,TROUGH 6.1 ug/mL (5.0-20.0)
[2017-10-22] MEDS: FUROSEMIDE 20 MG TABLET PO SCH (11:02)
[2017-10-22] MEDS: GUAIFENESIN 600 MG TABLET.SA PO SCH ×2 (11:03→21:21)
[2017-10-22] MEDS: MAGNESIUM OXIDE 400 MG TABLET PO SCH ×2 (11:04→17:34)
[2017-10-22] MEDS: CETIRIZINE 10 MG TABLET PO SCH (11:04)
[2017-10-22] MEDS: VANCOMYCIN HCL 1,250 MG in DEXTROSE 5%-WATER 250 ML IV SCH ×2 (11:04→17:34)
[2017-10-22] MEDS: POLYETHYLENE GLYCOL 3350 POWDER 17 GM/1 PACKET PO SCH ×2 (11:07→17:28)
[2017-10-22] MEDS: FLUTICASONE NASAL SPRAY 50 MCG/SPRY 120 SPRAY/16 GM NASL SCH ×2 (11:07→21:21)
[2017-10-22] MEDS: LACTULOSE SYRUP 20 GM/30 ML UDCUP PO SCH ×2 (11:07→17:28)
[2017-10-22] MEDS: OXYMETAZOLINE HCL 0.05% NASAL SPRAY 15 ML BOTTLE NASL SCH ×2 (11:07→21:22)
--- NOTE | 2017-10-22 14:19 | RADIOLOGY REPORT (SQ) ---
EXAM DESCRIPTION: U/S CHEST COMPLETED DATE/TIME: 10/22/2017 2:04 pm REASON FOR STUDY: bilateral pleural effusions COMPARISON: None. LIMITATIONS: None. PROCEDURE: Procedure, risks, benefit, and alternative explained to patient who then gave written con sent. The posterior right chest wall was marked using ultrasound guidance. A time-out was called fo r correct marking verification. Chest prepped and draped using sterile technique. Local anesthesia a chieved using 8 ml of 1% lidocaine injection. A 6fr Safe-T- Centesis set was introduced into the rig ht pleural space was attempted. Confirmation of catheter placement under ultrasound was visualizatio n. Unable to aspirate any fluid. The liver is visualized just below the right pleural space. Abili ty to adjust entry site is limited by the liver inferiorly and lung tissue superiorly. 2nd attempt w as made slightly higher. Patient reported pain. Due to patient's discomfort procedure was discontin ued. Discussed difficulties with ordering physician. Recommend thoracentesis under CT guidance with conscious sedation. Images acquired during the procedure were stored on PACS. FINDINGS: ENTRY SITE: Right posterior FLUID VOLUME: None FLUID ANALYSIS: None OTHER: None IMPRESSION: Attempted THORACENTESIS USING ULTRASOUND GUIDANCE. COMMENT: Patient medication list reviewed: Yes- Quality ID# [id number]:Eligible professional attests to doc umenting in the medical record they obtained, updated, or reviewed the patient's current medications. Quality ID #[id number]: Final reports for procedures using fluoroscopy that document radiation exposure maureen elin, or exposure time and number of fluorographic images (if radiation exposure indices are not avail able) TECHNICAL DOCUMENTATION: JOB ID: [id number] [employer]- All Rights Reserved
--- NOTE | 2017-10-22 14:43 | RADIOLOGY REPORT (SQ) ---
EXAM DESCRIPTION: CHEST SINGLE VIEW COMPLETED DATE/TIME: 10/22/2017 2:32 pm REASON FOR STUDY: S/P ATTEMPTED RT THORACENTESIS COMPARISON: Chest x-ray 10/19/2017. CT chest 10/20/2017. EXAM PARAMETERS: NUMBER OF VIEWS: One view. TECHNIQUE: Single frontal radiographic view of the chest acquired. RADIATION DOSE: NA LIMITATIONS: None. FINDINGS: LUNGS AND PLEURA: There are small bilateral pleural effusions. Redemonstration of diffuse airspace disease in the right lung. No pneumothorax. MEDIASTINUM AND HILAR STRUCTURES: No masses. Contour normal. HEART AND VASCULAR STRUCTURES: The heart is upper normal limit in size. There is vascular congestion . BONES: No acute findings. HARDWARE: There is a right-sided Port-A-Cath with the tip overlying the region of the SVC. IMPRESSION: No pneumothorax. Small bilateral pleural effusions and vascular congestion. Diffuse ai rspace disease within the right lung, may represent pneumonia. Radiographic follow-up to resolution recommended. TECHNICAL DOCUMENTATION: JOB ID: [id number] 2010 [employer]- All Rights Reserved
[2017-10-22] MEDS ORDERED: LORAZEPAM INJ 2 MG/1 ML VIAL IV PRN (16:19)
[2017-10-22] MEDS: BENZONATATE 100 MG CAPSULE PO PRN (16:33)
[2017-10-22] MEDS ORDERED: MEROPENEM 1 GM VIAL IV PRN (16:45)
[2017-10-22] MEDS: ANASTROZOLE 1 MG TABLET PO SCH (21:21)
[2017-10-22] MEDS: LOSARTAN POTASSIUM 50 MG TABLET PO SCH (21:21)
[2017-10-22] MEDS: LORAZEPAM 0.5 MG TABLET PO PRN (21:22)
[2017-10-22] MEDS: ZOLPIDEM TARTRATE 5 MG TABLET PO SCH (21:24)
[2017-10-22] MEDS ORDERED: MEROPENEM 1 GM VIAL ONE (21:56)
[2017-10-22] MEDS: MEROPENEM 1 GM in NORMAL SALINE 50 ML IV SCH (22:05)
[2017-10-22] MEDS: PROMETHAZINE HCL 25 MG TABLET PO PRN (22:16)
[2017-10-23] MEDS: VANCOMYCIN HCL 1,250 MG in DEXTROSE 5%-WATER 250 ML IV SCH ×2 (01:11→10:30)
[2017-10-23] MEDS: HYDROCODONE BIT/HOMATROPINE 5-1.5 MG TABLET PO PRN ×2 (02:46→22:55)
[2017-10-23] MEDS ORDERED: DEXTROSE 40% GEL 15 GM TUBE PO PRN ×2 (02:48)
[2017-10-23] MEDS ORDERED: GLUCAGON,HUMAN RECOMB 1 MG INJ SUBCUT PRN (02:48)
[2017-10-23] MEDS ORDERED: DEXTROSE 50%-WATER 25 GM/50 ML DISP.SYRIN IV PRN ×2 (02:48)
[2017-10-23] MEDS: LANSOPRAZOLE 30 MG TAB.RAP.DR PO SCH (05:05)
[2017-10-23] MEDS: BENZONATATE 100 MG CAPSULE PO PRN (05:05)
[2017-10-23] MEDS: METHYLPREDNISOLONE INJ 40 MG/1 ML SDV IV SCH ×3 (05:05→22:18)
[2017-10-23] MEDS ORDERED: MEROPENEM 1 GM VIAL ONE (05:10)
[2017-10-23] MEDS: MEROPENEM 1 GM in NORMAL SALINE 50 ML IV SCH ×3 (05:29→22:18)
[2017-10-23 06:47] LABS: HEMATOCRIT 27.9 % (36.0-47.0); HEMOGLOBIN 9.1 g/dL (12.0-15.5); MEAN CORPUSCULAR HEMOGLOBIN 27.9 pg (27.0-33.4); MEAN CORPUSCULAR HGB CONC 32.4 g/dL (32.0-36.0); MEAN CORPUSCULAR VOLUME 86 fl (80-97); PLATELET COUNT 340 10^3/uL (150-450); RED BLOOD COUNT 3.24 10^6/uL (3.72-5.28); RED CELL DISTRIBUTION WIDTH 16.7 % (11.5-14.0); WHITE BLOOD COUNT 12.7 10^3/uL (4.0-10.5)
[2017-10-23 06:51] LABS: INTERNATIONAL RATION (INR) 0.87; PROTHROMBIN TIME 12.4 SEC (11.4-15.4)
[2017-10-23 07:06] LABS: ALANINE AMINOTRANSFERASE 47 U/L (9-52); ALBUMIN 2.7 g/dL (3.5-5.0); ALKALINE PHOSPHATASE 81 U/L (38-126); ANION GAP 9 (5-19); ASPARTATE AMINO TRANSFERASE 26 U/L (14-36); BLOOD UREA NITROGEN 13 mg/dL (7-20); CALCIUM 8.7 mg/dL (8.4-10.2); CARBON DIOXIDE 26 mmol/L (22-30); CHLORIDE 105 mmol/L (98-107); GLUCOSE 173 mg/dL (75-110); POTASSIUM 4.6 mmol/L (3.6-5.0); SODIUM 139.7 mmol/L (137-145); TOTAL PROTEIN 5.6 g/dL (6.3-8.2)
[2017-10-23 07:09] LABS: BILIRUBIN,TOTAL < 0.1 mg/dL (0.2-1.3)
--- NOTE | 2017-10-23 08:53 | PDOC PROGRESS REPORT ---
Subjective Progress Note for:: 10/23/17 Subjective:: No acute events overnight but pt still w/ desat on removal of o2, thoracentesis attempted but could not be done 2nd to pain, so conscious sedation and CT guided approach planned this am Reason For Visit: PNEUMONIA Physical Exam Vital Signs: Temp Pulse Resp BP Pulse Ox 98.1 F 84 14 122/65 100 10/23/17 08:00 10/23/17 08:00 10/23/17 08:00 10/23/17 08:00 10/23/17 08:00 Intake & Output 10/22/17 10/23/17 10/24/17 06:59 06:59 06:59 Intake Total 860 1200 Balance 860 1200 Weight 84.4 kg 84.4 kg General appearance: PRESENT: no acute distress, well-developed, well-nourished Head exam: PRESENT: atraumatic, normocephalic Eye exam: PRESENT: conjunctiva pink, EOMI, PERRLA. ABSENT: scleral icterus Ear exam: PRESENT: normal external ear exam Mouth exam: PRESENT: moist, tongue midline Neck exam: ABSENT: carotid bruit, JVD, lymphadenopathy, thyromegaly Respiratory exam: PRESENT: clear to auscultation laurence. ABSENT: rales, rhonchi, wheezes Cardiovascular exam: PRESENT: RRR. ABSENT: diastolic murmur, rubs, systolic murmur Pulses: PRESENT: normal dorsalis pedis pul Vascular exam: PRESENT: normal capillary refill GI/Abdominal exam: PRESENT: normal bowel sounds, soft. ABSENT: distended, guarding, mass, organolmegaly, rebound, tenderness Rectal exam: PRESENT: deferred Extremities exam: PRESENT: full ROM. ABSENT: calf tenderness, clubbing, pedal edema Neurological exam: PRESENT: alert, awake, oriented to person, oriented to place , oriented to time, oriented to situation, CN II-XII grossly intact. ABSENT: motor sensory deficit Psychiatric exam: PRESENT: appropriate affect, normal mood. ABSENT: homicidal ideation, suicidal ideation Skin exam: PRESENT: dry, intact, warm. ABSENT: cyanosis, rash Results Laboratory Results: 10/23/17 05:00 10/23/17 05:00 10/22/17 10/23/17 10/23/17 09:37 05:00 05:00 WBC 12.7 H RBC 3.24 L Hgb 9.1 L Hct 27.9 L MCV 86 MCH 27.9 MCHC 32.4 RDW 16.7 H Plt Count 340 Sodium 139.7 Potassium 4.6 Chloride 105 Carbon Dioxide 26 Anion Gap 9 BUN 13 Creatinine 0.60 0.54 Est GFR ( Amer) > 60 > 60 Est GFR (Non-Af Amer) > 60 > 60 Glucose 173 H Calcium 8.7 Total Bilirubin < 0.1 L AST 26 ALT 47 Alkaline Phosphatase 81 Total Protein 5.6 L Albumin 2.7 L Impressions: Chest/Abdomen CTA 10/13/17 15:39 IMPRESSION: NO PULMONARY EMBOLI. MULTIFOCAL AIRSPACE DISEASE SEEN ON CHEST RADIOGRAPH PRESUMABLY REPRESENTING PNEUMONIA. CORRELATE WITH FEVER AND ELEVATED WHITE BLOOD CELL COUNT. MEDIASTINAL AND RIGHT HILAR LYMPHADENOPATHY NEW COMPARED TO PRIOR STUDY PRESUMABLY REACTIVE TO PNEUMONIA HOWEVER NEOPLASM CANNOT BE EXCLUDED GIVEN HISTORY OF BREAST CANCER. CONSIDER FOLLOW-UP CT CHEST IN 3 MONTHS TO ENSURE RESOLUTION. SMALL RIGHT PLEURAL EFFUSION LIKELY REACTIVE. Chest CT 10/20/17 00:00 IMPRESSION: 1. EXTENSIVE INFILTRATE IN THE RIGHT LUNG PRESUMABLY DUE TO PNEUMONIA. PATCHY ATELECTASIS/INFILTRATE IN THE LEFT APEX. 2. BILATERAL PLEURAL EFFUSIONS, RIGHT GREATER THAN LEFT, HAVE INCREASED IN SIZE. 3. MEDIASTINAL ADENOPATHY. THESE MAY BE RELATED TO ACUTE INFLAMMATION/ INFECTION ALTHOUGH IN THE SETTING OF BREAST CANCER METASTASES ALSO NEEDS TO BE CONSIDERED. 4. STABLE CYSTS IN THE LIVER. Chest Ultrasound 10/22/17 00:00 IMPRESSION: Attempted THORACENTESIS USING ULTRASOUND GUIDANCE. Chest X-Ray 10/22/17 00:00 IMPRESSION: No pneumothorax. Small bilateral pleural effusions and vascular congestion. Diffuse airspace disease within the right lung, may represent pneumonia. Radiographic follow-up to resolution recommended. Assessment & Plan - Diagnosis (1) Hilar adenopathy Is this a current diagnosis for this admission?: Yes Plan: reactive, 2nd to infection will f/u as outpt (2) Aspiration pneumonia Qualifiers: Aspiration pneumonia type: due to vomit Laterality: bilateral Lung location: unspecified part of lung Qualified Code(s): J69.0 - Pneumonitis due to inhalation of food and vomit Is this a current diagnosis for this admission?: Yes Plan: This is likely cause of effusion but agree w/ tap, con't atbx (3) Aspiration pneumonia due to food (regurgitated) Qualifiers: Laterality: right Lung location: upper lobe of lung Qualified Code(s): J69.0 - Pneumonitis due to inhalation of food and vomit Is this a current diagnosis for this admission?: Yes (4) Bilateral pleural effusion Is this a current diagnosis for this admission?: Yes Plan: probably 2nd infection, awaiting thoracentesis and culture and cytology on specimen - Time Time Spent with patient: 35 or more minutes - today had >35 min discussion w/ pt and provided reassurance - Inpatient Certification Based on my medical assessment, after consideration of the patient's comorbidities, presenting symptoms, or acuity I expect that the services needed warrant INPATIENT care.: Yes I certify that my determination is in accordance with my understanding of Medicare's requirements for reasonable and necessary INPATIENT services [42 CFR 412.3e].: Yes Medical Necessity: Need for IV Antibiotics, Need for Surgery
[2017-10-23] MEDS: LACTULOSE SYRUP 20 GM/30 ML UDCUP PO SCH ×2 (09:33→17:21)
[2017-10-23] MEDS: CETIRIZINE 10 MG TABLET PO SCH (09:33)
[2017-10-23] MEDS: POLYETHYLENE GLYCOL 3350 POWDER 17 GM/1 PACKET PO SCH ×2 (09:33→17:21)
[2017-10-23] MEDS: GUAIFENESIN 600 MG TABLET.SA PO SCH ×2 (09:33→22:18)
[2017-10-23] MEDS: MAGNESIUM OXIDE 400 MG TABLET PO SCH ×2 (09:33→17:18)
[2017-10-23] MEDS: FUROSEMIDE 20 MG TABLET PO SCH (09:33)
[2017-10-23] MEDS: OXYMETAZOLINE HCL 0.05% NASAL SPRAY 15 ML BOTTLE NASL SCH ×2 (10:23→22:18)
[2017-10-23] MEDS: LORAZEPAM 0.5 MG TABLET PO PRN ×2 (10:23→17:19)
[2017-10-23] MEDS: FLUTICASONE NASAL SPRAY 50 MCG/SPRY 120 SPRAY/16 GM NASL SCH ×2 (10:23→22:18)
[2017-10-23 11:20] LABS: VANCOMYCIN,TROUGH 11.1 ug/mL (5.0-20.0)
--- NOTE | 2017-10-23 13:03 | PDOC PROGRESS REPORT ---
Subjective Progress Note for:: 10/23/17 Subjective:: Patient relates that breathing is better but gets cough spell off and on that take his breath away. She admits that have been having shortness of breath for some time Review of systems All organ systems evaluated and negative except as in subjective All significant laboratories and diagnostics have been reviewed Reason For Visit: PNEUMONIA Physical Exam Vital Signs: Temp Pulse Resp BP Pulse Ox 98.3 F 88 16 125/67 100 10/22/17 20:01 10/23/17 02:00 10/22/17 20:01 10/22/17 20:01 10/22/17 20:01 Intake & Output 10/22/17 10/23/17 10/24/17 06:59 06:59 06:59 Intake Total 860 1200 Balance 860 1200 Weight 84.4 kg 84.4 kg General appearance: PRESENT: no acute distress, cooperative, obese Head exam: PRESENT: atraumatic, normocephalic Eye exam: PRESENT: EOMI, PERRLA Ear exam: PRESENT: normal external ear exam, TM's normal bilaterally Mouth exam: PRESENT: moist, neck supple Neck exam: PRESENT: full ROM. ABSENT: JVD, lymphadenopathy, tenderness - Adequate movement of air with scattered crackles primarily right-sided Cardiovascular exam: PRESENT: RRR. ABSENT: diastolic murmur, systolic murmur Vascular exam: PRESENT: normal capillary refill GI/Abdominal exam: PRESENT: normal bowel sounds, soft. ABSENT: tenderness Extremities exam: PRESENT: full ROM. ABSENT: clubbing, joint swelling, pedal edema Musculoskeletal exam: PRESENT: ambulatory, full ROM Neurological exam: PRESENT: alert, awake, oriented to person, oriented to place , oriented to time, oriented to situation, CN II-XII grossly intact Psychiatric exam: PRESENT: appropriate affect, normal mood Skin exam: PRESENT: intact, normal color Results Laboratory Results: 10/23/17 05:00 10/23/17 05:00 10/22/17 10/23/17 10/23/17 09:37 05:00 05:00 WBC 12.7 H RBC 3.24 L Hgb 9.1 L Hct 27.9 L MCV 86 MCH 27.9 MCHC 32.4 RDW 16.7 H Plt Count 340 Sodium 139.7 Potassium 4.6 Chloride 105 Carbon Dioxide 26 Anion Gap 9 BUN 13 Creatinine 0.60 0.54 Est GFR ( Amer) > 60 > 60 Est GFR (Non-Af Amer) > 60 > 60 Glucose 173 H Calcium 8.7 Total Bilirubin < 0.1 L AST 26 ALT 47 Alkaline Phosphatase 81 Total Protein 5.6 L Albumin 2.7 L Impressions: Chest/Abdomen CTA 10/13/17 15:39 IMPRESSION: NO PULMONARY EMBOLI. MULTIFOCAL AIRSPACE DISEASE SEEN ON CHEST RADIOGRAPH PRESUMABLY REPRESENTING PNEUMONIA. CORRELATE WITH FEVER AND ELEVATED WHITE BLOOD CELL COUNT. MEDIASTINAL AND RIGHT HILAR LYMPHADENOPATHY NEW COMPARED TO PRIOR STUDY PRESUMABLY REACTIVE TO PNEUMONIA HOWEVER NEOPLASM CANNOT BE EXCLUDED GIVEN HISTORY OF BREAST CANCER. CONSIDER FOLLOW-UP CT CHEST IN 3 MONTHS TO ENSURE RESOLUTION. SMALL RIGHT PLEURAL EFFUSION LIKELY REACTIVE. Chest CT 10/20/17 00:00 IMPRESSION: 1. EXTENSIVE INFILTRATE IN THE RIGHT LUNG PRESUMABLY DUE TO PNEUMONIA. PATCHY ATELECTASIS/INFILTRATE IN THE LEFT APEX. 2. BILATERAL PLEURAL EFFUSIONS, RIGHT GREATER THAN LEFT, HAVE INCREASED IN SIZE. 3. MEDIASTINAL ADENOPATHY. THESE MAY BE RELATED TO ACUTE INFLAMMATION/ INFECTION ALTHOUGH IN THE SETTING OF BREAST CANCER METASTASES ALSO NEEDS TO BE CONSIDERED. 4. STABLE CYSTS IN THE LIVER. Chest Ultrasound 10/22/17 00:00 IMPRESSION: Attempted THORACENTESIS USING ULTRASOUND GUIDANCE. Chest X-Ray 10/22/17 00:00 IMPRESSION: No pneumothorax. Small bilateral pleural effusions and vascular congestion. Diffuse airspace disease within the right lung, may represent pneumonia. Radiographic follow-up to resolution recommended. Assessment & Plan - Diagnosis (1) Acute respiratory failure with hypoxia Is this a current diagnosis for this admission?: Yes Plan: Continue oxygen supplementation. (2) Anemia Qualifiers: Anemia type: unspecified type Qualified Code(s): D64.9 - Anemia, unspecified Is this a current diagnosis for this admission?: Yes Plan: Likely due to chronic disease. Stable (3) Aspiration pneumonia Qualifiers: Aspiration pneumonia type: due to vomit Laterality: bilateral Lung location: unspecified part of lung Qualified Code(s): J69.0 - Pneumonitis due to inhalation of food and vomit Is this a current diagnosis for this admission?: Yes Plan: Repeat CT scan of the chest worsening of pleural effusions. Continue meropenem and vancomycin. RT to attempt thoracenteis CT guided today. (4) Hilar adenopathy Is this a current diagnosis for this admission?: Yes Plan: Likely due to infectious process. Talked to Dr Medina about patient's condition today. (5) Bilateral pleural effusion Is this a current diagnosis for this admission?: Yes Plan: For thoracentesis. Echocardiogram result pending - Time Time Spent with patient: 15-24 minutes Medications reviewed and adjusted accordingly: Yes Anticipated discharge: Home Within: within 48 hours - Inpatient Certification Based on my medical assessment, after consideration of the patient's comorbidities, presenting symptoms, or acuity I expect that the services needed warrant INPATIENT care.: Yes I certify that my determination is in accordance with my understanding of Medicare's requirements for reasonable and necessary INPATIENT services [42 CFR 412.3e].: Yes Medical Necessity: Need for IV Antibiotics
[2017-10-23] MEDS ORDERED: MIDAZOLAM 2 MG/2 ML INJ ONE (13:44)
[2017-10-23] MEDS ORDERED: FENTANYL CITRATE INJ/PF 100 MCG/2 ML AMPUL ONE (13:45)
--- NOTE | 2017-10-23 15:54 | RADIOLOGY REPORT (SQ) ---
EXAM DESCRIPTION: CT CHEST WITHOUT COMPLETED DATE/TIME: 10/23/2017 3:41 pm REASON FOR STUDY: bilateral pleural effusions COMPARISON: None. CAFE ASSISTANT: Florian SUPERVISING PHYSICIAN: Florian FLUOROSCOPY TIME: CT Fluoroscopy: 28 seconds RADIATION DOSE: CT Rad equipment meets quality standard of care and radiation dose reduction techniq ues were employed. CTDIvol: 19.3 - 20.1 mGy. DLP: 2029 mGy-cm. mGy. LIMITATIONS: None. PROCEDURE: Procedure, risks, benefit, and alternative explained to patient who then gave written con sent. The posterior right chest wall was marked using CT guidance; "time-out" called; correct markin g verified. Chest prepped and draped using sterile technique. Local anesthesia achieved using 1% l idocaine injection. Hypodermic needle introduced into the posterior right pleural space. Fluid cou ld not be aspirated. Needle removed and entry site covered with sterile bandage. Images acquired during the procedure were stored on PACS. All CT scanners at this facility use dose modulation, iterative reconstruction, and/or weight based d osing when appropriate to reduce radiation dose to as low as reasonably achievable (ALARA). [facility]: Dose Right [facility]: CareDose [facility]: Dose Right [facility]: Teradose 4D [facility]: [employer] FINDINGS: ENTRY SITE: Posterior right chest. FLUID VOLUME: Less than 1 cc. FLUID ANALYSIS: Not applicable. OTHER: None. IMPRESSION: Unsuccessful right thoracentesis. COMMENT: At my direction, under continuous physiologic monitoring of the patient by the radiology n christina before, during and after the procedure, a total of 1Milligrams of IV Versed and 100micrograms of IV fentanyl were given in divided doses. No immediate c omplications. Documentation face to face time, the performing proceduralist, spent monitoring the patient: 30minute s. Patient medication list reviewed: Yes- PQRS [id number]:Eligible professional attests to documenting in the medical record they obtained, updated, or reviewed the patient's current medications. Quality ID 145: Final reports for procedures using fluoroscopy that document radiation exposure maureen elin, or exposure time and number of fluorographic images (if radiation exposure indices are not avail able) TECHNICAL DOCUMENTATION: JOB ID: [id number] Quality ID # [id number]: Final reports with documentation of one or more dose reduction techniques (e.g., Au tomated exposure control, adjustment of the mA and/or kV according to patient size, use of iterative reconstruction technique) 2010 [employer]- All Rights Reserved
[2017-10-23] MEDS: ACETAMINOPHEN 325 MG TABLET PO PRN (17:18)
[2017-10-23] MEDS: VANCOMYCIN HCL 1,500 MG in DEXTROSE 5%-WATER 250 ML IV SCH (17:21)
--- NOTE | 2017-10-23 18:03 | RADIOLOGY REPORT (SQ) ---
EXAM DESCRIPTION: CHEST SINGLE VIEW COMPLETED DATE/TIME: 10/23/2017 5:50 pm REASON FOR STUDY: POST THORACENTESIS-- 2 HR FILM COMPARISON: 10/22/2017. EXAM PARAMETERS: NUMBER OF VIEWS: One view. TECHNIQUE: Single frontal radiographic view of the chest acquired. RADIATION DOSE: NA LIMITATIONS: None. FINDINGS: LUNGS AND PLEURA: Scattered airspace disease in the right lung. Right pleural effusion. No pneumothorax. MEDIASTINUM AND HILAR STRUCTURES: No masses. Contour normal. HEART AND VASCULAR STRUCTURES: Heart normal in size. Normal vasculature. BONES: No acute findings. HARDWARE: Vascular access port. Surgical clips in soft tissues. OTHER: No other significant finding. IMPRESSION: NO PNEUMOTHORAX AFTER ATTEMPTED THORACENTESIS. NO CHANGE IN APPEARANCE OF THE CHEST. TECHNICAL DOCUMENTATION: JOB ID: [id number] [employer]- All Rights Reserved
--- NOTE | 2017-10-23 18:26 | XCELERA REPORT ---
[address] [address] Transthoracic Echocardiogram Report Name: ARNULFO DE LEÓN Age: 57 yrs Gender: Female : 1960 Patient Status: Inpatient Patient Location: [address] [place] [address] Study Date: 10/23/2017 09:18 AM Height: 65 in Weight: 184 lb BSA: 1.9 m2 Procedure: A complete two-dimensional transthoracic echocardiogram was performed (2D, M-mode, spectral and color flow Doppler). The study was technically difficult with many images being suboptimal in quality. Reason For Study: bilateral pleural effusions Ordering Physician: JASON YBARRA Performed By: Joan Love Interpretation Summary The left ventricular ejection fraction is normal. There is borderline concentric left ventricular hypertrophy. LV diastolic function could not be adequately assessed. The left ventricle is grossly normal size. Wall motion cannot be accurately commented on, but no definite regional wall motion abnormalities noted. The right ventricular systolic function is normal. Borderline right ventricular enlargement. Borderline left atrial enlargement. The right atrium is normal. There is a trace amount of mitral regurgitation There is no mitral valve stenosis. No aortic regurgitation is present. There is no aortic valve stenosis There is a trace to mild amount of tricuspid regurgitation There is mild pulmonary hypertension by echo Right ventricular systolic pressure is estimated to be elevated at 30- 40mmHg. Minimal pericardial effusion. MMode/2D Measurements & Calculations RVDd: 3.3 cm LVIDd: 4.2 cm FS: 33.7 % Ao root diam: 2.9 cm IVSd: 0.96 cm LVIDs: 2.8 cm EDV(Teich): 76.5 ml LVPWd: 0.98 cmESV(Teich): 28.4 ml Ao root area: 6.8 cm2 EF(Teich): 62.9 % LA dimension: 3.8 cm LVOT diam: 2.1 cm LVOT area: 3.5 cm2 Doppler Measurements & Calculations MV E max leon: MV P1/2t max leon: Ao V2 max: LV V1 max P.6 cm/sec 69.1 cm/sec 158.2 cm/sec 5.4 mmHg MV A max leon: MV P1/2t: 46.1 msec Ao max PG: LV V1 max: 56.8 cm/sec MVA(P1/2t): 4.8 cm2 10.0 mmHg 116.0 cm/sec MV E/A: 1.2 MV dec slope: JUNIOR(V,D): 2.6 cm2 438.8 cm/sec2 PA V2 max: TR max leon: 84.9 cm/sec 273.8 cm/sec PA max PG: TR max P.0 mmHg 2.9 mmHg Left Ventricle The left ventricle is grossly normal size. There is borderline concentric left ventricular hypertrophy. The left ventricular ejection fraction is normal. LV diastolic function could not be adequately assessed. Wall motion cannot be accurately commented on, but no definite regional wall motion abnormalities noted. Right Ventricle Borderline right ventricular enlargement. There is normal right ventricular wall thickness. The right ventricular systolic function is normal. Atria The right atrium is normal. Borderline left atrial enlargement. Interarterial septum not well visualized and not well dopplered. Cannot comment on ASD/PFO presence. Mitral Valve The mitral valve leaflets are sclerotic, but show no functional abnormalities. There is no mitral valve stenosis. There is a trace amount of mitral regurgitation. Aortic Valve The aortic valve is not well visualized secondary to technical limitations. There is no aortic valve stenosis. No aortic regurgitation is present. Tricuspid Valve The tricuspid valve is not well visualized secondary to technical limitations. There is no tricuspid stenosis. There is a trace to mild amount of tricuspid regurgitation. There is mild pulmonary hypertension by echo. Right ventricular systolic pressure is estimated to be elevated at 30-40mmHg. Pulmonic Valve The pulmonic valve is not well visualized. Great Vessels The aortic root is not well visualized. The inferior vena cava appeared normal and decreased > 50% with respiration (RAP 5-10 mmHg). Effusions Minimal pericardial effusion. : JASON YBARRA > Prabhu Hoang
[2017-10-23] MEDS: ZOLPIDEM TARTRATE 5 MG TABLET PO SCH (22:11)
[2017-10-23] MEDS: ANASTROZOLE 1 MG TABLET PO SCH (22:18)
[2017-10-23] MEDS: LOSARTAN POTASSIUM 50 MG TABLET PO SCH (22:19)
[2017-10-24] MEDS: VANCOMYCIN HCL 1,500 MG in DEXTROSE 5%-WATER 250 ML IV SCH ×3 (02:02→17:26)
[2017-10-24] MEDS: HYDROCODONE BIT/HOMATROPINE 5-1.5 MG TABLET PO PRN ×3 (03:35→15:26)
[2017-10-24] MEDS: LANSOPRAZOLE 30 MG TAB.RAP.DR PO SCH (05:29)
[2017-10-24] MEDS: MEROPENEM 1 GM in NORMAL SALINE 50 ML IV SCH ×2 (05:30→16:49)
[2017-10-24] MEDS: METHYLPREDNISOLONE INJ 40 MG/1 ML SDV IV SCH ×2 (05:30→16:52)
--- NOTE | 2017-10-24 08:27 | PDOC PROGRESS REPORT ---
Subjective Progress Note for:: 10/24/17 Subjective:: No acute events overnight, thoracentesis not successful yesterday. Pt is better today. I ordered home o2 eval to see if needed. Reason For Visit: PNEUMONIA Physical Exam Vital Signs: Temp Pulse Resp BP Pulse Ox 98.6 F 87 20 103/55 L 93 10/23/17 23:39 10/24/17 07:00 10/23/17 23:39 10/23/17 23:39 10/23/17 23:39 Intake & Output 10/23/17 10/24/17 10/25/17 06:59 06:59 06:59 Intake Total 1200 580 Balance 1200 580 Weight 84.4 kg 85.7 kg General appearance: PRESENT: no acute distress, well-developed, well-nourished Head exam: PRESENT: atraumatic, normocephalic Eye exam: PRESENT: conjunctiva pink, EOMI, PERRLA. ABSENT: scleral icterus Ear exam: PRESENT: normal external ear exam Mouth exam: PRESENT: moist, tongue midline Neck exam: ABSENT: carotid bruit, JVD, lymphadenopathy, thyromegaly Respiratory exam: PRESENT: clear to auscultation laurence. ABSENT: rales, rhonchi, wheezes Cardiovascular exam: PRESENT: RRR. ABSENT: diastolic murmur, rubs, systolic murmur Pulses: PRESENT: normal dorsalis pedis pul Vascular exam: PRESENT: normal capillary refill GI/Abdominal exam: PRESENT: normal bowel sounds, soft. ABSENT: distended, guarding, mass, organolmegaly, rebound, tenderness Rectal exam: PRESENT: deferred Extremities exam: PRESENT: full ROM. ABSENT: calf tenderness, clubbing, pedal edema Neurological exam: PRESENT: alert, awake, oriented to person, oriented to place , oriented to time, oriented to situation, CN II-XII grossly intact. ABSENT: motor sensory deficit Psychiatric exam: PRESENT: appropriate affect, normal mood. ABSENT: homicidal ideation, suicidal ideation Skin exam: PRESENT: dry, intact, warm. ABSENT: cyanosis, rash Results Laboratory Results: 10/23/17 05:00 10/23/17 10:30 10/23/17 10:30 Creatinine 0.52 Est GFR ( Amer) > 60 Est GFR (Non-Af Amer) > 60 Impressions: Chest/Abdomen CTA 10/13/17 15:39 IMPRESSION: NO PULMONARY EMBOLI. MULTIFOCAL AIRSPACE DISEASE SEEN ON CHEST RADIOGRAPH PRESUMABLY REPRESENTING PNEUMONIA. CORRELATE WITH FEVER AND ELEVATED WHITE BLOOD CELL COUNT. MEDIASTINAL AND RIGHT HILAR LYMPHADENOPATHY NEW COMPARED TO PRIOR STUDY PRESUMABLY REACTIVE TO PNEUMONIA HOWEVER NEOPLASM CANNOT BE EXCLUDED GIVEN HISTORY OF BREAST CANCER. CONSIDER FOLLOW-UP CT CHEST IN 3 MONTHS TO ENSURE RESOLUTION. SMALL RIGHT PLEURAL EFFUSION LIKELY REACTIVE. Chest Ultrasound 10/22/17 00:00 IMPRESSION: Attempted THORACENTESIS USING ULTRASOUND GUIDANCE. Chest CT 10/23/17 08:00 IMPRESSION: Unsuccessful right thoracentesis. Chest X-Ray 10/23/17 15:30 IMPRESSION: NO PNEUMOTHORAX AFTER ATTEMPTED THORACENTESIS. NO CHANGE IN APPEARANCE OF THE CHEST. Assessment & Plan - Diagnosis (1) Hilar adenopathy Is this a current diagnosis for this admission?: Yes Plan: Reactive, 2nd infection most likely. (2) Aspiration pneumonia Qualifiers: Aspiration pneumonia type: due to vomit Laterality: bilateral Lung location: unspecified part of lung Qualified Code(s): J69.0 - Pneumonitis due to inhalation of food and vomit Is this a current diagnosis for this admission?: Yes Plan: Improved, home 02 eval today, d/c soon hopefully depending on clinical status noted by hospitalist today. Pt will need atbx course today (3) Aspiration pneumonia due to food (regurgitated) Qualifiers: Laterality: right Lung location: upper lobe of lung Qualified Code(s): J69.0 - Pneumonitis due to inhalation of food and vomit Is this a current diagnosis for this admission?: Yes (4) Bilateral pleural effusion Is this a current diagnosis for this admission?: Yes Plan: Most likely parapneumonic, does not need further intervention other than pneumonia rx. - Time Time Spent with patient: 35 or more minutes
[2017-10-24] MEDS: CETIRIZINE 10 MG TABLET PO SCH (10:25)
[2017-10-24] MEDS: MAGNESIUM OXIDE 400 MG TABLET PO SCH ×2 (10:26→17:25)
[2017-10-24] MEDS: GUAIFENESIN 600 MG TABLET.SA PO SCH (10:26)
[2017-10-24] MEDS: OXYMETAZOLINE HCL 0.05% NASAL SPRAY 15 ML BOTTLE NASL SCH (10:26)
[2017-10-24] MEDS: FLUTICASONE NASAL SPRAY 50 MCG/SPRY 120 SPRAY/16 GM NASL SCH (10:26)
[2017-10-24] MEDS: POLYETHYLENE GLYCOL 3350 POWDER 17 GM/1 PACKET PO SCH ×2 (10:32→17:22)
[2017-10-24] MEDS: LACTULOSE SYRUP 20 GM/30 ML UDCUP PO SCH ×2 (10:32→17:22)
[2017-10-24] MEDS ORDERED: LIDOCAINE 2% JELLY 5 ML TUBE TOP PRN (15:22)
[2017-10-24] MEDS: FUROSEMIDE 20 MG TABLET PO SCH (15:25)
[2017-10-24 20:14] VITALS: BP 116/62
--- NOTE | 2017-11-23 06:37 | PDOC DISCHARGE SUMMARY ---
General - Admit/Disc Date/PCP Admission Date/Primary Care Provider: 10/13/17 21:09 JOSIE KIM, Discharge Date: 10/24/17 - Discharge Diagnosis (1) History of breast cancer Is this a current diagnosis for this admission?: Yes (2) Hypertension Is this a current diagnosis for this admission?: Yes (3) Multifocal pneumonia Is this a current diagnosis for this admission?: Yes (4) Acute respiratory failure with hypoxia Is this a current diagnosis for this admission?: Yes (5) DVT prophylaxis Is this a current diagnosis for this admission?: Yes - Additional Information Resuscitation Status: Full Code Discharge Diet: As Tolerated Discharge Activity: Activity As Tolerated Prescriptions: Hydrocodone Bit/Homatropine [Hycodan 5-1.5 mg Tablet] 1 tab PO Q4HP PRN #30 tablet PRN Reason: Acidoph/L.bulg/Bif.b/S.thermop [Bacid Caplet] 1 each PO BID #30 tablet Amox Tr/Potassium Clavulanate [Augmentin 875-125 mg Tablet] 1 tab PO BID #20 tablet Doxycycline Hyclate 100 mg PO BID #20 capsule Fluticasone Propionate [Flonase Nasal Bittinger 50 Mcg/Bittinger 16 gm] 2 spray NASL Q12 #1 spray.pump Guaifenesin [Mucinex Sr 600 mg Tablet.] 1,200 mg PO Q12 #40 tablet. Home Medications: Albuterol Sulfate [Albuterol Sulfate 2.5mg/3 mL] 1 vial IH Q8HP PRN 10/13/17 Anastrozole [Arimidex 1 mg Tablet] 1 mg PO QPM 10/13/17 Benzonatate [Tessalon Perles 100 mg Capsule] 200 mg PO Q8HP PRN 10/13/17 Cetirizine HCl [Zyrtec 10 mg Tablet] 10 mg PO DAILY 10/13/17 Furosemide [Lasix 20 mg Tablet] 20 mg PO DAILY 10/13/17 Ibuprofen [Motrin 800 mg Tablet] 800 mg PO Q3HWA 10/13/17 Losartan/Hydrochlorothiazide [Losartan-Hctz 50-12.5 mg Tab] 1 each PO QPM Acidoph/L.bulg/Bif.b/S.thermop [Bacid Caplet] 1 each PO BID #30 tablet 10/24/17 Amox Tr/Potassium Clavulanate [Augmentin 875-125 mg Tablet] 1 tab PO BID #20 tablet 10/24/17 Doxycycline Hyclate 100 mg PO BID #20 capsule 10/24/17 Fluticasone Propionate [Flonase Nasal Bittinger 50 Mcg/Bittinger 16 gm] 2 spray NASL Q12 #1 spray.pump 10/24/17 Guaifenesin [Mucinex Sr 600 mg Tablet.sa] 1,200 mg PO Q12 #40 tablet.sa Hydrocodone Bit/Homatropine [Hycodan 5-1.5 mg Tablet] 1 tab PO Q4HP PRN #30 tablet 10/24/17 Polyethylene Glycol 3350 [Miralax Powder 17 gm/Packet] 17 gm PO BID powd.pack 10/24/17 History of Present Illness Patient complains of: SOB History of Present Illness: ARNULFO DE LEÓN is a 57 year old female with a past medical history of breast cancer status post double mastectomy. She presents to the emergency room with rhinorrhea, cough and shortness of breath of increasing severity over the last 6 weeks despite treatment with 2 courses of antibiotics Levaquin followed by Augmentin. In the emergency room she is found to have tachypnea and tachycardia and a CT of the chest showing multifocal airspace disease suggestive of pneumonia versus neoplasm, concerning giving her history and lack of significant leukocytosis. She started on empiric antibiotics, albuterol and Atrovent and referred to the hospitalist for admission. Patient denies chest pain nausea vomiting but has significant anxiety. Hospital Course Hospital Course: (1) Hilar adenopathy Is this a current diagnosis for this admission?: Yes Plan: reactive, 2nd to infection will f/u as outpt (2) Aspiration pneumonia Patient was treated with broad-spectrum antibiotics and improved (3) Bilateral pleural effusion Thoracentesis was difficult to perform Treatment was continued empirically and patient improved somewhat clinically She was discharged on Augmentin and doxycycline close follow-up with Dr. Pedroza Physical Exam Vital Signs: Temp Pulse Resp BP Pulse Ox 98.2 F 101 H 16 116/62 100 10/24/17 19:41 10/24/17 19:41 10/24/17 19:41 10/24/17 19:41 10/24/17 19:41 General appearance: PRESENT: no acute distress, cooperative, obese Head exam: PRESENT: atraumatic, normocephalic Eye exam: PRESENT: EOMI, PERRLA Ear exam: PRESENT: normal external ear exam, TM's normal bilaterally Mouth exam: PRESENT: moist, neck supple Neck exam: PRESENT: full ROM. ABSENT: JVD, lymphadenopathy, tenderness - Adequate movement of air with scattered crackles primarily right-sided Cardiovascular exam: PRESENT: RRR. ABSENT: diastolic murmur, systolic murmur Vascular exam: PRESENT: normal capillary refill GI/Abdominal exam: PRESENT: normal bowel sounds, soft. ABSENT: tenderness Extremities exam: PRESENT: full ROM. ABSENT: clubbing, joint swelling, pedal edema Musculoskeletal exam: PRESENT: ambulatory, full ROM Neurological exam: PRESENT: alert, awake, oriented to person, oriented to place , oriented to time, oriented to situation, CN II-XII grossly intact Psychiatric exam: PRESENT: appropriate affect, normal mood Skin exam: PRESENT: intact, normal color Results Laboratory Results: 10/23/17 05:00 10/23/17 10:30 Impressions: Chest/Abdomen CTA 10/13/17 15:39 IMPRESSION: NO PULMONARY EMBOLI. MULTIFOCAL AIRSPACE DISEASE SEEN ON CHEST RADIOGRAPH PRESUMABLY REPRESENTING PNEUMONIA. CORRELATE WITH FEVER AND ELEVATED WHITE BLOOD CELL COUNT. MEDIASTINAL AND RIGHT HILAR LYMPHADENOPATHY NEW COMPARED TO PRIOR STUDY PRESUMABLY REACTIVE TO PNEUMONIA HOWEVER NEOPLASM CANNOT BE EXCLUDED GIVEN HISTORY OF BREAST CANCER. CONSIDER FOLLOW-UP CT CHEST IN 3 MONTHS TO ENSURE RESOLUTION. SMALL RIGHT PLEURAL EFFUSION LIKELY REACTIVE. Chest Ultrasound 10/22/17 00:00 IMPRESSION: Attempted THORACENTESIS USING ULTRASOUND GUIDANCE. Chest CT 10/23/17 08:00 IMPRESSION: Unsuccessful right thoracentesis. Chest X-Ray 10/23/17 15:30 IMPRESSION: NO PNEUMOTHORAX AFTER ATTEMPTED THORACENTESIS. NO CHANGE IN APPEARANCE OF THE CHEST. Qualifiers - * PATEINT BEING DISCHARGED WITH ANY OF THE FOLLOWING DIAGNOSIS?: No Plan Discharge Plan: Follow up with Dr. Pedroza Time Spent: Greater than 30 Minutes
== END 2017-10-24 20:55 | disposition home or self-care (01) | DRG 177 ==
LOC: ER 12:34 → EH 21:09 → 4S 22:27
PROVIDERS: ADMIT Internal Medicine; ATTEND Internal Medicine
PROC: 3E0234Z Introduction of Serum, Toxoid and Vaccine into Muscle, Percutaneous Approach (ICD-10-PCS; 2017-10-14)
PROC: 5A09357 Assistance with Respiratory Ventilation, Less than 24 Consecutive Hours, Continuous Positive Airway Pressure (ICD-10-PCS; 2017-10-15)
PROC: 0BJK3ZZ Inspection of Right Lung, Percutaneous Approach (ICD-10-PCS; principal; 2017-10-23)
DX: J69.0 Pneumonitis due to inhalation of food and vomit (principal); J96.01 Acute respiratory failure with hypoxia; I10 Essential (primary) hypertension; F32.9 Major depressive disorder, single episode, unspecified; R59.0 Localized enlarged lymph nodes; D63.0 Anemia in neoplastic disease; E87.6 Hypokalemia; Z79.899 Other long term (current) drug therapy; Z90.13 Acquired absence of bilateral breasts and nipples; Z85.3 Personal history of malignant neoplasm of breast; Z90.710 Acquired absence of both cervix and uterus; Z87.891 Personal history of nicotine dependence; Z82.49 Family history of ischemic heart disease and other diseases of the circulatory system
CPT/HCPCS: 36415; 71045; 71046; 71250; 71260; 71275; 76604; 80048; 80053; 80076; 80202; 81001; 82550; 82565; 82803; 82962; 83605; 83615; 83735; 85025; 85027; 85610; 85730; 87040; 87070; 87086; 87205; 93005; 93010; 93306; 94640; 94799; 96361; 96365; 96368; 99285; J0456; J0692; J0696; J1642; J1644; J1956; J2185; J2250; J2405; J2543; J2920; J3010; J3370; J3490; J7030; J7060; J7120; J7620

== ENCOUNTER 2017-10-26 15:21 | Outpatient (CLI) | payer BC ==
[2017-10-26] MEDS ORDERED: NORMAL SALINE 1000 ML 1,000 ML IV PRN (15:55)
[2017-10-26] MEDS ORDERED: PROMETHAZINE HCL INJ 25 MG/1 ML VIAL IV ONE (16:30)
[2017-10-26 16:42] VITALS: BP 138/46
== END 2017-10-26 16:52 | disposition home or self-care (01) ==
LOC: II 15:21 → 5TH 15:33 → II 16:52
PROVIDERS: ATTEND Internal Medicine
PROC: 3E0437Z Introduction of Electrolytic and Water Balance Substance into Central Vein, Percutaneous Approach (ICD-10-PCS; principal; 2017-10-26)
PROC: 3E043GC Introduction of Other Therapeutic Substance into Central Vein, Percutaneous Approach (ICD-10-PCS; 2017-10-26)
DX: E86.0 Dehydration (principal); R11.0 Nausea; C50.412 Malignant neoplasm of upper-outer quadrant of left female breast
CPT/HCPCS: 96375; 96360; J2550; 96361; 96374

== ENCOUNTER 2017-10-26 17:24 | Emergency (ER) | payer BC ==
[2017-10-26] MEDS ORDERED: NORMAL SALINE 1000 ML 1,000 ML IV ONE ×3 (18:40→22:14)
[2017-10-26] MEDS ORDERED: ACETAMINOPHEN 325 MG TABLET PO ONE (18:40)
[2017-10-26] MEDS ORDERED: ONDANSETRON HCL INJ/PF 4 MG/2 ML SDV IV ONE (18:41)
--- NOTE | 2017-10-26 19:08 | RADIOLOGY REPORT (SQ) ---
EXAM DESCRIPTION: CHEST SINGLE VIEW COMPLETED DATE/TIME: 10/26/2017 6:58 pm REASON FOR STUDY: sob COMPARISON: 10/23/2017. EXAM PARAMETERS: NUMBER OF VIEWS: One view. TECHNIQUE: Single frontal radiographic view of the chest acquired. RADIATION DOSE: NA LIMITATIONS: None. FINDINGS: LUNGS AND PLEURA: Worsening bilateral airspace disease, right greater than left. Bilatera l pleural effusions. MEDIASTINUM AND HILAR STRUCTURES: No masses. Contour normal. HEART AND VASCULAR STRUCTURES: Heart normal in size. Normal vasculature. BONES: No acute findings. HARDWARE: Vascular access port. Surgical clips. OTHER: No other significant finding. IMPRESSION: WORSENING AIRSPACE DISEASE, RIGHT GREATER THAN LEFT. BILATERAL PLEURAL EFFUSIONS. TECHNICAL DOCUMENTATION: JOB ID: [id number] [employer] All Rights Reserved
[2017-10-26] MEDS ORDERED: PROCHLORPERAZINE EDISYLATE INJ 10 MG/2 ML VIAL IV ONE (19:10)
[2017-10-26] MEDS ORDERED: DIPHENHYDRAMINE HCL 50 MG/ML VIAL IV ONE (19:10)
--- NOTE | 2017-10-26 19:10 | ER Document Report ---
ED Respiratory Problem - General Mode of Arrival: Ambulatory Information source: Patient TRAVEL OUTSIDE OF THE [place] IN LAST 30 DAYS: No <KAREN MATTHEWS - Last Filed: 10/26/17 22:19> <MARIAH OJEDA - Last Filed: 10/27/17 05:11> - General Chief Complaint: Nausea/Vomiting Stated Complaint: NAUSEA,COUGH,CONGESTION,VOMITING Time Seen by Provider: 10/26/17 18:32 Notes: Patient is a 57-year-old female presents to the emergency department today with complaints of dehydration. Patient was admitted 13 days ago for pneumonia and was just discharged today. Patient states when she got home she developed nausea and vomiting. Patient states she has had a persistent cough throughout. Patient had a failed thoracentesis yesterday while in the hospital. (KAREN MATTHEWS) - Related Data Allergies/Adverse Reactions: No Known Allergies Allergy (Verified 09/24/17 08:11) Past Medical History - General Information source: Patient - Social History Smoking Status: Former Smoker Cigarette use (# per day): No Frequency of alcohol use: None Drug Abuse: None Lives with: Family Family History: Reviewed & Not Pertinent, Hypertension - Past Medical History Cardiac Medical History: Reports: Hx Hypertension Malignancy Medical History: Reports: Hx Breast Cancer - Treated with chemotherapy. Current remission. Double mastectomy. Psychiatric Medical History: Reports: Hx Depression Past Surgical History: Reports: Hx Breast Surgery - lumpectomy, lymphnodectomy L axilla, double mastectomy, Hx Hysterectomy, Other - Bilateral mastectomy - Immunizations Hx Diphtheria, Pertussis, Tetanus Vaccination: Yes <KAREN MATTHEWS - Last Filed: 10/26/17 22:19> Review of Systems - Review of Systems Constitutional: See HPI, Other - dehyrdated EENT: No symptoms reported Cardiovascular: No symptoms reported Respiratory: See HPI, Cough, Short of breath Gastrointestinal: See HPI, Abdominal pain, Nausea, Vomiting Genitourinary: No symptoms reported Female Genitourinary: No symptoms reported Musculoskeletal: No symptoms reported Skin: No symptoms reported Hematologic/Lymphatic: No symptoms reported Neurological/Psychological: No symptoms reported -: Yes All other systems reviewed and negative <KAREN MATTHEWS - Last Filed: 10/26/17 22:19> Physical Exam <KAREN MATTHEWS - Last Filed: 10/26/17 22:19> <MARIAH OJEDA - Last Filed: 10/27/17 05:11> - Vital signs Vitals: Temp Pulse Resp BP Pulse Ox 101.6 F H 133 H 16 120/64 92 10/26/17 17:49 10/26/17 17:49 10/26/17 17:49 10/26/17 17:49 10/26/17 17:49 - Notes Notes: Physical Exam: General: Alert, appears uncomfortable, mild distress. HEENT: Normocephalic. Atraumatic. PERRL. Extraocular movements intact. Oropharynx clear. Dry mucous membranes. Neck: Supple. Non-tender. Respiratory: Tachypneic. Decreased breath sounds in the bases bilaterally. Cardiovascular: Regular rate and rhythm. Abdominal: Diffuse abdominal tenderness with palpation worsened in the right upper quadrant. No distension. Normal Bowel Sounds. Back: Non-tender. No deformity or step off. Extremities: Moves all four extremities. Upper extremities: Normal inspection. Normal ROM. Lower extremities: Normal inspection. No edema. Normal ROM. Neurological: Normal cognition. AAOx4. Normal speech. Psychological: Normal affect. Normal Mood. Skin: Warm. Dry. Normal color. (KAREN MATTHEWS) Course - Laboratory Result Diagrams: 10/26/17 19:09 10/26/17 19:09 <KAREN MATTHEWS - Last Filed: 10/26/17 22:19> - Laboratory Result Diagrams: 10/26/17 19:09 10/26/17 19:09 - Diagnostic Test Radiology reviewed: Image reviewed, Reports reviewed <MARIAH OJEDA - Last Filed: 10/27/17 05:11> - Re-evaluation Re-evalutation: 10/26/17 19:[address] Pedroza to consult with him about patient, suspects empyema. 10/26/17 21:10 Called [facility], no beds. 10/26/17 21:10 Called [facility], they do have beds, waiting corporate concierge back from ICU doctor. 10/26/17 21:[address] Mcbride at [facility] 10/26/17 22:19 (KAREN MATTHEWS) 10/26/17 22:19 Patient is a 57-year-old female with a history of breast cancer with mastectomy who was recently admitted for pneumonia. Patient had pleural effusion. Patient was doing better and was sent home on Monday. I am unable to find the discharge summary yet. Patient presents today with fever, tachycardia and vomiting. Discussed with her oncologist. Recommends CT. Patient is also having some abdominal pain to CT chest abdomen and pelvis was performed. No acute findings on abdomen. CT is concerning for loculated effusion consistent with possible empyema. Discussed with oncology and recommended the patient be transferred for CT surgery could evaluate her. Patient initially requested to go to [facility] where she has been before however there are no beds available. Patient was discussed with [facility] and has been accepted there for transfer. She is agreeable to this plan and grateful for care. 10/27/17 00:13 Stable for transport. Nauseated, given Reglan for ride to [facility]. (MARIAH OJEAD) - Vital Signs Vital signs: Temp Pulse Resp BP Pulse Ox 99.4 F 133 H 37 H 110/69 97 10/26/17 22:08 10/26/17 17:49 10/27/17 00:01 10/27/17 00:01 10/27/17 00:01 - Laboratory Laboratory results interpreted by dc: 10/26/17 10/26/17 10/26/17 19:09 19:09 19:09 WBC 18.7 H RBC 3.31 L Hgb 9.3 L Hct 28.7 L RDW 17.8 H Seg Neuts % (Manual) 89 H Lymphocytes % (Manual) 2 L Abs Neuts (Manual) 17.4 H Abs Lymphs (Manual) 0.4 L VBG pH 7.47 H Sodium 134.7 L Creatinine 0.51 L Glucose 139 H POC Glucose Total Protein 5.5 L Albumin 2.7 L Urine Ketones 10/26/17 10/26/17 19:27 19:30 WBC RBC Hgb Hct RDW Seg Neuts % (Manual) Lymphocytes % (Manual) Abs Neuts (Manual) Abs Lymphs (Manual) VBG pH Sodium Creatinine Glucose POC Glucose 145 H Total Protein Albumin Urine Ketones TRACE H Critical Care Note - Critical Care Note Total time excluding time spent on procedures (mins): 75 - Evaluation and management of tachycardia, fever, hypoxia, probable sepsis, diagnosis of probable empyema, coordination with specialist, coordination of transfer, counseling of patient and family, multiple re-evaluations <MARIAH OJEDA - Last Filed: 10/27/17 05:11> Discharge <KAREN MATTHEWS - Last Filed: 10/26/17 22:19> <MARIAH OJEDA - Last Filed: 10/27/17 05:11> - Discharge Clinical Impression: Empyema lung, Hypoxia Sepsis Qualifiers: Sepsis type: sepsis due to unspecified organism Qualified Code(s): A41.9 - Sepsis, unspecified organism Condition: Stable Disposition: [facility] Scribe Attestation: 10/27/17 05:10 I personally performed the services described in the documentation, reviewed and edited the documentation which was dictated to the scribe in my presence, and it accurately records my words and actions. (MARIAH OJEDA) Scribe Documentation - Scribe Written by Scribe:: Rosalee Rausch, 10/26/20172026 acting as scribe for :: [email or web address] <KAREN MATTHEWS - Last Filed: 10/26/17 22:19>
[2017-10-26 19:29] LABS: VENOUS BLOOD BASE EXCESS 1.7 mmol/L; VENOUS BLOOD HCO3 24.9 mmol/L (20-32); VENOUS BLOOD PCO2 35.3 mmHg (35-63); VENOUS BLOOD PH 7.47 (7.30-7.42)
[2017-10-26 19:33] LABS: HEMATOCRIT 28.7 % (36.0-47.0); HEMOGLOBIN 9.3 g/dL (12.0-15.5); MEAN CORPUSCULAR HEMOGLOBIN 28.1 pg (27.0-33.4); MEAN CORPUSCULAR HGB CONC 32.5 g/dL (32.0-36.0); MEAN CORPUSCULAR VOLUME 87 fl (80-97); PLATELET COUNT 354 10^3/uL (150-450); RED BLOOD COUNT 3.31 10^6/uL (3.72-5.28); RED CELL DISTRIBUTION WIDTH 17.8 % (11.5-14.0); WHITE BLOOD COUNT 18.7 10^3/uL (4.0-10.5)
[2017-10-26 19:37] LABS: INTERNATIONAL RATION (INR) 1.14; PROTHROMBIN TIME 15.4 SEC (11.4-15.4)
[2017-10-26 19:38] LABS: PARTIAL THROMBOPLASTIN TIME 34.5 SEC (23.5-35.8)
[2017-10-26 19:44] LABS: ALANINE AMINOTRANSFERASE 39 U/L (9-52); ALBUMIN 2.7 g/dL (3.5-5.0); ALKALINE PHOSPHATASE 95 U/L (38-126); ANION GAP 10 (5-19); ASPARTATE AMINO TRANSFERASE 22 U/L (14-36); BILIRUBIN,DIRECT 0.4 mg/dL (0.0-0.4); BILIRUBIN,TOTAL 0.4 mg/dL (0.2-1.3); BLOOD UREA NITROGEN 9 mg/dL (7-20); CALCIUM 8.8 mg/dL (8.4-10.2); CARBON DIOXIDE 24 mmol/L (22-30); CHLORIDE 101 mmol/L (98-107); GLUCOSE 139 mg/dL (75-110); POTASSIUM 3.9 mmol/L (3.6-5.0); SODIUM 134.7 mmol/L (137-145); TOTAL PROTEIN 5.5 g/dL (6.3-8.2)
[2017-10-26] MEDS ORDERED: ACETAMINOPHEN 325 MG SUPP.RECT PR ONE (19:54)
[2017-10-26 19:57] LABS: ABSOLUTE LYMPHOCYTES# (MANUAL) 0.4 10^3/uL (0.5-4.7); ABSOLUTE MONOCYTES # (MANUAL) 0.9 10^3/uL (0.1-1.4); ABSOLUTE NEUTROPHILS# (MANUAL) 17.4 10^3/uL (1.7-8.2); BAND NEUTROPHILS % (MANUAL) 4 % (3-5); BASOPHILS % (MANUAL) 0 % (0-2); EOSINOPHILS % (MANUAL) 0 % (0-6); LYMPHOCYTES % (MANUAL) 2 % (13-45); MONOCYTES % (MANUAL) 5 % (3-13); SEGMENTED NEUTROPHILS % (MAN) 89 % (42-78); TOTAL CELLS COUNTED 100
[2017-10-26 19:59] LABS: POIKILOCYTOSIS SLIGHT; POLYCHROMASIA SLIGHT; TEAR DROP CELLS SLIGHT
[2017-10-26 20:01] LABS: PLATELET COMMENT ADEQUATE
[2017-10-26 20:30] LABS: A TYPE INFLUENZA AG NEGATIVE (NEGATIVE); B INFLUENZA AG NEGATIVE (NEGATIVE)
[2017-10-26 20:37] LABS: APPEARANCE,URINE SLIGHTLY-CLOUDY; BILIRUBIN,URINE NEGATIVE (NEGATIVE); COLOR,URINE YELLOW; GLUCOSE, URINE NEGATIVE (NEGATIVE); KETONES,URINE TRACE mg/dL (NEGATIVE); LEUKOCYTE ESTERASE,URINE NEGATIVE (NEGATIVE); NITRITE,URINE NEGATIVE (NEGATIVE); PROTEIN,URINE NEGATIVE (NEGATIVE); URINE SPECIFIC GRAVITY 1.016; UROBILINOGEN,URINE NEGATIVE mg/dL (<2.0)
[2017-10-26] MEDS ORDERED: VANCOMYCIN HCL INJ 1000 MG VIAL IV ONE (21:18)
[2017-10-26] MEDS ORDERED: LEVOFLOXACIN 750 MG/D5W RTU 750 MG/150 ML RTUPB IV ONE (21:18)
[2017-10-26] MEDS ORDERED: CEFEPIME 2 GM/D5W RTU 2 GM/50 ML RTUPB IV ONE (21:18)
--- NOTE | 2017-10-26 21:19 | RADIOLOGY REPORT (SQ) ---
EXAM DESCRIPTION: CTA CHEST COMPLETED DATE/TIME: 10/26/2017 9:03 pm REASON FOR STUDY: SOb, hypoxia, evaluate for infection/PE COMPARISON: 10/20/2017. TECHNIQUE: CT scan of the chest performed using helical scanning technique with dynamic intravenous contrast injection. Images reviewed with lung, soft tissue and bone windows. Reconstructed coronal and sagittal MPR images reviewed. Additional 3 dimensional post-processing performed to develop Maximal Intensity Projection images (IN P). All images stored on PACS. All CT scanners at this facility use dose modulation, iterative reconstruction, and/or weight based d osing when appropriate to reduce radiation dose to as low as reasonably achievable (ALARA). [facility]: Dose Right [facility]: CareDose [facility]: Dose Right [facility]: Teradose 4D [facility]: giddy CONTRAST TYPE AND DOSE: contrast/concentration: Isovue 370.00 mg/ml; Total Contrast Delivered: 80.0 ml; Total Saline Delivered: 90.0 ml Contrast bolus adequate for pulmonary arteries and aorta. RENAL FUNCTION: BUN 9 creatinine 0.51. RADIATION DOSE: CT Rad equipment meets quality standard of care and radiation dose reduction techniq ues were employed. CTDIvol: 18.8 - 26.4 mGy. DLP: 2812 mGy-cm. . LIMITATIONS: None. FINDINGS: LUNGS AND PLEURA: Extensive infiltrate throughout the right lung. 4 mm nodule in the righ t lower lobe. Patchy atelectasis in the left lung. Large right pleural effusion and small left pleu ral effusion. AORTA AND GREAT VESSELS: No aneurysm. No dissection. HEART: No pericardial effusion. No significant coronary artery calcifications. PULMONARY ARTERIES: No emboli visualized in the main pulmonary arteries or the segmental branches. HILAR AND MEDIASTINAL STRUCTURES: Mediastinal adenopathy unchanged. HARDWARE: Vascular access port. Breast implants. UPPER ABDOMEN: No significant findings. Limited exam. THYROID AND OTHER SOFT TISSUES: No masses. No adenopathy. BONES: No acute or significant finding. 3D MIPS: Confirm above findings. OTHER: No other significant finding. IMPRESSION: 1. NORMAL CTA OF THE CHEST. NO PULMONARY EMBOLI. 2. EXTENSIVE INFILTRATE THROUGHOUT THE RIGHT LUNG. LARGE RIGHT PLEURAL EFFUSION AND SMALL LEFT PLEUR AL EFFUSION. 3. MEDIASTINAL ADENOPATHY. COMMENT: Quality ID # 436: Final reports with documentation of one or more dose reduction techniques (e.g., Automated exposure control, adjustment of the mA and/or kV according to patient size, use of iterative reconstruction technique) TECHNICAL DOCUMENTATION: JOB ID: [id number] [employer]- All Rights Reserved
[2017-10-26] MEDS ORDERED: PANTOPRAZOLE SODIUM 40 MG VIAL IV ONE (21:20)
[2017-10-26] MEDS ORDERED: METOCLOPRAMIDE HCL INJ/PF 10 MG/2 ML SDV IV ONE (21:20)
--- NOTE | 2017-10-26 21:34 | RADIOLOGY REPORT (SQ) ---
EXAM DESCRIPTION: CT ABD/PELVIS WITH IV ONLY COMPLETED DATE/TIME: 10/26/2017 9:03 pm REASON FOR STUDY: fever, abd pain, n/v COMPARISON: 01/17/2017. TECHNIQUE: CT scan of the abdomen and pelvis performed using helical scanning technique with dynamic intravenous contrast injection. No oral contrast. Images reviewed with lung, soft tissue, and bone windows. Reconstructed coronal and sagittal MPR images reviewed. Delayed images for evaluation of the urinary system also acquired. All images stored on PACS. All CT scanners at this facility use dose modulation, iterative reconstruction, and/or weight based d osing when appropriate to reduce radiation dose to as low as reasonably achievable (ALARA). [facility]: Dose Right [facility]: CareDose [facility]: Dose Right [facility]: Teradose 4D [facility]: [place] CONTRAST TYPE AND DOSE: 93 mL Isovue 370- low osmolar. RENAL FUNCTION: BUN 9 creatinine 0.51. RADIATION DOSE: . LIMITATIONS: None. FINDINGS: LOWER CHEST: See separate report of the CT of the chest. LIVER: Normal size. Hepatic cysts, unchanged. No masses. No dilated ducts. SPLEEN: Normal size. No focal lesions. PANCREAS: No masses. No significant calcifications. No adjacent inflammation or peripancreatic fluid collections. Pancreatic duct not dilated. GALLBLADDER: No identified stones by CT criteria. No inflammatory changes to suggest cholecystitis. ADRENAL GLANDS: No significant masses or asymmetry. RIGHT KIDNEY AND URETER: No solid masses. No significant calcifications. No hydronephrosis or hyd roureter. LEFT KIDNEY AND URETER: No solid masses. No significant calcifications. No hydronephrosis or hydr oureter. AORTA AND VESSELS: No aneurysm. No dissection. Renal arteries, SMA, celiac without stenosis. RETROPERITONEUM: Scattered periaortic lymph nodes, primarily on the left side of the abdominal aorta. Largest measures 0.8 x 1.5 cm. These have increased in size from the prior study. BOWEL AND PERITONEAL CAVITY: No masses or inflammatory changes. No free fluid or peritoneal masses. APPENDIX: Normal. PELVIS: No mass. No free fluid. Normal bladder. ABDOMINAL WALL: No masses. Diastases of the rectus abdominus muscles. No hernias. BONES: No significant or acute findings. OTHER: No other significant finding. IMPRESSION: 1. MILD PERIAORTIC ADENOPATHY WHICH HAS INCREASED SINCE THE PRIOR STUDY. 2. STABLE HEPATIC CYSTS. 3. NO OTHER SIGNIFICANT OR ACUTE FINDING IN THE ABDOMEN OR PELVIS ON CT SCAN WITH IV CONTRAST. TECHNICAL DOCUMENTATION: JOB ID: [id number] Quality ID # [id number]: Final reports with documentation of one or more dose reduction techniques (e.g., Au tomated exposure control, adjustment of the mA and/or kV according to patient size, use of iterative reconstruction technique) 2010 [employer]- All Rights Reserved
[2017-10-27] MEDS ORDERED: METOCLOPRAMIDE HCL INJ/PF 10 MG/2 ML SDV IV ONE (00:13)
[2017-10-27] MEDS ORDERED: METOCLOPRAMIDE HCL INJ/PF 10 MG/2 ML SDV ONE (00:14)
[2017-10-27 00:18] VITALS: BP 110/69
--- NOTE | 2017-10-27 07:58 | EKG REPORT ---
SEVERITY:- ABNORMAL ECG - SINUS TACHYCARDIA NONSPECIFIC ST-T CHANGES- INFERIOR LEADS : Confirmed by: Zan Romano MD 27-Oct-2017 07:57:59
--- NOTE | 2017-10-27 21:36 | PDOC DISCHARGE SUMMARY ---
General - Admit/Disc Date/PCP Admission Date/Primary Care Provider: 10/14/2017 Dr Pedroza Discharge Date: 10/24/17 - Additional Information Home Medications: Albuterol Sulfate [Albuterol Sulfate 2.5mg/3 mL] 1 vial IH Q8HP PRN 10/13/17 Anastrozole [Arimidex 1 mg Tablet] 1 mg PO QPM 10/13/17 Benzonatate [Tessalon Perles 100 mg Capsule] 200 mg PO Q8HP PRN 10/13/17 Cetirizine HCl [Zyrtec 10 mg Tablet] 10 mg PO DAILY 10/13/17 Furosemide [Lasix 20 mg Tablet] 20 mg PO DAILY 10/13/17 Ibuprofen [Motrin 800 mg Tablet] 800 mg PO Q3HWA 10/13/17 Losartan/Hydrochlorothiazide [Losartan-Hctz 50-12.5 mg Tab] 1 each PO QPM Acidoph/L.bulg/Bif.b/S.thermop [Bacid Caplet] 1 each PO BID #30 tablet 10/24/17 Amox Tr/Potassium Clavulanate [Augmentin 875-125 mg Tablet] 1 tab PO BID #20 tablet 10/24/17 Doxycycline Hyclate 100 mg PO BID #20 capsule 10/24/17 Fluticasone Propionate [Flonase Nasal Mccarley 50 Mcg/Mccarley 16 gm] 2 spray NASL Q12 #1 spray.pump 10/24/17 Guaifenesin [Mucinex Sr 600 mg Tablet.sa] 1,200 mg PO Q12 #40 tablet.sa Hydrocodone Bit/Homatropine [Hycodan 5-1.5 mg Tablet] 1 tab PO Q4HP PRN #30 tablet 10/24/17 Polyethylene Glycol 3350 [Miralax Powder 17 gm/Packet] 17 gm PO BID powd.pack 10/24/17 History of Present Illness Patient complains of: shortness of breath History of Present Illness: ARNULFO DE LEÓN is a 57 year old female with a past medical history of breast cancer status post double mastectomy. She presents to the emergency room with rhinorrhea, cough and shortness of breath of increasing severity over the last 6 weeks despite treatment with 2 courses of antibiotics Levaquin followed by Augmentin. In the emergency room she is found to have tachypnea and tachycardia and a CT of the chest showing multifocal airspace disease suggestive of pneumonia versus neoplasm, concerning giving her history and lack of significant leukocytosis. She started on empiric antibiotics, albuterol and Atrovent and referred to the hospitalist for admission. Patient denies chest pain nausea vomiting but has significant anxiety. Hospital Course Hospital Course: (1) acute hypoxemic respiratory failure secondary to aspiration pneumonia Patient was admitted with aspiration pneumonia likely secondary to regurgitated food she had a long course in the hospital And had developed bilateral pneumonia with parapneumonic effusions Patient was treated with vancomycin and Zosyn with improvement of her symptom She had a full course of antibiotics in the hospital Prior to discharge she was evaluated for thoracentesis but it appears that the fluid had decreased in volume And it could not be performed Patient's respiratory status was extremely stable at discharge and she was prescribed 5 days of Augmentin p.o. (2) Aspiration pneumonia due to food (regurgitated) (3) Bilateral pleural effusion parapneumonic effusions improved with antibiotics (4) stage III breast cancer Patient to follow-up with Dr. Pedroza Physical Exam Vital Signs: Temp Pulse Resp BP Pulse Ox 99.4 F 133 H 37 H 110/69 97 10/26/17 22:08 10/26/17 17:49 10/27/17 00:01 10/27/17 00:01 10/27/17 00:01 Intake & Output 10/26/17 10/27/17 10/28/17 00:59 00:59 00:59 Weight 81.4 kg General appearance: PRESENT: no acute distress, cooperative, obese Head exam: PRESENT: atraumatic, normocephalic Eye exam: PRESENT: EOMI, PERRLA Ear exam: PRESENT: normal external ear exam, TM's normal bilaterally Mouth exam: PRESENT: moist, neck supple Neck exam: PRESENT: full ROM. ABSENT: JVD, lymphadenopathy, tenderness - Adequate movement of air with scattered crackles primarily right-sided Cardiovascular exam: PRESENT: RRR. ABSENT: diastolic murmur, systolic murmur Vascular exam: PRESENT: normal capillary refill GI/Abdominal exam: PRESENT: normal bowel sounds, soft. ABSENT: tenderness Extremities exam: PRESENT: full ROM. ABSENT: clubbing, joint swelling, pedal edema Musculoskeletal exam: PRESENT: ambulatory, full ROM Neurological exam: PRESENT: alert, awake, oriented to person, oriented to place , oriented to time, oriented to situation, CN II-XII grossly intact Psychiatric exam: PRESENT: appropriate affect, normal mood Skin exam: PRESENT: intact, normal color Results Laboratory Results: 10/26/17 19:09 10/26/17 19:09 10/26/17 19:09 Troponin I 0.014 Impressions: Chest X-Ray 10/26/17 18:39 IMPRESSION: WORSENING AIRSPACE DISEASE, RIGHT GREATER THAN LEFT. BILATERAL PLEURAL EFFUSIONS. Chest/Abdomen CTA 10/26/17 18:41 IMPRESSION: 1. NORMAL CTA OF THE CHEST. NO PULMONARY EMBOLI. 2. EXTENSIVE INFILTRATE THROUGHOUT THE RIGHT LUNG. LARGE RIGHT PLEURAL EFFUSION AND SMALL LEFT PLEURAL EFFUSION. 3. MEDIASTINAL ADENOPATHY. Abdomen/Pelvis CT 10/26/17 19:12 IMPRESSION: 1. MILD PERIAORTIC ADENOPATHY WHICH HAS INCREASED SINCE THE PRIOR STUDY. 2. STABLE HEPATIC CYSTS. 3. NO OTHER SIGNIFICANT OR ACUTE FINDING IN THE ABDOMEN OR PELVIS ON CT SCAN WITH IV CONTRAST. Plan Discharge Plan: Follow-up with Dr. Pedroza as scheduled Time Spent: Greater than 30 Minutes
== END 2017-10-27 00:15 | disposition short-term general hospital (02) ==
LOC: ER 17:24
DX: J86.9 Pyothorax without fistula (principal); R09.02 Hypoxemia; A41.9 Sepsis, unspecified organism; R11.2 Nausea with vomiting, unspecified; R05 Cough; R09.81 Nasal congestion; E86.0 Dehydration; Z87.891 Personal history of nicotine dependence
CPT/HCPCS: 93005; 36415; 87040; 87086; 82962; 85025; 85610; 85730; 80053; 81001; 84484; 82803; 83605; 87804; 71045; 71275; 74177; 93010; J3490; J1200; J2765 ×2; S0164; J0780; J7030; J3370; J1956; J0692